=== PATIENT | female | born 1940 | race Caucasian/White ===

== ENCOUNTER 2020-01-03 09:58 | Emergency (ER) | payer MEDICARE, SELFPAY ==
[2020-01-03 10:08] VITALS: BP 157/82; PULSE 99; RESP 18; TEMP 36.4; O2SAT 100
--- NOTE | 2020-01-03 10:08 | ED.WOUNDLAC ---
HPI - Wound/Laceration General Chief Complaint: Wound/Laceration Stated Complaint: finger lac Time Seen by Provider: 01/03/20 10:09 History of Present Illness HPI narrative: She cut the tip of her left index finger while slicing food this morning. Bleeding controlled minimal pain. Unsure of tetanus status. Related Data Home Medications Medication Instructions Recorded Confirmed Centrum Silver Women 01/03/20 alendronate mg PO 01/03/20 aspirin 01/03/20 atenolol 01/03/20 calcium carbonate [Calcium 500] 500 mg PO DAILY 01/03/20 01/03/20 echinacea 500 mg PO BID 01/03/20 01/03/20 losartan 01/03/20 omega 9-nzk-iaf-fish oil [Fish Oil] cap PO 01/03/20 pantoprazole PO 01/03/20 protein [Boost High Protein] ea PO 01/03/20 Allergies Allergy/AdvReac Type Severity Reaction Status Date / Time RICE Allergy Severe Swelling Uncoded 02/09/14 01:20 Review of Systems Review of Systems: All systems reviewed & are unremarkable except as noted in HPI and below PMFSH Social History Social History Gender identity (if verbalized by the patient): Female Exam Const: General: healthy appearing, no acute distress and alert Orientation/consciousness: patient oriented x3 HENMT: Head: normal to inspection Resp: Effort & Inspection: normal respiratory effort Skin: General skin exam: normal color Wounds: wounds noted (3 cm laceration to distal left index finger without fingernail involvement) Course Vital Signs Vital signs: Vital Signs Temperature 36.4 C L 01/03/20 10:08 Pulse Rate 99 01/03/20 10:08 Respiratory Rate 18 01/03/20 10:08 Blood Pressure 157/82 H 01/03/20 10:08 Pulse Oximetry 100 01/03/20 10:08 Temperature 36.4 C L 01/03/20 10:08 Pulse Rate 99 01/03/20 10:08 Respiratory Rate 18 01/03/20 10:08 Blood Pressure 157/82 H 01/03/20 10:08 Pulse Oximetry 100 01/03/20 10:08 Procedures Laceration Laceration 1: Site: hand Side (If applicable): left Size (cm): 3 Description: flap Depth: simple, single layer Local Anesthetic: lidocaine 1% Pre-repair: wound explored and irrigated ====== Skin Level ====== Size (cm): 5-0 Number of sutures: 5 Technique: simple, interrupted ====== Subcutaneous Layer ====== ====== Muscle Layer ====== ====== Tendon Layer ====== Discharge Plan Discharge Clinical Impression: Finger laceration Patient Disposition: Home, Self-Care Condition: Stable Instructions: Laceration (ED) Additional Instructions: follow-up for suture removal in 10-14 days Prescriptions: No Action losartan 50 mg tablet RF: 0 alendronate 70 mg tablet PO RF: 0 calcium carbonate [Calcium 500] 500 mg calcium (1,250 mg) Tablet 500 mg PO DAILY RF: 0 pantoprazole 40 mg tablet,delayed release (DR/EC) PO RF: 0 echinacea 500 mg Capsule 500 mg PO BID RF: 0 protein [Boost High Protein] Powder PO RF: 0 aspirin 81 mg Tablet,Chewable RF: 0 atenolol 50 mg tablet RF: 0 omega 5-jpx-mxp-fish oil [Fish Oil] 1,000 mg (120 mg-180 mg) Capsule PO RF: 0 Centrum Silver Women RF: 0 Follow-up/Referrals: Can Thomas MD [Primary Care Provider] - Discharge Date/Time: 01/03/20 11:26
[2020-01-03] MEDS: TETANUS,DIPHTHERIA,AC PERTUSSIS ADULT (0.5 ML) BOOSTRIX IM (10:23)
== END 2020-01-03 11:26 | disposition home or self-care (01) ==
PROVIDERS: Emergency Provider Emergency Medicine; PCP Family Medicine
DX: S61.211A Laceration without foreign body of left index finger without damage to nail, initial encounter (principal); Z23 Encounter for immunization; Z79.82 Long term (current) use of aspirin; W26.0XXA Contact with knife, initial encounter; Y93.G1 Activity, food preparation and clean up
CPT/HCPCS: 12002; 90471; 90715; 99282

== ENCOUNTER 2020-09-06 14:43 | Inpatient (IN) | payer MEDICARE, SELFPAY ==
[2020-09-06] VITALS (9 sets, daily range): BP systolic 118–153; BP diastolic 52–107; PULSE 64–109; RESP 14–18; TEMP 36.1–36.3; O2SAT 96–100; BMI 21.8
--- NOTE | ~2020-09-06 | XR_ITS ---
EXAMINATION: XR chest 2V EXAM DATE: 09/06/2020 15:26 INDICATION: Right-sided midsternal chest pain. TECHNIQUE: Frontal and lateral projections of the chest obtained and reviewed. Comparison is made to prior examination from 06/19/2014. FINDINGS: Moderate chronic hyperinflation. Biapical scarring and change. Some left basilar opacity a lso unchanged probably atelectasis or scarring. No acute airspace disease, pneumothorax or pleural ef fusion. Cardiomediastinal silhouette is normal. There is aortic arteriosclerosis. Mild to moderate lo wer thoracic spondylosis. IMPRESSION: No acute cardiopulmonary findings. Reviewed, dictated and finalized at location B. [employer] ARCHITECT
--- NOTE | 2020-09-06 14:44 | ECG_ITS ---
Measurements Intervals [place] Rate: 77 P: 68 CO: 163 QRS: 32 QRSD: 86 T: 55 QT: 355 QTc: 404 Interpretive Statements SINUS RHYTHM CANNOT RULE OUT SEPTAL INFARCT, AGE INDETERMINATE ABNORMAL ECG Electronically Signed On 09-06-2020 14:56:02 INFORMATION DELIVERY ANALYST by Beau Dykes D.O.
--- NOTE | 2020-09-06 15:29 | ED.CHESTPAIN ---
HPI - Chest Pain General Chief Complaint: Chest Pain Stated Complaint: chest pain Time Seen by Provider: 09/06/20 15:28 Source: patient Mode of arrival: ambulatory Limitations: no limitations History of Present Illness HPI narrative: Patient 80-year-old female complaining of chest pain, midsternal, radiating to her whole chest, 6 out of 10 earlier, currently denies any pain resolved when she arrived, accompanied by mild shortness of breath on exertion. Patient denies any nausea, vomiting, abdominal pain, diaphoresis, fever or chills. Related Data Home Medications Medication Instructions Recorded Confirmed Centrum Silver Women 01/03/20 alendronate mg PO 01/03/20 aspirin 01/03/20 atenolol 01/03/20 calcium carbonate [Calcium 500] 500 mg PO DAILY 01/03/20 01/03/20 echinacea 500 mg PO BID 01/03/20 01/03/20 losartan 01/03/20 omega 7-fal-tjr-fish oil [Fish Oil] cap PO 01/03/20 pantoprazole PO 01/03/20 protein [Boost High Protein] ea PO 01/03/20 Allergies Allergy/AdvReac Type Severity Reaction Status Date / Time RICE Allergy Severe Swelling Uncoded 02/09/14 01:20 Review of Systems Review of Systems: All systems reviewed & are unremarkable except as noted in HPI and below Constitutional: Constitutional: Denies body ache(s), Denies chills, Denies excessive sweating, Denies fatigue, Denies fever(s), Denies headache(s), Denies lethargy, Denies malaise, Denies weakness and Denies weight loss Eyes: Eyes: Denies blurry vision, Denies change in vision and Denies loss of vision ENT: Denies dizziness, Denies ear discharge, Denies headache(s), Denies lip swelling, Denies epistaxis, Denies nasal congestion, Denies neck pain, Denies throat swelling and Denies tongue swelling Cardiovascular: Cardiovascular: Denies diaphoresis, Denies rapid heart rate, Denies edema, Denies irregular heart rhythm, Denies lightheadedness and Denies palpitations Respiratory: Respiratory: Denies chest congestion, Denies cough and Denies hemoptysis Gastrointestinal: Gastrointestinal: Denies abdominal pain, Denies melena, Denies hematochezia, Denies diarrhea, Denies nausea, Denies vomiting and Denies hematemesis Musculoskeletal: Musculoskeletal: Denies abnormal gait, Denies deformity, Denies joint swelling, Denies limited range of motion, Denies neck pain and Denies numbness Neurologic: Denies Abnormal speech present, Denies abnormal gait, Denies confusion, Denies dizziness, Denies headache(s), Denies focal weakness, Denies loss of vision, Denies numbness, Denies Other visual disturbances, Denies Sensory deficit (Neuro) and Denies weakness Psychiatric: Psychiatric: Denies confusion, Denies depression, Denies auditory hallucinations, Denies homicidal ideation and Denies suicidal ideation Endocrine: Endocrine: Denies cold intolerance, Denies excessive sweating, Denies fatigue, Denies heat intolerance and Denies palpitations Hematologic/Lymphatic: Hematologic/Lymphatic: Denies easy bleeding and Denies easy bruising Allergic/Immunologic: Allergic/Immunologic: Denies lip swelling, Denies throat swelling and Denies tongue swelling [facility] Social History Social History Gender identity (if verbalized by the patient): Female Exam Const: General: cooperative, healthy appearing, comfortable, no acute distress, well developed, alert and awake; No confusion Orientation/consciousness: oriented to person, oriented to place and No confusion Limitations: no limitations HENMT: Head: normal to inspection, normocephalic and atraumatic Ears: hearing grossly normal bilaterally, TM normal on the right and TM normal on the left General nose exam: Normal external nose present, Normal nares present and No nasal discharge present Face and sinus: normal facial exam Mouth: Yes Normal oral and palatal mucosa present, Yes lip normal, Yes tongue normal and Yes oropharynx normal Throat: posterior oropharynx normal, tonsils n
[2020-09-06 15:42] LABS: Basophils Percent Auto 0.4 % (0.2-1.2); Eosinophils Absolute Auto 0.2 K/mm3 (0-0.3); Eosinophils Percent Auto 1.4 % (0-4.4); Hematocrit 40.3 % (37.0-47.0); Hemoglobin 13.2 g/dL (12.0-15.0); Immature Granulocyte Absolute 0.05 K/mm3 (0.00-0.031); Immature Granulocyte Percent A 0.5 % (0-0.5); Lymphocytes Absolute Auto 2.98 K/mm3 (0.9-3.2); Lymphocytes Percent Auto 27.6 % (18.3-44.2); Mean Corpuscular HGB Conc 32.8 g/dl (32-36); Mean Corpuscular Hemoglobin 29.7 pg (26-34); Mean Corpuscular Volume 90.6 fl (80-100); Mean Platelet Volume 10.4 fl (7.4-10.4); Monocytes Absolute Auto 0.9 K/mm3 (0.1-0.6); Monocytes Percent Auto 8.3 % (2.6-8.5); Neutrophils Absolute Auto 6.7 K/mm3 (1.3-6.7); Neutrophils Percent Auto 61.8 % (45.5-73.1); Platelet Count Result 305 k/mm3 (150-375); Red Blood Count 4.45 M/mm3 (4.2-5.4); Red Cell Distribution Width 13.1 % (11.5-14.5); White Blood Count 10.8 K/mm3 (4.5-10.0)
[2020-09-06 15:51] LABS: Prothrombin Time 13.9 Seconds (11.1-14.7)
[2020-09-06 15:52] LABS: Partial Thromboplastin Time 23.8 SECONDS (22.3-36.8)
[2020-09-06] MEDS: ASPIRIN 81 MG CHEWABLE TABLET 324 MG PO (15:52)
[2020-09-06 15:54] LABS: Anion Gap 6 mmol/L (8-16); Blood Urea Nitrogen 23 mg/dL (7-17); Calcium 9.6 mg/dL (8.4-10.2); Carbon Dioxide 31 mmol/L (22-30); Chloride 101 mmol/L (98-107); Estimated CRCL calculation 34 ml/min; Estimated Glomerular Filt Rate 60; Glucose 152 mg/dL (65-105); Potassium 4.4 mmol/L (3.4-5.0); Sodium 138 mmol/L (137-145)
[2020-09-06 16:09] LABS: Troponin I 0.031 ng/mL (0.000-0.034)
[2020-09-06] MEDS: ENOXAPARIN 80 MG/0.8 ML SYRINGE 60 MG SUB-Q (19:31)
--- NOTE | 2020-09-06 23:24 | PM.IMHP ---
H&P: HPI History of Present Illness Date/Time: 09/06/20 23:24 Chief Complaint: Chest pain Narrative: Cora Lamar is a 80 year old female with a past medical history of GERD and hypertension who presented to the ER via private vehicle with chest pain. The patient reported that about an hour and a half prior to coming to the ER she began having precordial/midsternal chest pain. Her pain was a 6/10 in intensity. She is unable to describe the quality of the chest pain but thought it was due to her lungs as she had some accompanying shortness of breath. Her pain occurred when she was sitting on the computer typing a. Her pain worsened when she stood up to walk into the kitchen. She did have some tightness in her jaw. She denied any radiation of pain to her arms. She was not having any nausea, vomiting or diaphoresis. She went to lay down after the pain started and tried laying a cool rag across her chest. She did not notice any relief in her symptoms with rest. She thinks that she may have fallen asleep briefly but when she woke up with still having significant chest pain. After she woke up from her nap her primary care physician's office had actually called to give her some results of is a prior labs. She told them of her current symptoms and they suggested she go to the ER. Around that time the patient's daughter had come over to the house and brought the patient to the ER for evaluation. Patient reported that her symptoms resolved when she arrived to triage. She has not noticed any proceeding orthopnea, lower extremity edema, or paroxysmal nocturnal dyspnea. She had never had pain similar to this before. She has had difficulty with asthma and pneumonia in the past and daughter symptoms may be due to that. However she was not having any cough, congestion, fevers or chills. In the ER her initial troponin was negative and her EKG demonstrated possible septal infarct age indeterminate. She is quite concerned that her has it sounds like moderate to severe dementia is at home. Her daughter is currently with her but she wants to be discharged in the morning so that she can go home and take care of her 's or daughter can go to work. I stressed to the patient that she has had a non STEMI/heart attack and that it is best if she remain in the hospital incomplete her cardiac evaluation. She verbalized understanding but is still quite distressed. The patient was alert and oriented x3 but seemed to have some mild confusion. Review of Systems Review of Systems: Narrative: 12 systems were reviewed with pertinent positives and negatives per HPI. Except as documented in the HPI, all other systems were reviewed and are negative. [facility] Past Medical History Medical History (Updated 09/07/20 @ 03:21 by Fatimah Hernández DO) Essential hypertension GERD (gastroesophageal reflux disease) Hemorrhoids Herpes zoster dermatitis 1993 Migraines Overflow stress urinary incontinence in female Post-menopausal osteoporosis Surgical History Surgical History (Updated 09/06/20 @ 23:30 by Fatimah Hernández DO) History of appendectomy History of right knee surgery 1971 Hx of tonsillectomy S/P foot surgery, left Growth removed from left foot 1990 Family History Family History Father Acute myocardial infarction Sibling Heart disease Acute myocardial infarction Mother Hemochromatosis Cerebrovascular accident Leukemia Social History Social History (Updated 09/07/20 @ 03:32 by Fatimah Hernández DO) Social History: She lives in 91-year-old who is moderate to severe dementia. She is primary caregiver. Her daughter lives next door. They have been for 31 years. She has 3 biologic children and 3 step children. Her children are all healthy. Her 59-year-old son does have some difficulty with prostate issues. She used to work answering telephones for
[2020-09-07] VITALS (13 sets, daily range): BP systolic 92–127; BP diastolic 47–70; PULSE 59–78; RESP 12–22; TEMP 36.1–36.9; O2SAT 94–100
--- NOTE | 2020-09-07 00:53 | ADMIMU ---
This patient, Cora Lamar, was admitted to IMU status, and placed in IMU Room 206-02 09/06/20 at 2110. Patient/family oriented to hospital policies and general routines including ID bracelet, bed and alarms, visiting hours, pain management, procedures, bathroom and other care routines, personal items, smoking policy, room service/diet, and visiting hours. Information on how to activate the Rapid Response Team has been discussed. Patient/Family are encouraged to report perceived risks to care and to ask questions if they do not understand what they are told or what they should do.
[2020-09-07 06:01] LABS: Anion Gap 3 mmol/L (8-16); Blood Urea Nitrogen 19 mg/dL (7-17); Calcium 8.8 mg/dL (8.4-10.2); Carbon Dioxide 30 mmol/L (22-30); Chloride 106 mmol/L (98-107); Estimated CRCL calculation 34 ml/min; Estimated Glomerular Filt Rate 60; Glucose 94 mg/dL (65-105); Potassium 3.9 mmol/L (3.4-5.0); Sodium 139 mmol/L (137-145)
--- NOTE | 2020-09-07 07:55 | ECG_ITS ---
Measurements Intervals [place] Rate: 67 P: 38 DC: 145 QRS: 13 QRSD: 80 T: -24 QT: 416 QTc: 441 Interpretive Statements SINUS RHYTHM T WAVE ABNORMALITY IN ANTEROLATERAL LEADS- CONSIDER ISCHEMIA BASELINE ARTIFACT- I, II, III, AVR, AVF, V1 ABNORMAL ECG Electronically Signed On 09-07-2020 11:06:29 FARM MACHINERY ENGINE MECHANIC by Beau Dykes D.O.
[2020-09-07 08:10] LABS: Alanine Aminotransferase 30 U/L (4-35); Albumin Level 3.5 g/dL (3.5-5.1); Alkaline Phosphatase 57 U/L (38-126); Aspartate Amino Transferase 50 U/L (14-36); Bilirubin,Total 0.4 mg/dL (0.2-1.3); Cholesterol 234 mg/dL (0-200); HDL Direct 27 mg/dL; Triglycerides 215 mg/dL (<150)
[2020-09-07 08:21] LABS: LDL Cholesterol Direct 175 mg/dL
[2020-09-07] MEDS: atenoloL 50 MG TABLET PO (10:22)
[2020-09-07] MEDS: CALCIUM CARBONATE (OSCAL) 500 MG TABLET PO (10:23)
[2020-09-07] MEDS: OMEGA 3 POLYUNSAT FATTY ACIDS 1 GM CAP PO (10:23)
[2020-09-07] MEDS: PANTOPRAZOLE 40 MG TABLET PO (10:23)
[2020-09-07] MEDS: MULTIVITAMINS /C LUTEIN (CENTRUM SILVER) TABLET *BKC 1 TAB PO (10:23)
[2020-09-07] MEDS: VITAMIN E 400 UNIT CAPSULE PO (10:23)
[2020-09-07] MEDS: ASPIRIN 81 MG CHEWABLE TABLET PO (10:23)
[2020-09-07] MEDS: CHOLECALCIFEROL 1,000 UNITS TABLET 1000 UNITS PO (10:24)
[2020-09-07] MEDS: LOSARTAN POTASSIUM 50 MG TABLET PO (10:24)
[2020-09-07] MEDS: VITAMIN B COMPLEX CAPSULE 1 CAP PO (10:24)
--- NOTE | 2020-09-07 12:52 | PM.CNCAR ---
Assessment and Plan Additional Plan NSTEMI, EKG changes concerning for LAD disease, plan heparin, ASA, statin, B-tata, TTE and cath on wednesday, We will cosnider urgent cath if she becomes unstable. History of Present Illness History of Present Illness Consult date/time: 09/07/20 12:52 Reason For Visit: NSTEMI Narrative: Patient presented with acute diffuse chest pain started yesterday, lasted for hours, severe, non radiating, no precipitating or relieving factors. No priro similar episodes. Today she feels better. Review of Systems Review of Systems: All systems reviewed & are unremarkable except as noted in HPI and below PMFSH Past Medical History Medical History (Updated 09/07/20 @ 03:21 by Fatimah Hernández DO) Essential hypertension GERD (gastroesophageal reflux disease) Hemorrhoids Herpes zoster dermatitis 1993 Migraines Overflow stress urinary incontinence in female Post-menopausal osteoporosis Surgical History Surgical History (Updated 09/06/20 @ 23:30 by Fatimah Hernández DO) History of appendectomy History of right knee surgery 1971 Hx of tonsillectomy S/P foot surgery, left Growth removed from left foot 1990 Family History Family History Father Acute myocardial infarction Sibling Heart disease Acute myocardial infarction Mother Hemochromatosis Cerebrovascular accident Leukemia Social History Social History (Updated 09/07/20 @ 03:32 by Fatimah Hernández DO) Social History: She lives in 91-year-old who is moderate to severe dementia. She is primary caregiver. Her daughter lives next door. They have been for 31 years. She has 3 biologic children and 3 step children. Her children are all healthy. Her 59-year-old son does have some difficulty with prostate issues. 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 She is a lifelong nonsmoker. She used to drink on occasion but has not done so in many years. She denies illicit substance use. She ambulates with a cane. Primary care physician: Dr. Can Thomas Code status: Full code Surrogate decision maker: Althea Vela (daughter) Smoking status: Never smoker Second hand tobacco smoke exposure: Yes Alcohol intake: never Substance use: never Gender identity (if verbalized by the patient): Female Spiritual care concerns: No Meds Home Medications and Allergies Home Medications Medication Instructions Recorded Confirmed Type Centrum Silver Women 1 tablet PO DAILY 01/03/20 09/06/20 History alendronate 70 mg PO WEEKLY 01/03/20 09/06/20 History aspirin 81 mg PO DAILY 01/03/20 09/06/20 History atenolol 50 mg PO DAILY 01/03/20 09/06/20 History calcium carbonate [Calcium 500] 500 mg PO DAILY 01/03/20 09/06/20 History echinacea 760 mg PO DAILY 01/03/20 09/06/20 History losartan 50 mg PO DAILY 01/03/20 09/06/20 History omega 9-gmn-hqo-fish oil [Fish Oil] 1 cap PO DAILY 01/03/20 09/06/20 History protein [Boost High Protein] 1 ea PO DAILY 01/03/20 09/06/20 History cholecalciferol (vitamin D3) 25 mcg PO DAILY 09/06/20 09/06/20 History [Vitamin D3] pantoprazole 40 mg PO DAILY 09/06/20 09/06/20 History vitamin B complex [B 1 tablet PO DAILY 09/06/20 09/06/20 History Complex-Vitamin B12] vitamin E 400 unit PO DAILY 09/06/20 09/06/20 History Allergies Allergy/AdvReac Type Severity Reaction Status Date / Time RICE Allergy Severe Swelling Uncoded 09/06/20 21:33 Vital Signs Vital Signs - 24 hr 09/06/20 14:58 09/06/20 15:19 09/06/20 15:52 Temperature 36.2 C L Pulse Rate 83 77 70 Respiratory Rate 18 18 18 Blood Pressure 135/77 149/80 H Pulse Oximetry 100 96 98 09/06/20 17:08 09/06/20 18:08 09/06/20 19:23 Temperature Pulse Rate 67 64 109 H Respiratory Rate 15 16 14 Blood Pressure 123/62 141/67 H 153/107 H Pulse Oximetry 99 99 97 09/06/20 21:16 09/06/20 21:20 09/06/20 23:58 Temperature 36.1 C L 36.
--- NOTE | 2020-09-07 15:38 | PM.IMPN ---
Progress Note: A&P Assessment and Plan (1) Non-ST elevated myocardial infarction (non-STEMI): Code(s): I21.4 - Non-ST elevation (NSTEMI) myocardial infarction Status: Acute (2) Essential hypertension: Code(s): I10 - Essential (primary) hypertension Status: Acute (3) Hyperlipidemia: Code(s): E78.5 - Hyperlipidemia, unspecified Status: Acute Additional Plan 09/06/20:: Patient presented with chest pain and labs demonstrated evidence of non STEMI. Patient is not having any further chest pain. She received 325 mg of aspirin and 1 dose of therapeutic Lovenox. Cardiology was consulted. Patient has been admitted to IMU and is being monitored on telemetry. Serial cardiac enzymes have demonstrated significant troponin elevation. Patient's home angiotensin receptor tata and beta-tata were continued. The patient's blood pressure has been intermittently outside of the goal range since admission. P.r.n. nitroglycerin been ordered. 09/07/20:: Mey is chest pain free. She is worried about her . EKG repeated today showing T wave changes in the anteriolateral leads. EKG reviewed and these are new changes with inverted T waves now. Trop peaked at 4.4. TG 215. TC 234. LDL 175 and HDL 27. Lipitor started. Appreciate cardiology input. [facility] planned for Wednesday. Lovenox continued Subjective Date/time seen: 09/07/20 15:38 Interval history: Date of service 09/07 80yo female with HTN here for CP and found to have NSTEMI. No further CP since admisison. No SOB. SHe is under a lot of stress due to caring for her semile . No n/v. No abd pain. Exam Narrative: Exam Narrative: AF 98.0 93/47 75 12 94% ra Gen - NARD Chest - CTA bilaterally, nml RR CV - RRR S1/S2; Tele showing PVCs Abd - Soft, NT/ND, Positive BS Ext - No pedal edema Neuro - Alert and oriented. Nonfocal exam. Psych - Nml mood and affect Skin - Warm and dry Objective Data Vital Signs Vital Signs: Vital Signs - 24 hr 09/06/20 15:52 09/06/20 17:08 09/06/20 18:08 Temperature Pulse Rate 70 67 64 Respiratory Rate 18 15 16 Blood Pressure 123/62 141/67 H Pulse Oximetry 98 99 99 09/06/20 19:23 09/06/20 21:16 09/06/20 21:20 Temperature 97 F L Pulse Rate 109 H 85 81 Respiratory Rate 14 18 Blood Pressure 153/107 H 147/60 H Pulse Oximetry 97 100 09/06/20 23:58 09/07/20 00:00 09/07/20 02:00 Temperature 97.3 F L Pulse Rate 66 78 63 Respiratory Rate 18 Blood Pressure 118/52 L Pulse Oximetry 100 09/07/20 04:00 09/07/20 06:00 09/07/20 08:00 Temperature 96.9 F L 97.5 F L Pulse Rate 72 61 72 Respiratory Rate 18 22 H Blood Pressure 127/70 101/51 L Pulse Oximetry 100 97 09/07/20 10:00 09/07/20 10:22 09/07/20 12:00 Temperature 98 F Pulse Rate 70 78 60 Respiratory Rate 12 Blood Pressure 93/47 L Pulse Oximetry 94 09/07/20 14:00 Temperature Pulse Rate 75 Respiratory Rate Blood Pressure Pulse Oximetry Intake/Output Intake/Output: Intake & Output 09/04/20 09/05/20 09/06/20 09/07/20 23:59 23:59 23:59 23:59 Intake Total 0 Output Total 1100 Balance -1100 Meds/Results Medications: Active Medications Generic Name Dose Route Start Last Admin Trade Name Willyq PRN Reason Stop Dose Admin Aspirin 81 mg 09/07/20 08:00 09/07/20 10:23 Aspirin 81 Mg Chewable Tablet PO 81 mg DAILY@0800 [facility] Administration Atenolol 50 mg 09/07/20 09:00 09/07/20 10:22 Atenolol 50 Mg Tablet PO 50 mg DAILY [facility] Administration Atorvastatin Calcium 40 mg 09/07/20 09:00 Atorvastatin 40 Mg Tablet PO DAILY [facility] Calcium Carbonate 500 mg 09/07/20 09:00 09/07/20 10:23 Calcium Carbonate (Oscal) 500 Mg Tablet PO 500 mg DAILY [facility] Administration Enoxaparin Sodium 55 mg 09/07/20 14:00 Enoxaparin 60 Mg/0.6 Ml Syringe SUB-Q Q12H [facility] Fish Oil 1 gm 09/07/20 09:00 09/07/20 10:23 [place] 3 Polyunsat Fatty Acids 1 Gm Ca
[2020-09-07] MEDS: ATORVASTATIN 40 MG TABLET PO (16:45)
[2020-09-07] MEDS: ENOXAPARIN 60 MG/0.6 ML SYRINGE 55 MG SUB-Q (16:45)
[2020-09-08] VITALS (17 sets, daily range): BP systolic 102–145; BP diastolic 52–65; PULSE 57–83; RESP 16–18; TEMP 36.1–36.7; O2SAT 90–100
[2020-09-08] MEDS: ENOXAPARIN 60 MG/0.6 ML SYRINGE 55 MG SUB-Q ×2 (05:56→17:14)
[2020-09-08] MEDS: atenoloL 50 MG TABLET PO (10:32)
[2020-09-08] MEDS: CALCIUM CARBONATE (OSCAL) 500 MG TABLET PO (10:32)
[2020-09-08] MEDS: OMEGA 3 POLYUNSAT FATTY ACIDS 1 GM CAP PO (10:32)
[2020-09-08] MEDS: VITAMIN E 400 UNIT CAPSULE PO (10:32)
[2020-09-08] MEDS: VITAMIN B COMPLEX CAPSULE 1 CAP PO (10:33)
[2020-09-08] MEDS: CHOLECALCIFEROL 1,000 UNITS TABLET 1000 UNITS PO (10:33)
[2020-09-08] MEDS: MULTIVITAMINS /C LUTEIN (CENTRUM SILVER) TABLET *BKC 1 TAB PO (10:33)
[2020-09-08] MEDS: PANTOPRAZOLE 40 MG TABLET PO (10:33)
[2020-09-08] MEDS: LOSARTAN POTASSIUM 50 MG TABLET PO (10:33)
[2020-09-08] MEDS: ASPIRIN 81 MG CHEWABLE TABLET PO (10:36)
--- NOTE | 2020-09-08 11:47 | PM.PNCARD ---
Progress Note: A&P Additional Plan NSTEMI, HTN and dyslipidemia, plan CAth in AM, Lovenox, ASA, Statin, B-taat, ARB Subjective Date/time seen: 09/08/20 11:47 Interval history: No acute events overnight Tele: Review of Systems Review of Systems: All systems reviewed & are unremarkable except as noted in HPI and below Exam Const: General: comfortable and no acute distress Other: Able to lie flat HENMT: General nose exam: Normal nares present and no epistaxis Mouth: Yes moist mucous membranes Eyes: Sclera: sclerae normal Pupils: Equal, round and reactive pupils present Neck: Neck: supple and no JVD Carotids: no bruits Resp: Auscultation: clear to auscultation bilaterally and lung sounds not diminished Other: No chest wall tenderness Cardio: Rate: regular rate Rhythm: regular rhythm Heart sounds: no gallops, no murmurs and no rubs GI: GI Palp: Yes Soft to palpation and No Tenderness to palpation present (GI) Auscultation: normal bowel sounds Skin: General skin exam: normal color, rashes and/or lesions noted and no erythema Other: Warm Neuro: Cranial nerves: Yes Equal, round and reactive pupils present Speech: normal speech Other: No obvious focal deficit or facial asymmetry Extrem: General: no edema Other: Normal capillary refills Intact distal pulses. Objective Data Vital Signs Vital Signs: Vital Signs - 24 hr 09/07/20 12:00 09/07/20 14:00 09/07/20 16:00 Temperature 36.6 C 36.9 C Pulse Rate 60 75 66 Respiratory Rate 12 12 Blood Pressure 93/47 L 92/48 L Pulse Oximetry 94 99 09/07/20 20:00 09/07/20 22:00 09/07/20 23:41 Temperature 36.3 C L 36.2 C L Pulse Rate 71 76 66 Respiratory Rate 18 18 Blood Pressure 93/52 L 95/56 L Pulse Oximetry 96 97 09/08/20 00:00 09/08/20 02:00 09/08/20 04:00 Temperature 36.1 C L Pulse Rate 65 67 63 Respiratory Rate 18 Blood Pressure 102/54 L Pulse Oximetry 97 91 09/08/20 06:00 09/08/20 08:00 09/08/20 08:21 Temperature 36.3 C L Pulse Rate 60 74 Respiratory Rate 16 Blood Pressure 107/62 Pulse Oximetry 97 90 09/08/20 10:32 Temperature Pulse Rate 77 Respiratory Rate Blood Pressure Pulse Oximetry Intake/Output Intake/Output: Intake & Output 09/05/20 09/06/20 09/07/20 09/08/20 23:59 23:59 23:59 23:59 Intake Total 0 120 Output Total 1500 700 Balance -1500 -580 Meds/Results Medications: Active Medications Generic Name Dose Route Start Last Admin Trade Name Radha PRN Reason Stop Dose Admin Aspirin 81 mg 09/07/20 08:00 09/08/20 10:36 Aspirin 81 Mg Chewable Tablet PO 81 mg DAILY@0800 TAMARA Administration Atenolol 50 mg 09/07/20 09:00 09/08/20 10:32 Atenolol 50 Mg Tablet PO 50 mg DAILY TAMARA Administration Atorvastatin Calcium 40 mg 09/07/20 09:00 09/07/20 16:45 Atorvastatin 40 Mg Tablet PO 40 mg DAILY TAMARA Administration Calcium Carbonate 500 mg 09/07/20 09:00 09/08/20 10:32 Calcium Carbonate (Oscal) 500 Mg Tablet PO 500 mg DAILY TAMARA Administration Enoxaparin Sodium 55 mg 09/08/20 06:00 09/08/20 05:56 Enoxaparin 60 Mg/0.6 Ml Syringe SUB-Q 55 mg Q12H TAMARA Administration Fish Oil 1 gm 09/07/20 09:00 09/08/20 10:32 [place] 3 Polyunsat Fatty Acids 1 Gm Cap PO 1 gm DAILY TAMARA Administration Losartan Potassium 50 mg 09/07/20 09:00 09/08/20 10:33 Losartan Potassium 50 Mg Tablet PO 50 mg DAILY TAMARA Administration Multivitamins/Minerals 1 tab 09/07/20 09:00 09/08/20 10:33 Multivitamins /C Lutein (Centrum Silver) Tablet *Bkc PO 1 tab QAM TAMARA Administration Nitroglycerin 0.4 mg 09/06/20 19:12 Nitroglycerin Sl 0.4 Mg Tablet SUBLINGUAL Q5MIN PRN Chest Pain Pantoprazole Sodium 40 mg 09/07/20 09:00 09/08/20 10:33 Pantoprazole 40 Mg Tablet PO 40 mg DAILY TAMARA Administration Vitamin B Complex 1 cap 09/07/20 09:00 09/08/20 10:33 Vitamin B Complex Capsule PO 1 cap DAILY TAMARA Adminis
[2020-09-08] MEDS: ATORVASTATIN 40 MG TABLET PO (14:01)
--- NOTE | 2020-09-08 15:24 | PM.IMPN ---
Progress Note: A&P Assessment and Plan (1) Non-ST elevated myocardial infarction (non-STEMI): Code(s): I21.4 - Non-ST elevation (NSTEMI) myocardial infarction Status: Acute (2) Essential hypertension: Code(s): I10 - Essential (primary) hypertension Status: Acute (3) Hyperlipidemia: Code(s): E78.5 - Hyperlipidemia, unspecified Status: Acute Additional Plan 09/06/20:: Patient presented with chest pain and labs demonstrated evidence of non STEMI. Patient is not having any further chest pain. She received 325 mg of aspirin and 1 dose of therapeutic Lovenox. Cardiology was consulted. Patient has been admitted to IMU and is being monitored on telemetry. Serial cardiac enzymes have demonstrated significant troponin elevation. Patient's home angiotensin receptor tata and beta-tata were continued. The patient's blood pressure has been intermittently outside of the goal range since admission. P.r.n. nitroglycerin been ordered. 09/07/20:: Mey is chest pain free. She is worried about her . EKG repeated today showing T wave changes in the anteriolateral leads. EKG reviewed and these are new changes with inverted T waves now. Trop peaked at 4.4. TG 215. TC 234. LDL 175 and HDL 27. Lipitor started. Appreciate cardiology input. LHC planned for Wednesday. Lovenox continued 09/08/20:: Patient appears to be mildly confused after waking up from nap and now seems flustered. No focal findings so will monitor for now. Plan for LHC in the morning. NPO after midnight. Subjective Date/time seen: 09/08/20 15:24 Interval history: Date of service 09/08 80yo female with HTN here for CP and found to have NSTEMI. [place] warm today after a nap. She also states she felt confused after waking up from the nap. She is mostly oriented now. No cp or SOB. Eating okay. No cough. She is worried about her Exam Narrative: Exam Narrative: AF 98.1 110/65 69 16 98% ra Gen - NARD Chest - CTA bilaterally, nml RR CV - RRR S1/S2; Tele showing PVCs Abd - Soft, NT/ND, Positive BS Ext - No pedal edema Neuro - Alert and oriented x3 (did not know the president's name). Nonfocal exam. Psych - Nml mood and affect Skin - Warm and dry Objective Data Vital Signs Vital Signs: Vital Signs - 24 hr 09/07/20 16:00 09/07/20 20:00 09/07/20 22:00 Temperature 98.5 F 97.4 F L Pulse Rate 66 71 76 Respiratory Rate 12 18 Blood Pressure 92/48 L 93/52 L Pulse Oximetry 99 96 09/07/20 23:41 09/08/20 00:00 09/08/20 02:00 Temperature 97.2 F L Pulse Rate 66 65 67 Respiratory Rate 18 Blood Pressure 95/56 L Pulse Oximetry 97 97 09/08/20 04:00 09/08/20 06:00 09/08/20 08:00 Temperature 97 F L 97.4 F L Pulse Rate 63 60 74 Respiratory Rate 18 16 Blood Pressure 102/54 L 107/62 Pulse Oximetry 91 97 09/08/20 08:21 09/08/20 10:00 09/08/20 10:32 Temperature Pulse Rate 83 77 Respiratory Rate Blood Pressure Pulse Oximetry 90 09/08/20 12:00 09/08/20 14:00 Temperature 98.1 F Pulse Rate 77 69 Respiratory Rate 16 Blood Pressure 110/65 Pulse Oximetry 98 Intake/Output Intake/Output: Intake & Output 09/05/20 09/06/20 09/07/20 09/08/20 23:59 23:59 23:59 23:59 Intake Total 0 360 Output Total 1500 700 Balance -1500 -340 Meds/Results Medications: Active Medications Generic Name Dose Route Start Last Admin Trade Name Radha PRN Reason Stop Dose Admin Aspirin 81 mg 09/07/20 08:00 09/08/20 10:36 Aspirin 81 Mg Chewable Tablet PO 81 mg DAILY@0800 [facility] Administration Atenolol 50 mg 09/07/20 09:00 09/08/20 10:32 Atenolol 50 Mg Tablet PO 50 mg DAILY [facility] Administration Atorvastatin Calcium 40 mg 09/07/20 09:00 09/08/20 14:01 Atorvastatin 40 Mg Tablet PO 40 mg DAILY [facility] Administration Calcium Carbonate 500 mg 09/07/20 09:00 09/08/20 10:32 Calcium Carbonate (Oscal) 500 Mg Tablet PO 500 mg DAILY [facility] Administratio
[2020-09-09] VITALS (38 sets, daily range): BP systolic 110–158; BP diastolic 51–94; PULSE 57–94; RESP 15–24; TEMP 35.6–36.6; O2SAT 96–100
[2020-09-09 04:55] LABS: Hematocrit 38.7 % (37.0-47.0); Hemoglobin 12.7 g/dL (12.0-15.0); Mean Corpuscular HGB Conc 32.8 g/dl (32-36); Mean Corpuscular Volume 88.4 fl (80-100); Mean Platelet Volume 10.5 fl (7.4-10.4); Platelet Count Result 280 k/mm3 (150-375); Red Blood Count 4.38 M/mm3 (4.2-5.4); Red Cell Distribution Width 12.9 % (11.5-14.5); White Blood Count 8.9 K/mm3 (4.5-10.0)
[2020-09-09 05:05] LABS: INR 0.9; Prothrombin Time 12.9 Seconds (11.1-14.7)
[2020-09-09 05:06] LABS: Partial Thromboplastin Time 34.4 SECONDS (22.3-36.8)
[2020-09-09 05:09] LABS: Anion Gap 4 mmol/L (8-16); Blood Urea Nitrogen 21 mg/dL (7-17); Calcium 9.1 mg/dL (8.4-10.2); Carbon Dioxide 30 mmol/L (22-30); Chloride 105 mmol/L (98-107); Estimated CRCL calculation 34 ml/min; Estimated Glomerular Filt Rate 60; Glucose 96 mg/dL (65-105); Potassium 4.3 mmol/L (3.4-5.0); Sodium 139 mmol/L (137-145)
--- NOTE | 2020-09-09 08:23 | WPDMODSED ---
Moderate Sedation Note-Pt Data Patient Data Diagnosis: acute coronary syndrome / non ST elevation [place] Present Complaint: no complaints Procedure to be performed/Plan: left heart catheterization Allergies Allergy/AdvReac Type Severity Reaction Status Date / Time rice Allergy Severe Swelling Verified 09/07/20 14:46 Home Medications Medication Instructions Recorded Confirmed Type Centrtriny Silver Women 1 tablet PO DAILY 01/03/20 09/06/20 History alendronate 70 mg PO WEEKLY 01/03/20 09/06/20 History aspirin 81 mg PO DAILY 01/03/20 09/06/20 History atenolol 50 mg PO DAILY 01/03/20 09/06/20 History calcium carbonate [Calcium 500] 500 mg PO DAILY 01/03/20 09/06/20 History echinacea 760 mg PO DAILY 01/03/20 09/06/20 History losartan 50 mg PO DAILY 01/03/20 09/06/20 History omega 5-cin-lkr-fish oil [Fish Oil] 1 cap PO DAILY 01/03/20 09/06/20 History protein [Boost High Protein] 1 ea PO DAILY 01/03/20 09/06/20 History cholecalciferol (vitamin D3) 25 mcg PO DAILY 09/06/20 09/06/20 History [Vitamin D3] pantoprazole 40 mg PO DAILY 09/06/20 09/06/20 History vitamin B complex [B 1 tablet PO DAILY 09/06/20 09/06/20 History Complex-Vitamin B12] vitamin E 400 unit PO DAILY 09/06/20 09/06/20 History Current Medications: Active Medications Aspirin (Aspirin 81 Mg Chewable Tablet) 81 mg PO DAILY@0800 [facility] Last Admin: 09/08/20 10:36 Dose: 81 mg Documented by: Atenolol (Atenolol 50 Mg Tablet) 50 mg PO DAILY [facility] Last Admin: 09/08/20 10:32 Dose: 50 mg Documented by: Atorvastatin Calcium (Atorvastatin 40 Mg Tablet) 40 mg PO DAILY [facility] Last Admin: 09/08/20 14:01 Dose: 40 mg Documented by: Calcium Carbonate (Calcium Carbonate (Oscal) 500 Mg Tablet) 500 mg PO DAILY [facility] Last Admin: 09/08/20 10:32 Dose: 500 mg Documented by: Enoxaparin Sodium (Enoxaparin 60 Mg/0.6 Ml Syringe) 55 mg SUB-Q Q12H [facility] Last Admin: 09/08/20 19:04 Dose: Not Given Documented by: Fish Oil ([place] 3 Polyunsat Fatty Acids 1 Gm Cap) 1 gm PO DAILY [facility] Last Admin: 09/08/20 10:32 Dose: 1 gm Documented by: Losartan Potassium (Losartan Potassium 50 Mg Tablet) 50 mg PO DAILY [facility] Last Admin: 09/08/20 10:33 Dose: 50 mg Documented by: Multivitamins/Minerals (Multivitamins /C Lutein (Centrum Silver) Tablet *Bkc) 1 tab PO QAM [facility] Last Admin: 09/08/20 10:33 Dose: 1 tab Documented by: Nitroglycerin (Nitroglycerin Sl 0.4 Mg Tablet) 0.4 mg SUBLINGUAL Q5MIN PRN PRN Reason: Chest Pain Pantoprazole Sodium (Pantoprazole 40 Mg Tablet) 40 mg PO DAILY [facility] Last Admin: 09/08/20 10:33 Dose: 40 mg Documented by: Vitamin B Complex (Vitamin B Complex Capsule) 1 cap PO DAILY [facility] Last Admin: 09/08/20 10:33 Dose: 1 cap Documented by: Vitamin D (Cholecalciferol 1,000 Units Tablet) 1,000 units PO DAILY [facility] Last Admin: 09/08/20 10:33 Dose: 1,000 units Documented by: Vitamin E (Vitamin E 400 Unit Capsule) 400 unit PO DAILY [facility] Last Admin: 09/08/20 10:32 Dose: 400 unit Documented by: Sedation/Anesthesia: No previous sedation/anesthesia problems (including family history). [facility] Past Medical History Medical History (Updated 09/07/20 @ 20:47 by Jesus Marie MD) Essential hypertension GERD (gastroesophageal reflux disease) Hemorrhoids Herpes zoster dermatitis 1993 Migraines Overflow stress urinary incontinence in female Post-menopausal osteoporosis Surgical History Surgical History (Updated 09/06/20 @ 23:30 by Fatimah Hernández DO) History of appendectomy History of right knee surgery 1971 Hx of tonsillectomy S/P foot surgery, left Growth removed from left foot 1990 Family History Family History Father Acute myocardial infarction Sibling Heart disease Acute myocardial infarction Mother Hemochromatosis Cerebrovascular accident Leukemia Social History Social History (Updated 09/07/20 @ 03:32 by Fatimah Hernández DO) Social History: She lives in 89-year-old
[2020-09-09] MEDS: ASPIRIN 81 MG CHEWABLE TABLET PO (09:17)
--- NOTE | 2020-09-09 10:48 | ECG_ITS ---
Measurements Intervals [place] Rate: 65 P: 59 IN: 165 QRS: 55 QRSD: 82 T: 99 QT: 427 QTc: 445 Interpretive Statements SINUS RHYTHM T WAVE ABNORMALITY IN ANTERIOR LEADS- CONSIDER ISCHEMIA BASELINE ARTIFACT- I, III, AVL, AVF ABNORMAL ECG Electronically Signed On 09-09-2020 14:19:10 [employer]PUTER HARDWARE DEVELOPER by Beau Dykes D.O.
--- NOTE | 2020-09-09 10:54 | WPDCARDPROC ---
Cardiac Cath Procedure Note Date of procedure:: 09/09/20 Performing physician:: Kevin Sifuentes MD Indication:: acute coronary syndrome / non ST elevation [place] Brief clinical history:: this is an 80-year-old lady with no previous history of coronary artery disease who entered the hospital yesterday with chest pain had a moderate troponin rise and developed ECG changes compatible with anterior non ST elevation OR. Procedure Procedure performed:: Left ventriculography coronary angiography percutaneous revascularization (VIV) to proximal LAD Sedation/Medication given:: fentanyl 25 mg Versed 2 mg case start time 9:55 a.m. case end time 10:45 a.m. sedation provided by Chacha Sanchez RN, trained observer Access site:: right femoral artery Estimated blood loss:: 20 cc Procedure note:: patient brought cardiac catheterization lab in the postabsorptive state the right femoral triangle was prepared in the usual fashion. Anesthesia was provided with 1% lidocaine infiltrated locally after this the using the modified Seldinger technique the right femoral artery was punctured and a 5 [place] vascular sheath was placed. Left ventriculography and left-sided hemodynamics were then studied using a 5 [place] angled pigtail catheter. Following this a 5 [place] JR4 catheter was used to engage inject the right coronary artery. After this a 5 [place] FL4 catheter was used to engage inject the left coronary artery. Following this the cine angiograms were then reviewed and after this PCI of the LAD was recommended and carried out as detailed below. Prior to PCI the 5 [place] sheath was changed over guidewire for 6 [place]ian sheath. Patient then received Brilinta 180 mg orally and was systemically anticoagulated with Angiomax for the intervention. Following intervention the sheath was sutured into position to was taken to the holding area for manual recovery there was no sign of any procedural complication the procedure was well tolerated. Mild residual chest pressure upon leaving the cardiac catheterization lab. Findings:: Hemodynamics: The central aortic pressure was 102/36 left ventricle 102/0 end-diastolic of 4 no gradient across the aortic valve upon pullback left ventricle: The LV is normal in size the apical segment is hypodynamic the remainder of the LV contracts normally the global ejection fraction is 65%. The left main coronary artery is moderate caliber and widely patent. The left anterior descending is a moderate caliber artery which has a superior takeoff from the left main with a 90 degree angle and the takeoff. There is then a long area of complex high-grade disease in the proximal LAD with a 95% proximal stenosis and then diffuse 70-80% stenosis in the 1st 1/4 of the artery. This culminates in a 70- 80% stenosis at the end of this described area. The circumflex is a large caliber artery appears to be dominant to the posterior circulation circumflex is mildly disease with luminal irregularities but no flow-limiting lesions are identified. The right coronary artery is small to medium in caliber non dominant and free of significant disease intervention: The left main coronary artery was engaged with several guiding catheters ultimately I was able to perform the intervention using a FL 3.0 guiding catheter which had the necessary upward angle at the end of the catheter to allow the LAD to be intervened upon. The air it lad was then wired using a 0.014 BMW coronary guiding wire. The lesion was pre-dilated using a 2.5 x 30 mm emerge balloon at nominal pressures. The distal area of the disease was then treated using a 2.5 x 18 mm Orsiro drug-eluting stent with a nice anatomical result. This was then treated proximally using a 3.0 x 26 mm Orsiro drug-eluting stent overlapping the 1st device into the proximal area of the vessel. The proximal part of the artery and overlapping segment were then balloon dilated using 3.5 x 12 mm noncom
--- NOTE | 2020-09-09 11:00 | SUR.PHASEII ---
BEGIN PHASE II RECOVERY. RETURNS TO HEALTH EDUCATION AIDE 5 S/P [facility] W/ PCI W/ DR. CHAMPION. RECEIVED STENTS TO PROX AND MID LAD. 6FR SHEATH REMAINS SUTURED INTACT R. GROIN. SITE WITHOUT BLEEDING OR HEMATOMA. GUAZE DRESSING C/D/I. ANGIOMAX GTT CONTINUES AT 19.8ML/HR VIA PUMP ALONG W/ IVF'S ORDERED. ORIENTED TO ROOM AND PLAN OF CARE, BEDREST AND ACTIVITY RESTRICTIONS POST [facility]. DROWSY. VSS. LEG IMMOBILIZER APPLIED TO R. LEG TO PREVENT BENDING AND DISRUPTION OF R. GROIN SHEATH AND SITE. VSS. WILL CONTINUE TO MONITOR.
--- NOTE | 2020-09-09 11:03 | PM.PNCARD ---
Progress Note: A&P Additional Plan severe single-vessel coronary disease with high-grade proximal LAD stenosis status post successful somewhat challenging PCI as described in the procedure note. Patient was started on Brilinta for dual anti-platelet therapy. She was also started on rosuvastatin. She has been on Atenolol l and losartan at home and these will be continued. Kevin Sifuentes MD [facility] Subjective Date/time seen: date of service: 09/09/2020 Interval history: follow-up note in this 80-year-old lady with: Acute coronary syndrome / non ST elevation [place] status post successful revascularization of the proximal LAD is dictated in the procedure note. Patient received 2 drug-eluting stents in overlapping fashion to treat a complex high-grade proximal area of disease in the LAD. Angulated takeoff the LAD off the left main made guiding catheter Selection somewhat challenging. Exam Const: General: comfortable and no acute distress Other: Able to lie flat HENMT: General nose exam: Normal nares present and no epistaxis Mouth: Yes moist mucous membranes Eyes: Sclera: sclerae normal Pupils: Equal, round and reactive pupils present Neck: Neck: supple and no JVD Carotids: no bruits Resp: Auscultation: clear to auscultation bilaterally and lung sounds not diminished Other: No chest wall tenderness Cardio: Rate: regular rate Rhythm: regular rhythm Heart sounds: no gallops, no murmurs and no rubs GI: Auscultation: normal bowel sounds Skin: General skin exam: normal color, rashes and/or lesions noted and no erythema Other: Warm Neuro: Cranial nerves: Yes Equal, round and reactive pupils present Speech: normal speech Other: No obvious focal deficit or facial asymmetry Extrem: General: no edema Other: Normal capillary refills Intact distal pulses. Objective Data Vital Signs Vital Signs: Vital Signs - 24 hr 09/08/20 12:00 09/08/20 14:00 09/08/20 15:52 Temperature 36.7 C 36.6 C Pulse Rate 77 69 68 Respiratory Rate 16 16 Blood Pressure 110/65 107/52 L Pulse Oximetry 98 98 09/08/20 16:00 09/08/20 18:00 09/08/20 19:54 Temperature 36.2 C L Pulse Rate 65 76 79 Respiratory Rate 18 Blood Pressure 145/62 H Pulse Oximetry 100 09/08/20 20:00 09/08/20 22:00 09/08/20 23:23 Temperature Pulse Rate 75 58 L 57 L Respiratory Rate 18 18 Blood Pressure Pulse Oximetry 100 100 09/09/20 00:00 09/09/20 02:00 09/09/20 04:00 Temperature 36.4 C L 36.6 C Pulse Rate 71 59 L 68 Respiratory Rate 18 18 Blood Pressure 116/51 L 122/57 L Pulse Oximetry 96 97 09/09/20 05:45 09/09/20 08:00 Temperature 35.6 C L Pulse Rate 78 76 Respiratory Rate 16 Blood Pressure 110/65 Pulse Oximetry 99 Intake/Output Intake/Output: Intake & Output 09/06/20 09/07/20 09/08/20 09/09/20 23:59 23:59 23:59 23:59 Intake Total 0 1040 Output Total 1500 1450 1300 Balance -1500 -410 -1300 Meds/Results Medications: Active Medications Generic Name Dose Route Start Last Admin Trade Name Freq PRN Reason Stop Dose Admin Aspirin 81 mg 09/07/20 08:00 09/09/20 09:17 Aspirin 81 Mg Chewable Tablet PO 81 mg DAILY@0800 TAMARA Administration Atenolol 50 mg 09/07/20 09:00 09/08/20 10:32 Atenolol 50 Mg Tablet PO 50 mg DAILY TAMARA Administration Atorvastatin Calcium 40 mg 09/07/20 09:00 09/08/20 14:01 Atorvastatin 40 Mg Tablet PO 40 mg DAILY TAMARA Administration Calcium Carbonate 500 mg 09/07/20 09:00 09/08/20 10:32 Calcium Carbonate (Oscal) 500 Mg Tablet PO 500 mg DAILY TAMARA Administration Fish Oil 1 gm 09/07/20 09:00 09/08/20 10:32 [place] 3 Polyunsat Fatty Acids 1 Gm Cap PO 1 gm DAILY TAMARA Administration Sodium Chloride 1,000 mls @ 125 mls/hr 09/09/20 10:48 Normal Saline Iv IV CONT 09/09/20 18:47 .Q8H ONE Losartan Potassium 50 mg 09/07/20 09:00 09/08/20 10:33 Losartan Potassium 50 Mg Tablet PO 50 mg DAILY TAMARA Administrat
--- NOTE | 2020-09-09 11:45 | SUR.PHASEII ---
1ST BAG OF ANGIOMAX COMPLETE; 2ND BAG OF ANGIOMAX STARTED AT 19.8ML/HR VIA PUMP.
--- NOTE | 2020-09-09 12:55 | PC.NURSE ---
4613- To cardiac laborer mine for procedure via stretcher accompanied by RN's
--- NOTE | 2020-09-09 14:35 | SUR.PHASEII ---
2ND BAG OF ANGIOMAX COMPLETE. HAS HAD SCANT BLOODY OOZE IN R. GROIN CREASE. HAVE PLACED GUAZE WICK IN CREASE TO ABSORB SMALL AMOUNTS. SITE REMAINS SOFT. NO NEW CHANGES. VSS. POST PCI EKG COMPLETED AT 1413. HAS BEEN UNABLE TO VOID ON BEDPAN THUS FAR; WILL TRY AGAIN. MAY HAVE SHEATH PULLED 2 HOURS AFTER ANGIOMAX COMPLETE, OR 1635. REVIEWED BEDREST AND ACTIVITY RESTRICTIONS W/ PT. VOICED UNDERSTANDING. WILL CONTINUE TO MONITOR.
--- NOTE | 2020-09-09 14:54 | PM.IMPN ---
Progress Note: A&P Assessment and Plan (1) Non-ST elevated myocardial infarction (non-STEMI): Code(s): I21.4 - Non-ST elevation (NSTEMI) myocardial infarction Status: Acute (2) Essential hypertension: Code(s): I10 - Essential (primary) hypertension Status: Acute (3) Hyperlipidemia: Code(s): E78.5 - Hyperlipidemia, unspecified Status: Acute (4) Confusion: Code(s): R41.0 - Disorientation, unspecified Status: Acute (5) DVT prophylaxis: Code(s): Z29.9 - Encounter for prophylactic measures, unspecified Status: Acute Assessment and Plan: She was on Lovenox. Change to SCDs. Additional Plan 09/06/20:: Patient presented with chest pain and labs demonstrated evidence of non STEMI. Patient is not having any further chest pain. She received 325 mg of aspirin and 1 dose of therapeutic Lovenox. Cardiology was consulted. Patient has been admitted to IMU and is being monitored on telemetry. Serial cardiac enzymes have demonstrated significant troponin elevation. Patient's home angiotensin receptor tata and beta-tata were continued. The patient's blood pressure has been intermittently outside of the goal range since admission. P.r.n. nitroglycerin been ordered. 09/07/20:: Mey is chest pain free. She is worried about her . EKG repeated today showing T wave changes in the anteriolateral leads. EKG reviewed and these are new changes with inverted T waves now. Trop peaked at 4.4. TG 215. TC 234. LDL 175 and HDL 27. Lipitor started. Appreciate cardiology input. LHC planned for Wednesday. Lovenox continued 09/08/20:: Patient appears to be mildly confused after waking up from nap and now seems flustered. No focal findings so will monitor for now. Plan for LHC in the morning. NPO after midnight. 09/29/20:: Patient underwent LHC earlier today and had 2 LAD stents placed for a complex high-grade stenosis in the proximal LAD. She has tolerated the procedure well. Will continue the ASA, Brilinta, statin (will stop Lipitor and contineu Crestor), and Atenolol. Add SCDs. BP remainis well controlled. She was mildly confused yesterday afternoon as well and suspect she has mild owning. No focal findings but consider CT brain if she develops focal findings. Out of bed and walk in halls when okay with Cardiology. Subjective Date/time seen: 09/09/20 14:54 Interval history: Date of service 09/09 80yo female with HTN here for CP and found to have NSTEMI. Mey had LHC earlier today. She feels well. No CP or SOB. No groin or back pain. She is mildly confused currently. RN states patient also had urine retention requiring Perrin. Patient did sit up in bed prior to being allowed to do so and pressure had to be held longer per RN. Exam Narrative: Exam Narrative: AF 97.0 127/76 88 22 100% ra Gen - NARD lying flat in bed Chest - CTA bilaterally, nml RR CV - RRR S1/S2 Abd - Soft, NT/ND, Positive BS. Right groin with small hematoma. 2+ femoral pulse. Ext - No pedal edema Psych - Nml mood and affect. Awake and alert but mildly confused. pleasant and cooperative Skin - Warm and dry Objective Data Vital Signs Vital Signs: Vital Signs - 24 hr 09/08/20 15:52 09/08/20 16:00 09/08/20 18:00 Temperature 98 F Pulse Rate 68 65 76 Respiratory Rate 16 Blood Pressure 107/52 L Pulse Oximetry 98 09/08/20 19:54 09/08/20 20:00 09/08/20 22:00 Temperature 97.2 F L Pulse Rate 79 75 58 L Respiratory Rate 18 18 Blood Pressure 145/62 H Pulse Oximetry 100 100 09/08/20 23:23 09/09/20 00:00 09/09/20 02:00 Temperature 97.5 F L Pulse Rate 57 L 71 59 L Respiratory Rate 18 18 Blood Pressure 116/51 L Pulse Oximetry 100 96 09/09/20 04:00 09/09/20 05:45 09/09/20 08:00 Temperature 98 F 96.1 F L Pulse Rate 68 78 76 Respiratory Rate 18 16 Blood Pressure 122/57 L 110/65 Pulse Oximetry 97 99 09/09/20 11:10 09/09/20 11:25 02
--- NOTE | 2020-09-09 16:15 | SUR.PHASEII ---
FOUND PT. ATTEMPTING TO SIT UP IN BED, DISORIENTED, AGITATED, FORGETFUL AT 1600. ATTEMPTED TO REORIENT AND REMIND WHY NOT ALLOWED TO SIT UP DUE TO SHEATH INTACT R. GROIN SITE. R. GROIN SITE WITHOUT NEW BLEEDING, BUT SUSPICIOUS FOR DEVELOPING HEMATOMA. DR. CHAMPION NOTIFIED OF PT'S ACTION AND STATUS OF R. GROIN SITE. PT. REPORTS NO PAIN IN ABDOMEN, FLANK, OR BACK. VS REMAIN STABLE. PER DR. CHAMPION, CONTINUE TO MONITOR AND MAY NEED TO HOLD ADDITIONAL PRESSURE TO SITE WHEN SHEATH REMOVED TO ACHIEVE HEMOSTASIS.
--- NOTE | 2020-09-09 16:47 | SUR.PHASEII ---
6FR SHEATH PULL FROM R. FEM. ARTERY PER PROTOCOL BY THIS RN. FIRM, STEADY MANUAL PRESSURE HELD TO SITE TO ACHIEVE HEMOSTASIS. SEE DOCUMENTATION.
--- NOTE | 2020-09-09 17:22 | SUR.PHASEII ---
INITIAL HEMOSTASIS ACHIVED TO R. GROIN PUNCTURE SITE AFTER 35 MINUTE PRESSURE HOLD. MONITORING CLOSELY.
--- NOTE | 2020-09-09 17:25 | SUR.PHASEII ---
NOTED HEMATOMA DEVELOPING LATERAL TO PUNCTURE SITE. SMALL, SOFT, BECOMING SL. FIRM. MANUAL PRESSURE HELD TO SITE BY AYESHA Corea RN TO PRESS OUT HEMATOMA. VSS.
--- NOTE | 2020-09-09 17:35 | SUR.PHASEII ---
CONTINUED MANUAL PRESSURE BEING HELD TO R. GROIN HEMATOMA BY NITA KIDD TO INSURE HEMOSTASIS. VSS.
--- NOTE | 2020-09-09 17:50 | SUR.PHASEII ---
HEMOSTASIS ACHIEVED TO R. GROIN PUNCTURE SITE. AREA WITHOUT HEMATOMA; SOFT, NONTENDER. NO BLEEDING NOTED. MILD BRUISING NOTED LATERAL TO PUNCTURE SITE. SITE DRESSED W/ STAT SEAL AND TEGADERM. VSS. IMMOBILIZER REMAIN ON R. LEG. REVIEWED WITH PT. IMPROTANCE OF CONTINUED BEDREST W/ HEAD ON PILLOW AND KEEPING R. LEG STRAIGHT. VOICED UNDERSTANDING. WILL CONTINUE TO MONITOR. BEDREST X 6 HOURS MORE UNTIL 2350 POST HEMOSTASIS.
--- NOTE | 2020-09-09 18:35 | SUR.PHASEII ---
R. GROIN SITE REMAINS WITHOUT HEMATOMA OR BLEEDING. REPORT CALLED TO FATOUMATA ORO RN IN IMU. DR. STEVENS JUST HERE AT 1825 TO SEE PT; UPDATED ON ALL EVENTS. PT. TO RETURN TO IMU 206.2 SOON.
--- NOTE | 2020-09-09 19:10 | SUR.PHASEII ---
END PHASE II RECOVERY. R. GROIN SITE REMAINS STABLE. STAT SEAL AND TEGADERM DRESSING REMAIN C/D/I. NO HEMATOMA OR BLEEDING NOTED. SITE SOFT, NONTENDER. PT. DENIES ANY PAIN TO R. GROIN, R. FLANK, BACK OR ABDOMEN. NO BRUIT NOTED WHEN R. GROIN SITE ASCULTATED. VSS. IVF'S INFUSING ORDERED. ISLAS DRAINING CLEAR YELLOW URINE. RETURNED TO IMU 206.2 ON TELE MONITOR VIA BED. BEDREST UNTIL 2350. BEDSIDE UPDATES AND GROIN CHECK DONE W/ FATOUMATA Fuentes RN AND FELIX MORENO.
[2020-09-09] MEDS: TICAGRELOR 90 MG TABLET PO (20:11)
[2020-09-09] MEDS: PANTOPRAZOLE 40 MG TABLET PO (20:11)
[2020-09-09] MEDS: atenoloL 50 MG TABLET PO (20:11)
[2020-09-09] MEDS: LOSARTAN POTASSIUM 50 MG TABLET PO (20:12)
--- NOTE | 2020-09-09 20:57 | PC.NURSE ---
pt. returned from cardiac computer lab aide at 1910. Recieved report from Macrina cowan.
[2020-09-10] VITALS (13 sets, daily range): BP systolic 91–169; BP diastolic 58–75; PULSE 72–90; RESP 16–18; TEMP 36–36.6; O2SAT 98–100
--- NOTE | 2020-09-10 05:11 | ECG_ITS ---
Measurements Intervals [place] Rate: 80 P: 51 MN: 149 QRS: 50 QRSD: 81 T: 82 QT: 373 QTc: 432 Interpretive Statements SINUS RHYTHM T WAVE ABNORMALITY IN ANTERIOR LEADS- CONSIDER ISCHEMIA ABNORMAL ECG Electronically Signed On 09-10-2020 11:57:10 BAR FINISH OPERATOR by Beau Dykes D.O.
[2020-09-10 05:15] LABS: Hematocrit 39.6 % (37.0-47.0); Mean Corpuscular HGB Conc 32.8 g/dl (32-36); Mean Corpuscular Hemoglobin 29.8 pg (26-34); Mean Corpuscular Volume 90.8 fl (80-100); Mean Platelet Volume 10.7 fl (7.4-10.4); Platelet Count Result 288 k/mm3 (150-375); Red Blood Count 4.36 M/mm3 (4.2-5.4); Red Cell Distribution Width 12.9 % (11.5-14.5); White Blood Count 12.9 K/mm3 (4.5-10.0)
[2020-09-10 05:28] LABS: Anion Gap 5 mmol/L (8-16); Blood Urea Nitrogen 15 mg/dL (7-17); Calcium 8.9 mg/dL (8.4-10.2); Carbon Dioxide 27 mmol/L (22-30); Chloride 106 mmol/L (98-107); Estimated CRCL calculation 38 ml/min; Estimated Glomerular Filt Rate > 60; Glucose 113 mg/dL (65-105); Potassium 3.6 mmol/L (3.4-5.0); Sodium 138 mmol/L (137-145)
[2020-09-10 06:35] LABS: Folic Acid > 20.0 ng/mL (2.76->20)
[2020-09-10] MEDS: OMEGA 3 POLYUNSAT FATTY ACIDS 1 GM CAP PO (08:46)
[2020-09-10] MEDS: CHOLECALCIFEROL 1,000 UNITS TABLET 1000 UNITS PO (08:46)
[2020-09-10] MEDS: VITAMIN B COMPLEX CAPSULE 1 CAP PO (08:46)
[2020-09-10] MEDS: MULTIVITAMINS /C LUTEIN (CENTRUM SILVER) TABLET *BKC 1 TAB PO (08:46)
[2020-09-10] MEDS: VITAMIN E 400 UNIT CAPSULE PO (08:46)
[2020-09-10] MEDS: TICAGRELOR 90 MG TABLET PO (08:46)
[2020-09-10] MEDS: PANTOPRAZOLE 40 MG TABLET PO (08:46)
[2020-09-10] MEDS: ASPIRIN 81 MG CHEWABLE TABLET PO (08:46)
[2020-09-10] MEDS: atenoloL 50 MG TABLET PO (08:46)
[2020-09-10] MEDS: LOSARTAN POTASSIUM 50 MG TABLET PO (08:46)
[2020-09-10] MEDS: ROSUVASTATIN 10 MG TABLET PO (08:46)
[2020-09-10] MEDS: CALCIUM CARBONATE (OSCAL) 500 MG TABLET PO (08:46)
--- NOTE | 2020-09-10 14:35 | PM.PNCARD ---
Progress Note: A&P Assessment and Plan (1) Non-ST elevated myocardial infarction (non-STEMI): Code(s): I21.4 - Non-ST elevation (NSTEMI) myocardial infarction Status: Acute Assessment and Plan: Status post 2 drug-eluting stents to the Left anterior descending on Wednesday, doing well with no chest pain, arrhythmias or CHF. Up and ambulate. Home today per hospitalist. Continue dual anti-platelet therapy for 1 year, beta tata and ARB Increase rosuvastatin to higher dose in view of her recent ACS, 20 mg daily. Has an appointment in our office next week. (2) Essential hypertension: Code(s): I10 - Essential (primary) hypertension Status: Acute Assessment and Plan: BP generally at goal, little bit low this morning. (3) Confusion: Code(s): R41.0 - Disorientation, unspecified Status: Acute Assessment and Plan: Confused particularly at night. Subjective Date/time seen: 09/10/20 14:35 Interval history: Follow-up for: Acute coronary syndrome / non ST elevation VA status post successful revascularization of the proximal LAD is dictated in the procedure note. Patient received 2 drug-eluting stents in overlapping fashion to treat a complex high-grade proximal area of disease in the LAD on Wednesday09/09/20. Angulated takeoff the LAD off the left main made guiding catheter Selection somewhat challenging. Apical hypokinesis with overall good left ventricular function. Date of service 09/10/2020: Patient doing well but has confusion particularly at night and has a sitter. Denies any shortness of breath or chest pain. Some trouble with constipation. Review of Systems Constitutional: Constitutional: Reports fatigue ENT: Denies epistaxis Cardiovascular: Cardiovascular: Denies chest pain, Denies pedal edema, Denies leg edema and Denies palpitations Respiratory: Respiratory: Denies cough, Denies dyspnea and Denies dyspnea on exertion Gastrointestinal: Gastrointestinal: Denies abdominal pain and Reports constipation Genitourinary: Genitourinary: Denies hematuria Musculoskeletal: Musculoskeletal: Reports no additional musculoskeletal complaints Integumentary/Breasts: Skin/Breast: Denies rash Neurologic: Reports confusion Psychiatric: Psychiatric: Reports confusion Exam Narrative: Exam Narrative: Pleasant frail elderly lady in no distress Const: General: comfortable and no acute distress HENMT: General nose exam: no epistaxis Mouth: Yes moist mucous membranes Eyes: EOM: EOMs intact bilaterally Neck: Neck: supple Resp: Effort & Inspection: normal respiratory effort Auscultation: clear to auscultation bilaterally Cardio: Rate: regular rate Rhythm: regular rhythm Heart sounds: no murmurs GI: Inspection: non-distended GI Palp: Yes Soft to palpation and No Tenderness to palpation present (GI) Urinary Catheter: Urinary Catheter: patent and draining and urine clear Skin: General skin exam: normal color Other: Cardiac catheterization site free of ecchymosis or hematoma Neuro: Cognition (Neuro): abnormal cognition Speech: normal speech Motor exam (neuro): Normal motor muscle tone present throughout Other: Oriented to [facility], here for heart attack, unsure of the day or date. Extrem: General: no edema and no pedal edema Psych: Affect: normal affect Objective Data Vital Signs Vital Signs: Vital Signs - 24 hr 09/09/20 14:55 09/09/20 15:55 09/09/20 16:45 Temperature Pulse Rate 79 73 80 Respiratory Rate 18 18 20 Blood Pressure 132/72 141/66 H 132/85 Pulse Oximetry 100 100 99 09/09/20 16:50 09/09/20 17:00 09/09/20 17:10 Temperature Pulse Rate 81 85 85 Respiratory Rate 15 23 H 22 H Blood Pressure 158/78 H 147/73 H 131/81 Pulse Oximetry 97 97 97 09/09/20 17:20 09/09/20 17:30 09/09/20 17:35 Temperature Pulse Rate 85 92 88 Respiratory R
--- NOTE | 2020-09-10 15:40 | PM.DS ---
DS: Admitting Diagnosis Admitting Diagnosis Admitting Diagnosis: Chest pain DS: Discharge Diagnosis Discharge Diagnosis (1) Non-ST elevated myocardial infarction (non-STEMI): Code(s): I21.4 - Non-ST elevation (NSTEMI) myocardial infarction Status: Acute Assessment and Plan: Status post cardiac catheterization with 2 drug-eluting stent placement patient will be discharged on dual antiplatelet statin follow-up with PCP (2) Essential hypertension: Code(s): I10 - Essential (primary) hypertension Status: Acute Assessment and Plan: Continue home medication (3) Hyperlipidemia: Code(s): E78.5 - Hyperlipidemia, unspecified Status: Acute Assessment and Plan: Statin follow-up with PCP DS: Summary Hospital Course Hospital Course: Patient presented to the hospital with chest pain was found to have elevated troponin abnormal lipid panel cardiology was consulted cardiac catheterization was done patient had 2 drug-eluting stent placed successfully without complication patient will be discharged on dual antiplatelet follow-up with cardiology in 1-2 weeks patient had mildly abnormal LFT repeat CMP in 2-3 weeks Time Spent with Patient Time attestation: Total time spent providing and/or coordinating discharge services: Exam Narrative: Exam Narrative: Short physical exam DS: Data Data Completed and Pending Labs on day of discharge: Labs from last 24 hours 09/10/20 09/10/20 09/10/20 04:37 04:37 04:37 WBC 12.9 H RBC 4.36 Hgb 13.0 Hct 39.6 MCV 90.8 MCH 29.8 MCHC 32.8 RDW 12.9 Plt Count 288 MPV 10.7 H Sodium 138 Potassium 3.6 Chloride 106 Carbon Dioxide 27 Anion Gap 5 L BUN 15 D Creatinine 0.80 Estim Creat Clear Calc 38 Estimated GFR > 60 Glucose 113 H Calcium 8.9 Vitamin B12 790.0 Folate > 20.0 H TSH (Reflex) 3.410 Discharge Plan Discharge Attending physician on discharge: Bob Campos M.A. Consulting providers: Mackenzie Sanchez Discharging Clinician: Bob Campos M.A. Patient Disposition: Home, Self-Care Activity: as tolerated Diet: as tolerated Discharge Instructions: Follow up at [facility] Cardiology 9 a.m TuSeptember [address] Sifuentes's nurse practitioner, Dayan Nolasco, at [facility] Cardiology office. Please arrive 15 minutes early for registration. [facility]: [phone]. Call if any questions. Address: [address], [address], [place] [address]. Our office is on the ground floor next to the gift shop of the doctor's office building. Enter through the main entrance for COVID screening. Insert Take it easy for the next 2 weeks. Regular activity around the house is okay but no long walks or exercise. No lifting more than 15 lb for 2 weeks The aspirin and Brilinta are essential to prevent blood clots from forming on your stent. Do not stop them without permission from the Cardiology group. Stopping them prematurely can lead to blood clot on the stent and heart attack. Heart healthy diet. In general, we recommend a reduction of red meat intake and salt intake, and increase in vegetables. Check daily weights in the morning, after voiding. If you gain more than 3 lb, call our office. For a COVID vaccine, contact: [email or web address] Patient Instructions: Antibiotic Form, Heart Attack (DC), Left Heart Catheterization (DC) Stand Alone Forms: General Discharge Information Follow-up/Referrals: Mackenzie Sanchez DO [Physician] - Can Thomas MD [Primary Care Provider] - Discharge Medications: New Brilinta 90 mg Tablet 90 mg PO Q12HR Qty: 60 RF: 11 rosuvastatin [Crestor] 10 mg Tablet 20 mg PO DAILY Qty: 30 RF: 5 Continued losartan 50 mg tablet 50 mg PO DAILY RF: 0 alendronate 70 mg tablet 70 mg PO WEEKLY RF: 0 calcium carbonate [Calcium 500] 500 mg calcium
== END 2020-09-10 17:05 | disposition home or self-care (01) | DRG 247 ==
LOC: ANHED 19:01 → ANHIMU 20:31
PROVIDERS: Emergency Medicine; Internal Medicine Cardiovascular Disease; Specialist; Admitting Provider Internal Medicine; Emergency Provider Emergency Medicine; PCP Family Medicine; Visit Provider Internal Medicine
PROC: 4A023N7 Measurement of Cardiac Sampling and Pressure, Left Heart, Percutaneous Approach (ICD-10-PCS; CPT 93452; principal; 2020-09-09 10:00)
PROC: 027035Z Dilation of Coronary Artery, One Artery with Two Drug-eluting Intraluminal Devices, Percutaneous Approach (ICD-10-PCS; 2020-09-09 10:00)
DX: I21.4 Non-ST elevation (NSTEMI) myocardial infarction (principal); I25.10 Atherosclerotic heart disease of native coronary artery without angina pectoris; I10 Essential (primary) hypertension; E78.5 Hyperlipidemia, unspecified; K21.9 Gastro-esophageal reflux disease without esophagitis; N39.490 Overflow incontinence; N39.3 Stress incontinence (female) (male); M81.0 Age-related osteoporosis without current pathological fracture; R41.0 Disorientation, unspecified; Z79.82 Long term (current) use of aspirin; Z79.899 Other long term (current) drug therapy
CPT/HCPCS: 36415; 71046; 80048; 80061; 80076; 82607; 82746; 84443; 84484; 85025; 85027; 85610; 85730; 93005; 93458; 96372; 99291; A9270; C1725; C1769; C1874; C1887; C1894; C9600; G0378; J0461; J0583; J1644; J1650; J2250; J2370; J3010; J7040

== ENCOUNTER 2021-03-10 19:28 | Observation (INO) | payer MEDICARE, SELFPAY ==
--- NOTE | ~2021-03-10 | CT_ITS ---
EXAMINATION: CTA chest PE protocol DATE: 03/11/2021 00:02 INDICATION: Hemoptysis TECHNIQUE: Computed tomography (CT) pulmonary angiogram of the chest was performed with 100 mL Omnipa que-350 intravenous contrast. Additional 3D reconstructions utilizing coronal maximum intensity proje ction (MIP) were performed. Automated exposure control and iterative reconstruction technique were em ployed. The dose-length product was 155.41 mGy-cm. COMPARISON: None FINDINGS: Excellent contrast opacification of the pulmonary arteries. There is mild streak artifact from dense contrast in the superior vena cava and right atrium. Mild scattered respiratory motion artifact which does not significantly limit evaluation. No pulmonary embolism. Mild emphysema. Mild cylindrical bro nchiectasis and tree-in-bud opacities in the right middle lobe consistent with likely chronic or acut e on chronic infection. Chronic biapical pleural-parenchymal scarring. Additional pleural parenchymal scarring with architectural distortion in the right lower lobe. There is however also an approximate ly 2.5 cm region of groundglass opacity and central irregular septal line thickening more caudally at the right apex which could also be infectious, inflammatory or malignant in etiology such as broncho alveolar carcinoma. No pulmonary edema or pleural effusion. Heart size is normal. Thoracic aorta is n ormal in caliber with no dissection. Multinodular goiter. No pathologically enlarged thoracic lymphad enopathy. Cortical thinning of both kidneys. 1.4 cm left renal cyst. There is however suggestion of a 2.1 cm mass at the upper pole of the left kidney suspicious for renal cell carcinoma. Severe spondyl osis at the thoracolumbar junction with moderate spondylosis of the more cephalad thoracic spine. No suspicious lytic or blastic bone lesions. IMPRESSION: 1. Mild bronchiectasis and tree-in-bud opacities in the right middle lobe consistent with suggesting recurrent acute on chronic pneumonia. 2. Approximately 2.5 cm region of groundglass opacity with central irregular septal line thickening a t the left apex with differential including acute or chronic infection/inflammation or malignancy suc h as bronchoalveolar carcinoma. Recommend correlation with any prior outside imaging. Otherwise would recommend 2-3 month follow-up with consideration for biopsy should the lesion persist. 3. Mild emphysema. 4. Suspicion for a 2.1 cm mass at the upper pole the left kidney with differential including a protei naceous/hemorrhagic cyst. If patient would be a surgical candidate in the setting of renal cell carci noma would recommend further evaluation with pre and postcontrast CT or MRI. 5. Multinodular goiter. Reviewed, dictated and finalized at location A. IMPRESSION: 1. Mild bronchiectasis and tree-in-bud opacities in the right middle lobe consi stent with suggesting recurrent acute on chronic pneumonia. 2. Approximately 2.5 cm region of groundglass opacity with central irregular se ptal line thickening at the left apex with differential including acute or lunchroom monitor carrie infection/inflammation or malignancy such as bronchoalveolar carcinoma. Rec ommend correlation with any prior outside imaging. Otherwise would recommend 2- 3 month follow-up with consideration for biopsy should the lesion persist. 3. Mild emphysema. 4. Suspicion for a 2.1 cm mass at the upper pole the left kidney with different ial including a proteinaceous/hemorrhagic cyst. If patient would be a surgical candidate in the setting of renal cell carcinoma would recommend further evalua tion with pre and postcontrast CT or MRI. 5. Multinodular goiter.
--- NOTE | ~2021-03-10 | XR_ITS ---
EXAMINATION: XR chest 2V DATE: 03/10/2021 19:52 INDICATION: Hematemesis. TECHNIQUE: PA and lateral views of the chest were obtained. COMPARISON: Chest radiograph dated 09/06/2020 FINDINGS: Unchanged hyperexpansion of lungs with biapical pleural-parenchymal scarring, right greater than left . Also unchanged is mild anterior bibasilar atelectasis/scarring at the lingula and right middle lobe . No other airspace opacities, pulmonary edema, pleural effusion or pneumothorax. The cardiomediastin al silhouette is normal. Tortuous and atherosclerotic thoracic aorta. Moderate to severe lower thorac ic predominant spondylosis. Chronic mild anterior wedging of a midthoracic vertebral body. IMPRESSION: 1. No acute cardiopulmonary disease. Reviewed, dictated and finalized at location A.
[2021-03-10 19:30] VITALS: BP 173/74; PULSE 100; RESP 16; TEMP 36.8; O2SAT 100
[2021-03-10 20:24] LABS: Basophils Percent Auto 0.4 % (0.2-1.2); Eosinophils Absolute Auto 0.3 K/mm3 (0-0.3); Eosinophils Percent Auto 4.2 % (0-4.4); Hematocrit 35.6 % (37.0-47.0); Hemoglobin 11.6 g/dL (12.0-15.0); Immature Granulocyte Absolute 0.03 K/mm3 (0.00-0.031); Immature Granulocyte Percent A 0.4 % (0-0.5); Lymphocytes Absolute Auto 1.65 K/mm3 (0.9-3.2); Lymphocytes Percent Auto 22.2 % (18.3-44.2); Mean Corpuscular HGB Conc 32.6 g/dl (32-36); Mean Corpuscular Hemoglobin 29.4 pg (26-34); Mean Corpuscular Volume 90.1 fl (80-100); Mean Platelet Volume 9.3 fl (7.4-10.4); Monocytes Absolute Auto 0.8 K/mm3 (0.1-0.6); Monocytes Percent Auto 10.3 % (2.6-8.5); Neutrophils Absolute Auto 4.7 K/mm3 (1.3-6.7); Neutrophils Percent Auto 62.5 % (45.5-73.1); Platelet Count Result 271 k/mm3 (150-375); Red Blood Count 3.95 M/mm3 (4.2-5.4); Red Cell Distribution Width 13.6 % (11.5-14.5); White Blood Count 7.4 K/mm3 (4.5-10.0)
[2021-03-10 20:32] LABS: Anion Gap 10 mmol/L (8-16); Blood Urea Nitrogen 22 mg/dL (7-17); Calcium 9.7 mg/dL (8.4-10.2); Carbon Dioxide 26 mmol/L (22-30); Chloride 96 mmol/L (98-107); Estimated CRCL calculation 22 ml/min; Estimated Glomerular Filt Rate 36; Glucose 128 mg/dL (65-110); Potassium 3.6 mmol/L (3.4-5.0); Sodium 132 mmol/L (137-145)
[2021-03-10 20:34] LABS: INR 0.9; Partial Thromboplastin Time 28.1 SECONDS (22.3-36.8); Prothrombin Time 12.3 Seconds (11.1-14.7)
[2021-03-10 23:00] VITALS: BP 174/87; PULSE 82; RESP 22; O2SAT 99
[2021-03-10] MEDS: SODIUM CHLORIDE 0.9% IV 500 ML 999 ML IV CONT (23:41)
[2021-03-10] MEDS: PANTOPRAZOLE SODIUM IV 40 MG VIAL IV PUSH (23:41)
--- NOTE | 2021-03-10 23:43 | ED.GENADULT ---
HPI - General Adult General Chief complaint: Unspecified Stated complaint: spitting up blood Time Seen by Provider: 03/10/21 22:48 Source: patient Mode of arrival: ambulatory Limitations: no limitations History of Present Illness HPI narrative: This is an 80 year old female with history of CAD s/p stents who presents for evaluation of hemoptysis. Patient states 1 hour prior to arrival she started coughing up blood. She reports she has had worsening cough recently. She also states this started after she ate and she mentioned she threw up blood. She denies abdominal pain, epistaxis, nausea or melena. She denies fever, chills or dizziness. She takes aspirin and brillinta because she had stent placed in September 2020. Related Data Home Medications Medication Instructions Recorded Confirmed Centrum Silver Women 1 tablet PO DAILY 01/03/20 03/11/21 alendronate 70 mg PO WEEKLY 01/03/20 03/11/21 aspirin 81 mg PO DAILY 01/03/20 03/11/21 atenolol 50 mg PO DAILY 01/03/20 03/11/21 calcium carbonate [Calcium 500] 500 mg PO DAILY 01/03/20 03/11/21 echinacea 400 mg PO DAILY 01/03/20 03/11/21 losartan 50 mg PO DAILY 01/03/20 03/11/21 omega [id number] oil [Fish Oil] 1 cap PO DAILY 01/03/20 03/11/21 protein [Boost High Protein] 1 ea PO DAILY 01/03/20 03/11/21 cholecalciferol (vitamin D3) 25 mcg PO DAILY 09/06/20 03/11/21 [Vitamin D3] pantoprazole 40 mg PO DAILY 09/06/20 03/11/21 vitamin B complex [B 1 tablet PO DAILY 09/06/20 03/11/21 Complex-Vitamin B12] vitamin E 400 unit PO DAILY 09/06/20 03/11/21 Allergies Allergy/AdvReac Type Severity Reaction Status Date / Time rice Allergy Severe Swelling Verified 03/11/21 03:02 Review of Systems Review of Systems: All systems reviewed & are unremarkable except as noted in HPI and below PMFSH Past Medical History Medical History (Updated 03/11/21 @ 07:52 by Sona Cortes MD) Essential hypertension GERD (gastroesophageal reflux disease) Hemorrhoids Herpes zoster dermatitis 1993 Migraines Overflow stress urinary incontinence in female Post-menopausal osteoporosis Surgical History Surgical History (Updated 09/06/20 @ 23:30 by Fatimah Hernández DO) History of appendectomy History of right knee surgery 1971 Hx of tonsillectomy S/P foot surgery, left Growth removed from left foot 1990 Family History Family History Father Acute myocardial infarction Sibling Heart disease Acute myocardial infarction Mother Hemochromatosis Cerebrovascular accident Leukemia Social History Social History (Updated 09/07/20 @ 03:32 by Fatimah Hernández DO) Social History: She lives in 91-year-old who is moderate to severe dementia. She is primary caregiver. Her daughter lives next door. They have been for 31 years. She has 3 biologic children and 3 step children. Her children are all healthy. Her 59-year-old son does have some difficulty with prostate issues. 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 She is a lifelong nonsmoker. She used to drink on occasion but has not done so in many years. She denies illicit substance use. She ambulates with a cane. Primary care physician: Dr. Can Thomas Code status: Full code Surrogate decision maker: Althea Vela (daughter) Smoking status: Never smoker Second hand tobacco smoke exposure: Yes Alcohol intake: never Substance use: never Substance use type: does not use Gender identity (if verbalized by the patient): Female Sexual Orientation (if Verbalized by the Patient): Straight or Heterosexual Spiritual care concerns: No Exam Narrative: GENERAL: Well-appearing, well-nourished, and in no acute distress. HEAD: Normocephalic, atraumatic NOSE: Nares clear, no rhinorrhea or epistaxis THROAT:Mucous membranes moist, Oropharynx normal without erythema, exudate, peritonsillar swelling or fluctuance
[2021-03-11] VITALS (7 sets, daily range): BP systolic 137–158; BP diastolic 62–88; PULSE 65–88; RESP 16–20; TEMP 35.9–36.6; O2SAT 97–100; BMI 26.4
[2021-03-11] MEDS: SODIUM CHLORIDE 0.9% IV 1,000 ML 999 ML IV CONT (01:45)
--- NOTE | 2021-03-11 02:50 | ADMGEN ---
This patient, Cora Lamar, was admitted to Medical Room 340-01. Patient/family oriented to hospital policies and general routines including ID bracelet, bed and alarms, visiting hours, pain management, procedures, bathroom and other care routines, personal items, smoking policy, room service/diet, and visiting hours. Information on how to activate the Rapid Response Team has been discussed. Patient/Family are encouraged to report perceived risks to care and to ask questions if they do not understand what they are told or what they should do.
[2021-03-11] MEDS: SODIUM CHLORIDE 0.9% IV 1,000 ML 125 ML IV CONT ×3 (03:01→16:55)
--- NOTE | 2021-03-11 03:06 | PM.IMHP ---
H&P: HPI History of Present Illness Date/Time: 03/11/21 03:06 Chief Complaint: HEMOPTYSIS Narrative: THIS IS AN 80-YEAR-OLD FEMALE WITH PAST MEDICAL HISTORY SIGNIFICANT FOR OSTEOPOROSIS, HYPERTENSION, GERD: CORONARY ARTERY DISEASE, PATIENT IS ON DUAL ANTI-PLATELET THERAPY. SHE COMES IN TODAY AFTER SHE HAD SEVERAL EPISODES OF COUGHING UP BLOOD HOWEVER PATIENT CAN NOT REALLY TELL IF SHE COUGHED UP THE BLOOD OR VOMITED THE BLOOD BUT BY HISTORY APPEARS TO BE HEMOPTYSIS SHE STATES THAT SHE HAS BEEN COUGHING QUITE A LOT LATELY AND SHE HAS BEEN TAKING COUGH DROPS. SHE DENIES ANY SHORTNESS OF BREATH NO CHEST PAIN NO PND NO ORTHOPNEA NO LEG SWELLING NO FEVERS NO RIGORS NO CHILLS. PRELIMINARY WORKUP WAS SIGNIFICANT FOR CTA PE PROTOCOL FOR BRONCHIECTASES AND INFILTRATES. Review of Systems Review of Systems: HEMOPTYSIS COUGH Constitutional: Constitutional: Denies chills, Denies fatigue, Denies fever(s), Denies lethargy and Denies malaise Eyes: Eyes: Denies change in vision ENT: Denies dysphagia, Denies nasal congestion, Denies nasal discharge, Denies nasal obstruction and Denies odynophagia Cardiovascular: Cardiovascular: Denies irregular heart rhythm, Denies claudication, Denies radiating jaw, neck or arm pain, Denies palpitations, Denies dyspnea on exertion and Denies orthopnea Respiratory: Respiratory: Reports cough and Reports hemoptysis Comments: HEMOPTYSIS Gastrointestinal: Gastrointestinal: Denies abdominal pain, Denies melena, Denies hematochezia, Denies heartburn, Denies nausea and Denies vomiting Genitourinary: Genitourinary: Reports no additional female genitourinary complaints Musculoskeletal: Musculoskeletal: Reports no additional musculoskeletal complaints Integumentary/Breasts: Skin/Breast: Reports system reviewed and no additional complaints, except as docu Neurologic: Reports system reviewed and no additional complaints, except as documented Psychiatric: Psychiatric: Reports no additional psychiatric complaints Endocrine: Endocrine: Reports no additional endocrine complaints Hematologic/Lymphatic: Hematologic/Lymphatic: Reports no additional hematologic/lymphatic complaints Allergic/Immunologic: Allergic/Immunologic: Reports no additional allergic/immunologic complaints [facility] Past Medical History Medical History (Updated 03/11/21 @ 03:17 by Bobby Wagoner MD) Essential hypertension GERD (gastroesophageal reflux disease) Hemorrhoids Herpes zoster dermatitis 1993 Migraines Overflow stress urinary incontinence in female Post-menopausal osteoporosis Surgical History Surgical History (Updated 09/06/20 @ 23:30 by Fatimah Hernández DO) History of appendectomy History of right knee surgery 1971 Hx of tonsillectomy S/P foot surgery, left Growth removed from left foot 1990 Family History Family History Father Acute myocardial infarction Sibling Heart disease Acute myocardial infarction Mother Hemochromatosis Cerebrovascular accident Leukemia Social History Social History (Updated 09/07/20 @ 03:32 by Fatimah Hernández DO) Social History: She lives in 91-year-old who is moderate to severe dementia. She is primary caregiver. Her daughter lives next door. They have been for 31 years. She has 3 biologic children and 3 step children. Her children are all healthy. Her 59-year-old son does have some difficulty with prostate issues. 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 She is a lifelong nonsmoker. She used to drink on occasion but has not done so in many years. She denies illicit substance use. She ambulates with a cane. Primary care physician: Dr. Can Thomas Code status: Full code Surrogate decision maker: Althea Vela (daughter) Smoking status: Never smoker Second hand tobacco smoke exposure: Yes Alcohol intake: never Substance use: never Substance use type: does not u
[2021-03-11 08:29] LABS: Basophils Percent Auto 0.3 % (0.2-1.2); Eosinophils Absolute Auto 0.1 K/mm3 (0-0.3); Eosinophils Percent Auto 0.9 % (0-4.4); Hematocrit 34.3 % (37.0-47.0); Hemoglobin 11.1 g/dL (12.0-15.0); Immature Granulocyte Absolute 0.08 K/mm3 (0.00-0.031); Immature Granulocyte Percent A 0.7 % (0-0.5); Lymphocytes Percent Auto 5.2 % (18.3-44.2); Mean Corpuscular HGB Conc 32.4 g/dl (32-36); Mean Corpuscular Hemoglobin 29.2 pg (26-34); Mean Corpuscular Volume 90.3 fl (80-100); Mean Platelet Volume 9.7 fl (7.4-10.4); Monocytes Percent Auto 8.6 % (2.6-8.5); Neutrophils Absolute Auto 9.8 K/mm3 (1.3-6.7); Neutrophils Percent Auto 84.3 % (45.5-73.1); Platelet Count Result 244 k/mm3 (150-375); Red Cell Distribution Width 13.8 % (11.5-14.5); White Blood Count 11.6 K/mm3 (4.5-10.0)
[2021-03-11 08:59] LABS: Alanine Aminotransferase 26 U/L (4-35); Albumin Level 3.7 g/dL (3.5-5.1); Alkaline Phosphatase 50 U/L (38-126); Anion Gap 7 mmol/L (8-16); Aspartate Amino Transferase 29 U/L (14-36); Bilirubin,Total 0.5 mg/dL (0.2-1.3); Blood Urea Nitrogen 18 mg/dL (7-17); Calcium 8.8 mg/dL (8.4-10.2); Carbon Dioxide 24 mmol/L (22-30); Chloride 106 mmol/L (98-107); Estimated CRCL calculation 32 ml/min; Estimated Glomerular Filt Rate 48; Glucose 110 mg/dL (65-110); Potassium 3.7 mmol/L (3.4-5.0); Sodium 137 mmol/L (137-145)
[2021-03-11] MEDS: CALCIUM CARBONATE (OSCAL) 500 MG TABLET PO (09:18)
[2021-03-11] MEDS: VITAMIN B COMPLEX CAPSULE 1 CAP PO (09:18)
[2021-03-11] MEDS: CHOLECALCIFEROL 1,000 UNITS TABLET 1000 UNITS PO (09:18)
[2021-03-11] MEDS: TICAGRELOR 90 MG TABLET PO ×2 (09:18→20:11)
[2021-03-11] MEDS: atenoloL 50 MG TABLET PO (09:18)
[2021-03-11] MEDS: ROSUVASTATIN 10 MG TABLET 20 MG PO (09:18)
[2021-03-11] MEDS: VITAMIN E 400 UNIT CAPSULE PO (09:19)
[2021-03-11] MEDS: ASPIRIN 81 MG CHEWABLE TABLET PO (09:19)
[2021-03-11] MEDS: PANTOPRAZOLE 40 MG TABLET PO (09:19)
--- NOTE | 2021-03-11 16:10 | PM.IMPN ---
Progress Note: A&P Assessment and Plan (1) Bronchiectasis with (acute) exacerbation: Code(s): J47.1 - Bronchiectasis with (acute) exacerbation Status: Acute Assessment and Plan: Imaging consistent with possible acute or chronic inflammation or infection - recommend repeat CT in 2 to 3 months to re-evaluate. She was started on azithromycin and rocephin, continue. Albuterol as needed. (2) Pneumonia: Qualifiers: Pneumonia type: due to unspecified organism Laterality: unspecified laterality Lung location: unspecified part of lung Qualified Code(s): J18.9 - Pneumonia, unspecified organism Code(s): J18.9 - Pneumonia, unspecified organism Status: Acute Assessment and Plan: See above. (3) Cough with hemoptysis: Code(s): R04.2 - Hemoptysis Status: Acute Assessment and Plan: Patient remains on dual anti-platelet therapy. This is continued at this time, can be reconsidered if hemoptysis persists but she has had none today. Consider pulmonology consult if worsening. (4) SHIKHA (acute kidney injury): Code(s): N17.9 - Acute kidney failure, unspecified Status: Acute Assessment and Plan: Mild and improved with IV hydration. Adequate oral intake today, stop IV fluids. Monitor renal function and electrolytes. (5) GERD (gastroesophageal reflux disease): Qualifiers: Esophagitis presence: without esophagitis Qualified Code(s): K21.9 - Gastro-esophageal reflux disease without esophagitis Code(s): K21.9 - Gastro-esophageal reflux disease without esophagitis Status: Acute Assessment and Plan: No acute issues, continue PPI. (6) Essential hypertension: Code(s): I10 - Essential (primary) hypertension Status: Acute Assessment and Plan: Stable, last 138/77. Continue home atenolol. Losartan is held due to renal function. (7) Renal mass: Code(s): N28.89 - Other specified disorders of kidney and ureter Status: Acute Assessment and Plan: Incidental finding on imaging, discussed with patient. Consider pre and post contrast CT or MRI for further evaluation. Will defer this to outpatient at this time given her SHIKHA. Subjective Date/time seen: 03/11/21 1540 Interval history: Ms. Lamar is a pleasant 80yo F with history of hypertension seen in follow-up for pneumonia. She is feeling better today. She has not coughed up any blood today. Denies chest pain or shortness of breath. Denies nausea or vomiting. Review of Systems Review of Systems: All systems reviewed & are unremarkable except as noted in HPI and below Exam Narrative: General: Elderly female resting comfortable sitting up in bedside chair in no acute distress. HEENT: Normocephalic, EOMI, oral mucosa moist. Cardiovascular: Rate and rhythm are regular. Respiratory: Faint bibasilar rhonchi. Respirations even and non-labored. Tolerating room air. Abdomen: Soft, non-tender, non-distended, bowel sounds present. Extremities: Peripheral pulses intact. No edema or pain to palpation. Neuro: Awake and alert; answering questions appropriately. No focal neurological deficits. Speech is clear. Objective Data Vital Signs Vital Signs: Last Vital Signs Temp 96.7 F L 03/11/21 14:36 Pulse 77 03/11/21 14:36 Resp 18 03/11/21 14:36 BP 138/77 03/11/21 14:36 Pulse Ox 100 03/11/21 14:36 Intake/Output Intake/Output: Intake & Output 03/08/21 03/09/21 03/10/21 03/11/21 23:59 23:59 23:59 23:59 Intake Total 3280 Output Total 1225 Balance 2055 Meds/Results Medications: Active Medications Generic Name Dose R
[2021-03-12 04:17] VITALS: BP 139/52; PULSE 70; RESP 17; TEMP 36.3; O2SAT 98
[2021-03-12 06:05] LABS: Basophils Percent Auto 0.5 % (0.2-1.2); Eosinophils Absolute Auto 0.5 K/mm3 (0-0.3); Eosinophils Percent Auto 6.3 % (0-4.4); Hematocrit 30.5 % (37.0-47.0); Hemoglobin 10.2 g/dL (12.0-15.0); Immature Granulocyte Absolute 0.03 K/mm3 (0.00-0.031); Immature Granulocyte Percent A 0.4 % (0-0.5); Lymphocytes Absolute Auto 1.15 K/mm3 (0.9-3.2); Lymphocytes Percent Auto 13.5 % (18.3-44.2); Mean Corpuscular HGB Conc 33.4 g/dl (32-36); Mean Corpuscular Hemoglobin 29.7 pg (26-34); Mean Corpuscular Volume 88.9 fl (80-100); Monocytes Absolute Auto 0.8 K/mm3 (0.1-0.6); Monocytes Percent Auto 9.2 % (2.6-8.5); Neutrophils Percent Auto 70.1 % (45.5-73.1); Platelet Count Result 218 k/mm3 (150-375); Red Blood Count 3.43 M/mm3 (4.2-5.4); Red Cell Distribution Width 13.9 % (11.5-14.5); White Blood Count 8.5 K/mm3 (4.5-10.0)
[2021-03-12 06:18] LABS: Alanine Aminotransferase 21 U/L (4-35); Albumin Level 3.2 g/dL (3.5-5.1); Alkaline Phosphatase 45 U/L (38-126); Anion Gap 5 mmol/L (8-16); Aspartate Amino Transferase 25 U/L (14-36); Bilirubin,Total 0.4 mg/dL (0.2-1.3); Blood Urea Nitrogen 14 mg/dL (7-17); Calcium 8.4 mg/dL (8.4-10.2); Carbon Dioxide 24 mmol/L (22-30); Chloride 107 mmol/L (98-107); Estimated CRCL calculation 29 ml/min; Estimated Glomerular Filt Rate 43; Glucose 91 mg/dL (65-110); Magnesium 1.8 mg/dL (1.6-2.3); Potassium 3.4 mmol/L (3.4-5.0); Sodium 136 mmol/L (137-145)
[2021-03-12] MEDS: ROSUVASTATIN 10 MG TABLET 20 MG PO (08:14)
[2021-03-12] MEDS: ASPIRIN 81 MG CHEWABLE TABLET PO (08:14)
[2021-03-12] MEDS: VITAMIN B COMPLEX CAPSULE 1 CAP PO (08:14)
[2021-03-12 08:15] VITALS: PULSE 64
[2021-03-12] MEDS: PANTOPRAZOLE 40 MG TABLET PO (08:15)
[2021-03-12] MEDS: CALCIUM CARBONATE (OSCAL) 500 MG TABLET PO (08:15)
[2021-03-12] MEDS: VITAMIN E 400 UNIT CAPSULE PO (08:15)
[2021-03-12] MEDS: CHOLECALCIFEROL 1,000 UNITS TABLET 1000 UNITS PO (08:15)
[2021-03-12] MEDS: TICAGRELOR 90 MG TABLET PO (08:15)
[2021-03-12] MEDS: atenoloL 50 MG TABLET PO (08:15)
--- NOTE | 2021-03-12 10:42 | PM.CNPUL ---
Assessment and Plan Assessment and plan (1) Bronchiectasis with (acute) exacerbation: Code(s): J47.1 - Bronchiectasis with (acute) exacerbation Status: Acute Assessment and Plan: She has scattered areas of bronchiectasis in both lungs, tree in bud area in the right middle lobe with ground-glass opacities that probably is acute on chronic infection. She has had recurrent respiratory infections for many years and on occasion is used inhalers; she has an area of suspicious inflammation versus malignancy in the left upper lobe 2.5 cm. She does not have any additional hemoptysis or symptoms to suggest cancer, she has anemia but does not have weight loss, difficulty swallowing, shortness of breath, chest pain or malaise. Best option for this patient is a follow-up chest CT in 2-3 months. We will happily follow her in the office. I agree with treating her as a community-acquired pneumonia and we will finish her workup for bronchiectasis and her abnormal area in the left upper lobe as an outpatient. She is stable to go home today. Thank you for this consult. I discussed this with Lola Colmenares PA-C. She has senile emphysema, non-smoker, exposed to second hand smoke. PLAN: Discharge home, oral antibiotics, Cornet valve to improve pulmonary hygiene for underlying bronchiectasis with acute exacerbation, we will get pulmonary function tests 6 minute walk and other follow-up CT in 2-3 months. f/u appt with me in 2- weeks. (2) Cough with hemoptysis: Onset Date: ~03/12/21 Code(s): R04.2 - Hemoptysis Status: Acute Assessment and Plan: She had 30 minutes of hemoptysis which may have represented also some vomiting, and has not had any since she was admitted. She was on dual anti-platelet therapy for CAD on admission. This problem has resolved. History of Present Illness History of Present Illness Consult date: 03/12/21 Requesting physician: Lola Yost PA-C Reason for consult: other (hemoptysis, pneumonia, abnormal chest CT with possible malignanacy) Chief complaint: pneumonia, hemoptypsis, acute renal failure Narrative: NEW: Cora Esteban is 80 yo female with hx of recurrent bronchitis and pneumonia. She generally has a few episodes a year. She has been admitted to a hospital only 2 or 3 times total over many years, usually treated at home. She has CAD and is on Dual anti-platelet therapy. . She is in generally good health and takes care of her 91-year-old demented . For the last 3 weeks she has had increased coughing which she attributed to uptick in her allergies. She has frequent coughing and says other symptoms in different parts of her house for example using her computer. She is sensitive to dust and other allergens.A few days ago she had the acute onset of bright red blood, was coughing up for about a half an hour. She had a large amount of fluid come up, and the description suggest that she vomited. Sometimes is difficult to tell the difference between him coughing something up and vomiting. It is not clear if she was coughing to the point of vomiting or expectorating from her lungs. She did not have shortness of breath or chest pain. After 1/2 hour of this she decided to come to the hospital. She has not had any additional episodes since arrival. She had a chest CT that shows bronchiectasis, tree-in-bud abnormalities in the RML, probable recurrent infection. Also 2.5 cm region of GGO in the left apex, infection versus malignancy such as bronchoalveolar carcinoma. The patient is a lifelong nonsmoker. She grew up in smoke, parents and her 1st smoked. 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 She has not had difficulty swallowing, weight loss, fever chills or fatigue. I told her about the suspicious area in
[2021-03-12 14:00] VITALS: BP 137/57; PULSE 70; RESP 16; TEMP 36.8; O2SAT 97
--- NOTE | 2021-03-12 14:20 | PM.DS ---
DS: Admitting Diagnosis Admitting Diagnosis Pneumonia DS: Discharge Diagnosis Discharge Diagnosis (1) Bronchiectasis with (acute) exacerbation: Code(s): J47.1 - Bronchiectasis with (acute) exacerbation Status: Acute Assessment and Plan: Imaging consistent with possible acute or chronic inflammation or infection -patient was placed on ceftriaxone and azithromycin and improved on this treatment. She was discharged with cefdinir and azithromycin -it is recommended that she obtain a repeat lung CT to ensure that the abnormalities have improved and there is no evidence of malignancy. Pulmonology was consulted and agreed to follow this up (2) Pneumonia: Qualifiers: Laterality: unspecified laterality Lung location: unspecified part of lung Pneumonia type: due to unspecified organism Qualified Code(s): J18.9 - Pneumonia, unspecified organism Code(s): J18.9 - Pneumonia, unspecified organism Status: Acute Assessment and Plan: As above (3) Cough with hemoptysis: Onset Date: ~03/12/21 Code(s): R04.2 - Hemoptysis Status: Acute Assessment and Plan: Likely due to infection, this has resolved. Continue anti-platelet therapy. She is to have follow-up scans to ensure no further pathology (4) SHIKHA (acute kidney injury): Code(s): N17.9 - Acute kidney failure, unspecified Status: Acute Assessment and Plan: Mild and improved (5) GERD (gastroesophageal reflux disease): Qualifiers: Esophagitis presence: without esophagitis Qualified Code(s): K21.9 - Gastro-esophageal reflux disease without esophagitis Code(s): K21.9 - Gastro-esophageal reflux disease without esophagitis Status: Acute Assessment and Plan: No acute issues, continue PPI. (6) Essential hypertension: Code(s): I10 - Essential (primary) hypertension Status: Acute Assessment and Plan: Stable, last blood pressure 137/57. Continue atenolol and amlodipine (7) Renal mass: Code(s): N28.89 - Other specified disorders of kidney and ureter Status: Acute Assessment and Plan: Incidental finding on imaging, discussed with patient. Consider pre and post contrast CT or MRI for further evaluation. Will defer this to outpatient at this time given her SHIKHA. I have spoken to her primary care physician about this (8) Thyroid goiter: Code(s): E04.9 - Nontoxic goiter, unspecified Status: Acute Assessment and Plan: Noted on CT, I spoke with the primary care PA and let them know that if she has not had an ultrasound to assess this, they may consider 1 outpatient. TSH is normal DS: Summary Hospital Course Hospital Course: date of service 03/12/2021 Patient is an 80-year-old female with a history of coronary artery disease with stents who presented emergency room for hemoptysis. Patient states she also started throwing up a little blood but it was because she was coughing up blood and then was swallowing it which made her nauseated. Vitals in the ER were temperature 98.3?, pulse 100, respiratory rate 16, blood pressure 173/74, pulse ox 100 on room air. Initial white blood cell count 7.4, hemoglobin 11.6, hematocrit 35.6, platelets 271. BMP showed a sodium 132, potassium 3.6, chloride 96, CO2 26, BUN 22, creatinine 1.4, glucose 128. CTA of the chest:1. Mild bronchiectasis and tree-in-bud opacities in the right middle lobe consistent with suggesting recurrent acute on chronic pneumonia. 2. Approximately 2.5 cm region of groundglass opacity with central irregular septal line thickening at the left apex with differential including acute or chronic infection/inflammation or malignancy such as bronchoalveolar carcinoma. Recommend correlation with any prior outside imaging. Otherwise would recommend 2-3 month follow-up with consideration for biopsy should the lesion persist. 3. Mild emphy
== END 2021-03-12 15:22 | disposition home or self-care (01) ==
LOC: ANHED 03-11 02:55 → ANH3MED 03-11 02:58
PROVIDERS: Emergency Medicine; Physician Assistant; Admitting Provider Internal Medicine; Emergency Provider General Practice; PCP Family Medicine; Visit Provider Internal Medicine
DX: J47.1 Bronchiectasis with (acute) exacerbation (principal); J18.9 Pneumonia, unspecified organism; R04.2 Hemoptysis; N17.9 Acute kidney failure, unspecified; N28.89 Other specified disorders of kidney and ureter; E04.9 Nontoxic goiter, unspecified; I25.10 Atherosclerotic heart disease of native coronary artery without angina pectoris; I10 Essential (primary) hypertension; K21.9 Gastro-esophageal reflux disease without esophagitis; M81.0 Age-related osteoporosis without current pathological fracture; Z95.5 Presence of coronary angioplasty implant and graft; Z79.01 Long term (current) use of anticoagulants; Z79.82 Long term (current) use of aspirin
CPT/HCPCS: 36415; 71046; 71275; 80048; 80053; 83735; 85025; 85610; 85730; 87040; 96361; 96365; 96366; 96367; 96375; 99285; A9270; C9113; G0378; J0456; J0696; J7030; J7040; Q9967

== ENCOUNTER 2021-03-15 16:32 | Emergency (ER) | payer MEDICARE, SELFPAY ==
[2021-03-15 16:35] VITALS: BP 174/97; PULSE 98; RESP 20; TEMP 37.8; O2SAT 98
--- NOTE | 2021-03-15 17:01 | PC.NURSE ---
patient to exam room. states she rather stay in wheelchair than get onto stretcher
--- NOTE | 2021-03-15 18:50 | ED.NECK ---
HPI - Neck Pain/Injury General Chief Complaint: Neck Pain/Injury Stated Complaint: Left neck and back pain Time Seen by Provider: 03/15/21 18:04 History of Present Illness HPI Narrative: Patient presents with left-sided neck pain that radiates down her back. Patient reports symptoms started yesterday and she was unable to sleep due to pain. Family place [id number] pain relief patches this morning pain still persisted so they came to the ER for evaluation. At time of evaluation patient reporting she is feeling much improved. Pain is waxing and waning in intensity is primarily on the left side of her neck is achy/sharp in nature. Pain is exacerbated by shrugging her shoulders. She denies any trauma she denies any lightheadedness denies any chest pain or shortness of breath. She denies any midline neck or back pain. Patient ports she was with her all day yesterday in the hospital reports sitting in chairs Related Data Home Medications Medication Instructions Recorded Confirmed Centrum Silver Women 1 tablet PO DAILY 01/03/20 03/11/21 alendronate 70 mg PO WEEKLY 01/03/20 03/11/21 aspirin 81 mg PO DAILY 01/03/20 03/11/21 atenolol 50 mg PO DAILY 01/03/20 03/11/21 calcium carbonate [Calcium 500] 500 mg PO DAILY 01/03/20 03/11/21 echinacea 400 mg PO DAILY 01/03/20 03/11/21 losartan 50 mg PO DAILY 01/03/20 03/11/21 omega 9-kuh-tde-fish oil [Fish Oil] 1 cap PO DAILY 01/03/20 03/11/21 protein [Boost High Protein] 1 ea PO DAILY 01/03/20 03/11/21 cholecalciferol (vitamin D3) 25 mcg PO DAILY 09/06/20 03/11/21 [Vitamin D3] pantoprazole 40 mg PO DAILY 09/06/20 03/11/21 vitamin B complex [B 1 tablet PO DAILY 09/06/20 03/11/21 Complex-Vitamin B12] vitamin E 400 unit PO DAILY 09/06/20 03/11/21 Allergies Allergy/AdvReac Type Severity Reaction Status Date / Time rice Allergy Severe Swelling Verified 03/15/21 17:02 Review of Systems Review of Systems: CONSTITUTIONAL: Denies fever, chills, or sweats. EYES: Denies visual changes, redness, or discharge. ENT: Denies rhinorrhea, congestion, sore throat, or otalgia. CARDIOVASCULAR: Denies chest pain, palpitations, or edema. RESPIRATORY: Denies cough or dyspnea. GASTROINTESTINAL: Denies abdominal pain, nausea, vomiting, or diarrhea. GENITOURINARY: Denies dysuria or hematuria. SKIN: Denies rash or itching. MUSCULOSKELETAL: Denies back pain, joint pain, or myalgia. NEUROLOGIC: Denies headache, numbness, dizziness, or weakness. PSYCHIATRIC: Denies anxiety or depression. All systems reviewed & are unremarkable except as noted in HPI and below PMFSH Past Medical History Medical History Essential hypertension GERD (gastroesophageal reflux disease) Hemorrhoids Herpes zoster dermatitis 1993 Migraines Overflow stress urinary incontinence in female Post-menopausal osteoporosis Surgical History Surgical History History of appendectomy History of right knee surgery 1971 Hx of tonsillectomy S/P foot surgery, left Growth removed from left foot 1990 Family History Family History Father Acute myocardial infarction Sibling Heart disease Acute myocardial infarction Mother Hemochromatosis Cerebrovascular accident Leukemia Social History Social History Social History: She lives in 91-year-old who is moderate to severe dementia. She is primary caregiver. Her daughter lives next door. They have been for 31 years. She has 3 biologic children and 3 step children. Her children are all healthy. Her 59-year-old son does have some difficulty with prostate issues. 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 She is a lifelong nonsmoker. She used to drink on occasion but has not done so in many years. She denies illicit substance use
== END 2021-03-15 19:03 | disposition home or self-care (01) ==
PROVIDERS: Emergency Provider Emergency Medicine; PCP Family Medicine
DX: M62.838 Other muscle spasm (principal); I10 Essential (primary) hypertension; K21.9 Gastro-esophageal reflux disease without esophagitis; M81.0 Age-related osteoporosis without current pathological fracture; Z79.82 Long term (current) use of aspirin
CPT/HCPCS: 99283

== ENCOUNTER 2021-03-28 10:20 | Outpatient (CLI) | payer MEDICARE, SELFPAY ==
--- NOTE | ~2021-03-28 | MR_ITS ---
EXAMINATION: MR abdomen wo/w con DATE: 03/28/2021 12:34 INDICATION: Left renal mass TECHNIQUE: Magnetic resonance imaging (MRI) of the abdomen was performed without and with 10 mL Multi nicolás intravenous contrast. Sequences included coronal T2-weighted SS-FSE, coronal and axial FS 2D-F IESTA, axial STIR FSE, axial T2-weighted SS-FSE, axial T2-weighted FS SS-FSE, axial diffusion-weighte d SE, axial dual-echo T1-weighted FSPGR, and axial and coronal T1-weighted LAVA. Postcontrast axial T 1-weighted LAVA images were obtained in a time course. Postcontrast coronal T1-weighted LAVA images w ere obtained. COMPARISON: CT dated 03/10/2021 FINDINGS: Heart size is normal. No pericardial or pleural effusion. Linear band of discoid atelectasis/scarring in the right middle lobe along the minor fissure. Liver, gallbladder, spleen, pancreas and bilateral adrenal glands are normal. There are multiple bilateral nonenhancing renal cysts, some of which appe ar simple and many of which are complex proteinaceous/hemorrhagic with increased T1 and increased but less than simple fluid T2 signal. This includes the previously noted 2.2 cm lesion at the upper pole of the left kidney which also demonstrates a layering fluid/hematocrit level consistent with a hemor rhagic cyst. Visualized portions of the bowels are unremarkable. No pathologically enlarged abdominal lymphadenopathy. Severe spondylosis with fibrovascular degenerative endplate changes at T12-L1. Othe rwise normal marrow signal with no pathologic marrow replacing process. IMPRESSION: 1. Multiple bilateral simple and complex cysts/hemorrhagic cyst which include the 2.1 cm lesion of co ncern at the upper pole of the left kidney. No solid enhancing renal lesions to suggest renal cell ca rcinoma. Reviewed, dictated and finalized at location B. IMPRESSION: 1. Multiple bilateral simple and complex cysts/hemorrhagic cyst which include t he 2.1 cm lesion of concern at the upper pole of the left kidney. No solid enha ncing renal lesions to suggest renal cell carcinoma.
== END 2021-03-28 10:21 | disposition home or self-care (01) ==
PROVIDERS: PCP Family Medicine; Visit Provider Family Medicine
DX: N28.89 Other specified disorders of kidney and ureter (principal)
CPT/HCPCS: 74183; A9577

== ENCOUNTER 2021-10-10 07:51 | Emergency (ER) | payer MEDICARE, SELFPAY ==
[2021-10-10] VITALS (13 sets, daily range): BP systolic 101–155; BP diastolic 63–68; PULSE 65–108; RESP 17–23; TEMP 36.6; O2SAT 98–100
--- NOTE | ~2021-10-10 | CT_ITS ---
EXAMINATION: CT abdomen pelvis wo con DATE: 10/10/2021 08:28 INDICATION: Flank pain TECHNIQUE: Computed tomography (CT) of the abdomen and pelvis was performed without intravenous contr ast. The dose-length product (DLP) was 173.87 mGy-cm. Automated exposure control and iterative recons truction technique were employed. COMPARISON: MRI, 03/28/2021 FINDINGS: Minimal dependent atelectasis is present in the lung bases. The heart size is normal. There is a trace right pleural effusion. The liver, spleen, pancreas, gallbladder, and adrenal glands are normal. There are multiple simple and complicated cysts of the kidneys. There is a 2 mm nonobstructin g stone of the right kidney. There is a 2 mm nonobstructing stone of the left kidney. No stones are p resent in the ureters or bladder. There is no hydronephrosis or hydroureter. There is mild fat strand ing surrounding the urinary bladder. Colonic diverticulosis is present without evidence of diverticul itis. No pathologically enlarged abdominal or pelvic lymph nodes are identified. There is no free int raperitoneal gas or evidence of bowel obstruction. The appendix is normal. There is severe spondylosi s at T12-L1. Mild lumbar spondylosis is noted. There are posterior calcifications in the gluteal soft tissues which could reflect injection sites. IMPRESSION: 1. Fat stranding surrounding the urinary bladder which could reflect cystitis. Urinalysis pending. No obstructing urolithiasis. Reviewed, dictated and finalized at location B. [employer]
[2021-10-10 08:35] LABS: Basophils Percent Auto 0.3 % (0.2-1.2); Eosinophils Percent Auto 0.2 % (0-4.4); Hematocrit 37.2 % (37.0-47.0); Hemoglobin 12.1 g/dL (12.0-15.0); Immature Granulocyte Absolute 0.03 K/mm3 (0.00-0.031); Immature Granulocyte Percent A 0.3 % (0-0.5); Lymphocytes Absolute Auto 1.35 K/mm3 (0.9-3.2); Lymphocytes Percent Auto 11.5 % (18.3-44.2); Mean Corpuscular HGB Conc 32.5 g/dl (32-36); Mean Corpuscular Hemoglobin 29.5 pg (26-34); Mean Corpuscular Volume 90.7 fl (80-100); Mean Platelet Volume 9.6 fl (7.4-10.4); Monocytes Absolute Auto 0.7 K/mm3 (0.1-0.6); Neutrophils Absolute Auto 9.6 K/mm3 (1.3-6.7); Neutrophils Percent Auto 81.7 % (45.5-73.1); Platelet Count Result 276 k/mm3 (150-375); Red Cell Distribution Width 14.1 % (11.5-14.5); White Blood Count 11.7 K/mm3 (4.5-10.0)
[2021-10-10 08:45] LABS: Alanine Aminotransferase 25 U/L (4-35); Albumin Level 4.4 g/dL (3.5-5.1); Alkaline Phosphatase 66 U/L (38-126); Anion Gap 8 mmol/L (8-16); Aspartate Amino Transferase 42 U/L (14-36); Bilirubin,Total 0.5 mg/dL (0.2-1.3); Blood Urea Nitrogen 24 mg/dL (7-17); Calcium 9.2 mg/dL (8.4-10.2); Carbon Dioxide 28 mmol/L (22-30); Chloride 101 mmol/L (98-107); Estimated CRCL calculation 23 ml/min; Estimated Glomerular Filt Rate 39; Glucose 148 mg/dL (65-110); Potassium 3.8 mmol/L (3.4-5.0); Sodium 137 mmol/L (137-145)
[2021-10-10 09:10] LABS: Add Urine Microscopic? YES; Appearance Urine Cloudy (Clear); Bilirubin Urine Negative (Negative); Blood Urine 3+ (Negative); Color Urine Red (Yellow); Glucose Urine UA 1+ mg/dL (Negative); Ketones Urine Trace mg/dL (Negative); Leukocyte Esterase Ur Trace LEU/UL (Negative); Nitrate Urine Negative (Negative); Protein Urine 2+ mg/dL (Negative); Specific Grav Ur 1.021 (1.001-1.035); Urobilinogen Urine Negative mg/dL (<2.0)
[2021-10-10 09:14] LABS: RBC Urine >75 /hpf (0-2)
--- NOTE | 2021-10-10 10:44 | ED.FEMALEGU ---
HPI - Female Genitourinary General Chief complaint: Vaginal Bleeding Stated complaint: vaginal bleeding Time Seen by Provider: 10/10/21 08:04 History of Present Illness HPI Narrative: Patient is an 81-year-old female who presents ER with hematuria. She has leaking urinary continence that is chronic and today her pad was bloody. She feels like she cannot completely empty. No fevers or chills or sweats. She does have some radiation into her flank. No history of kidney stones. Related Data Home Medications Medication Instructions Recorded Confirmed Centrum Silver Women 1 tablet PO DAILY 01/03/20 03/11/21 alendronate 70 mg PO WEEKLY 01/03/20 03/11/21 aspirin 81 mg PO DAILY 01/03/20 03/11/21 atenolol 50 mg PO DAILY 01/03/20 03/11/21 calcium carbonate [Calcium 500] 500 mg PO DAILY 01/03/20 03/11/21 echinacea 400 mg PO DAILY 01/03/20 03/11/21 losartan 50 mg PO DAILY 01/03/20 03/11/21 omega 0-sww-snq-fish oil [Fish Oil] 1 cap PO DAILY 01/03/20 03/11/21 protein [Boost High Protein] 1 ea PO DAILY 01/03/20 03/11/21 cholecalciferol (vitamin D3) 25 mcg PO DAILY 09/06/20 03/11/21 [Vitamin D3] pantoprazole 40 mg PO DAILY 09/06/20 03/11/21 vitamin B complex [B 1 tablet PO DAILY 09/06/20 03/11/21 Complex-Vitamin B12] vitamin E 400 unit PO DAILY 09/06/20 03/11/21 Allergies Allergy/AdvReac Type Severity Reaction Status Date / Time rice Allergy Severe Swelling Verified 03/15/21 17:02 Review of Systems Review of Systems: All systems reviewed & are unremarkable except as noted in HPI and below Constitutional: Constitutional: Denies chills and Denies fatigue Respiratory: Respiratory: Denies cough and Denies dyspnea Gastrointestinal: Gastrointestinal: Reports abdominal pain, Denies diarrhea, Denies nausea and Denies vomiting Genitourinary: Genitourinary: Reports hematuria, Reports nocturia, Denies dysuria, Reports flank pain and Reports urinary incontinence PMFSH Past Medical History Medical History Essential hypertension GERD (gastroesophageal reflux disease) Hemorrhoids Herpes zoster dermatitis 1993 Migraines Overflow stress urinary incontinence in female Post-menopausal osteoporosis Surgical History Surgical History History of appendectomy History of right knee surgery 1971 Hx of tonsillectomy S/P foot surgery, left Growth removed from left foot 1990 Family History Family History Father Acute myocardial infarction Sibling Heart disease Acute myocardial infarction Mother Hemochromatosis Cerebrovascular accident Leukemia Social History Social History Social History: She lives in 91-year-old who is moderate to severe dementia. She is primary caregiver. Her daughter lives next door. They have been for 31 years. She has 3 biologic children and 3 step children. Her children are all healthy. Her 59-year-old son does have some difficulty with prostate issues. 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 She is a lifelong nonsmoker. She used to drink on occasion but has not done so in many years. She denies illicit substance use. She ambulates with a cane. Primary care physician: Dr. Can Thomas Code status: Full code Surrogate decision maker: Althea Vela (daughter) Smoking status: Never smoker Second hand tobacco smoke exposure: Yes Alcohol intake: never Substance use: never Substance use type: does not use Gender identity (if verbalized by the patient): Female Sexual Orientation (if Verbalized by the Patient): Straight or Heterosexual Spiritual care concerns: No Exam Narrative: GENERAL: Well-appearing, well-nourished, and in no acute distress. HEAD: Normocephalic, atraumatic. CHEST: Clear to auscultation. No respi
== END 2021-10-10 11:09 | disposition home or self-care (01) ==
PROVIDERS: Emergency Provider Emergency Medicine; PCP Family Medicine
DX: N30.90 Cystitis, unspecified without hematuria (principal); I10 Essential (primary) hypertension; K21.9 Gastro-esophageal reflux disease without esophagitis; N39.490 Overflow incontinence; Z79.82 Long term (current) use of aspirin
CPT/HCPCS: 36415; 74176; 80053; 81001; 85025; 99284

== ENCOUNTER 2021-12-29 13:17 | Emergency (ER) | payer MEDICARE, SELFPAY ==
--- NOTE | ~2021-12-29 | XR_ITS ---
XR elbow RT min 3V DATE: 12/29/2021 13:59 INDICATION: Right elbow pain after fall TECHNIQUE: 4 views COMPARISON: None FINDINGS: There is a transverse supracondylar fracture of the distal humerus with minimal displacemen t. Normal alignment at the elbow joint. IMPRESSION: Transverse supracondylar fracture of distal humerus Reviewed, dictated and finalized at location A.
--- NOTE | ~2021-12-29 | CT_ITS ---
EXAMINATION: CT cervical spine wo con DATE: 12/29/2021 14:39 INDICATION: Neck pain after injury TECHNIQUE: Computed tomography (CT) of the cervical spine was performed without intravenous contrast. The dose-length product was 120 mGy-cm. Automated exposure control and iterative reconstruction tech nique were employed. COMPARISON: None FINDINGS: Lung apices are normal. There is moderate degenerative disc disease at C4-5, C5-6 and C6-7 with degenerative anterolisthesis at C4-5 and C5-6. Odontoid process is normal. There is multilevel u ncinate and facet hypertrophy. No acute, subluxation or dislocation. Craniovertebral junction is norm al. No significant paraspinal soft tissue abnormality. There is atherosclerosis of the carotid arteri es. No evidence for perched facet. IMPRESSION: 1. No acute fracture. 2: Moderate cervical spondylosis. Reviewed, dictated and finalized at location A.
--- NOTE | ~2021-12-29 | CT_ITS ---
EXAMINATION: CT BRAIN W/O DATE: 12/29/2021 14:39 INDICATION: Head injury status post fall. Hematoma right side of the head. TECHNIQUE: Computed tomography (CT) of the head was performed without intravenous contrast. The dose- length product was 605.33 mGy-cm. Automated exposure control and iterative reconstruction technique w ere employed. COMPARISON: No prior studies for comparison. FINDINGS: Mild generalized atrophy. Mild right frontal scalp hematoma. There are scattered mild periv entricular and subcortical white matter changes, most likely related to small vessel ischemic disease (microangiopathy). No acute intracranial hemorrhage, infarction, mass or mass effect. No ventriculomegaly or midline shift. Midline sagittal images demonstrate a normal corpus callosum, c raniovertebral junction and sella turcica. Basilar cisterns are patent. Small air-fluid level left maxillary sinus. No depressed skull fractures. IMPRESSION: 1. No acute intracranial abnormality. Reviewed, dictated and finalized at location A.
[2021-12-29 13:24] VITALS: BP 151/72; PULSE 80; RESP 18; TEMP 36.8; O2SAT 100
--- NOTE | 2021-12-29 13:33 | PC.NURSE ---
Pillow placed on right extremity for support, ice applied. Pt noted to have large hematoma to right side of forehead. SINAN marina made aware.
--- NOTE | 2021-12-29 13:50 | ED.FALL ---
HPI - Fall General Chief Complaint: Fall Stated Complaint: fall/elbow pain/hi Time Seen by Provider: 12/29/21 13:32 History of Present Illness HPI Narrative: 81-year-old female presenting to the emergency department for evaluation after having a mechanical ground-level fall that occurred at 1230. Patient states that they were moving some furniture on the porch when she leaned on an unsteady table causing her to fall and strike her head on the porch railing. Patient also injured her right elbow and has an abrasion to her right knee. Patient denies any loss of consciousness. Patient was able to ambulate after the fall. Patient's primary complaint is right elbow pain. Patient denies any associated numbness or weakness of the right arm. Patient does report increased pain with range of motion. Patient does take Brilinta and aspirin for prior NE. Patient does have stents. Related Data Home Medications Medication Instructions Recorded Confirmed Centrum Silver Women 1 tablet PO DAILY 01/03/20 03/11/21 alendronate 70 mg tablet 70 mg PO WEEKLY 01/03/20 03/11/21 aspirin 81 mg chewable tablet 81 mg PO DAILY 01/03/20 03/11/21 atenolol 50 mg tablet 50 mg PO DAILY 01/03/20 03/11/21 calcium carbonate 500 mg calcium 500 mg PO DAILY 01/03/20 03/11/21 (1,250 mg) tablet (Calcium 500) echinacea 500 mg capsule 400 mg PO DAILY 01/03/20 03/11/21 losartan 50 mg tablet 50 mg PO DAILY 01/03/20 03/11/21 omega 8-jjt-jkl-fish oil 1,000 mg 1 cap PO DAILY 01/03/20 03/11/21 (120 mg-180 mg) capsule (Fish Oil) protein (Boost High Protein) 1 ea PO DAILY 01/03/20 03/11/21 cholecalciferol (vitamin D3) 25 25 mcg PO DAILY 09/06/20 03/11/21 mcg (1,000 unit) capsule (Vitamin D3) pantoprazole 40 mg tablet,delayed 40 mg PO DAILY 09/06/20 03/11/21 release vitamin B complex (B 1 tablet PO DAILY 09/06/20 03/11/21 Complex-Vitamin B12) vitamin E 400 unit capsule 400 unit PO DAILY 09/06/20 03/11/21 Allergies Allergy/AdvReac Type Severity Reaction Status Date / Time rice Allergy Severe Swelling Verified 03/15/21 17:02 Review of Systems Review of Systems: CONSTITUTIONAL: Denies fever, chills, or sweats. EYES: Denies visual changes, redness, or discharge. ENT: Denies rhinorrhea, congestion, sore throat, or otalgia. CARDIOVASCULAR: Denies chest pain, palpitations, or edema. RESPIRATORY: Denies cough or dyspnea. GASTROINTESTINAL: Denies abdominal pain, nausea, vomiting, or diarrhea. GENITOURINARY: Denies dysuria or hematuria. SKIN: Multiple abrasions MUSCULOSKELETAL: See HPI NEUROLOGIC: Denies headache, numbness, or weakness. [facility] Past Medical History Medical History Essential hypertension GERD (gastroesophageal reflux disease) Hemorrhoids Herpes zoster dermatitis 1993 Migraines Overflow stress urinary incontinence in female Post-menopausal osteoporosis Surgical History Surgical History History of appendectomy History of right knee surgery 1971 Hx of tonsillectomy S/P foot surgery, left Growth removed from left foot 1990 Family History Family History Father Acute myocardial infarction Sibling Heart disease Acute myocardial infarction Mother Hemochromatosis Cerebrovascular accident Leukemia Social History Social History Social History: She lives in 91-year-old who is moderate to severe dementia. She is primary caregiver. Her daughter lives next door. They have been for 31 years. She has 3 biologic children and 3 step children. Her children are all healthy. Her 59-year-old son does have some difficulty with prostate issues. 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 She is a lifelong nonsmoker. She used to drink on occasion but has not done so in many years. She denies ill
[2021-12-29] MEDS: HYDROcodone/acetaminophen (*CRX) 5-325 MG TABLET 1 TAB PO (14:13)
[2021-12-29 15:39] VITALS: BP 102/78; PULSE 77; RESP 18; O2SAT 98
--- NOTE | 2021-12-29 15:39 | PC.NURSE ---
Posterior long arm splint applied to right arm. Sling applied to right arm.
== END 2021-12-29 15:39 | disposition home or self-care (01) ==
PROVIDERS: Emergency Provider Emergency Medicine; PCP Family Medicine
DX: S00.03XA Contusion of scalp, initial encounter (principal); S42.411A Displaced simple supracondylar fracture without intercondylar fracture of right humerus, initial encounter for closed fracture; I25.10 Atherosclerotic heart disease of native coronary artery without angina pectoris; I10 Essential (primary) hypertension; K21.9 Gastro-esophageal reflux disease without esophagitis; M81.0 Age-related osteoporosis without current pathological fracture; Z95.5 Presence of coronary angioplasty implant and graft; Z79.82 Long term (current) use of aspirin; Z79.02 Long term (current) use of antithrombotics/antiplatelets; M47.812 Spondylosis without myelopathy or radiculopathy, cervical region; W01.198A Fall on same level from slipping, tripping and stumbling with subsequent striking against other object, initial encounter
CPT/HCPCS: 29105; 70450; 72125; 73080; 99284; A4565; A9270

== ENCOUNTER 2022-05-31 06:29 | Emergency (ER) | payer MEDICARE, SELFPAY ==
--- NOTE | ~2022-05-31 | CT_ITS ---
EXAMINATION: CT brain wo con DATE: 05/31/2022 07:23 INDICATION: Status post fall. Laceration to the head. TECHNIQUE: Computed tomography (CT) of the head was performed without intravenous contrast. The dose- length product was 529.67 mGy-cm. Automated exposure control and iterative reconstruction technique w ere employed. COMPARISON: CT dated 12/29/2021 FINDINGS: Brain parenchymal volume mildly decreased. There are scattered mild periventricular and sub cortical white matter changes, most likely related to small vessel ischemic disease (microangiopathy) . No ventriculomegaly or midline shift. Basilar cisterns are patent. There is intracranial atheroscle rosis. No acute intracranial hemorrhage, infarction, mass or mass effect. Paranasal sinuses are unrem arkable. Mastoids are pneumatized. No depressed skull fractures. IMPRESSION: 1. No acute intracranial abnormality. 2: Chronic age-related findings. Reviewed, dictated and finalized at location A.
--- NOTE | ~2022-05-31 | XR_ITS ---
[XR ribs LT 2V w CXR 2V ] INDICATION: Status post fall. Chest pain. TECHNIQUE: Frontal projection of the upper left ribs, frontal projection of the lower left ribs, obli que projection of all the left ribs, frontal inspiratory chest x-ray for interpretation. COMPARISON: 03/10/2021 FINDINGS: There are no displaced rib fractures identified. There is apical pleural thickening/scarri ng unchanged. There are no soft tissue abnormality seen. The lungs are clear. Mild thoracic spondyl osis with accentuated kyphosis. Demineralization limits evaluation for subtle fractures. IMPRESSION: 1:No acute displaced rib fractures. Reviewed, dictated and finalized at location A.
--- NOTE | ~2022-05-31 | CT_ITS ---
EXAMINATION: CT cervical spine wo con DATE: 05/31/2022 07:23 INDICATION: Status post fall. Head injury. TECHNIQUE: Computed tomography (CT) of the cervical spine was performed without intravenous contrast. The dose-length product was 100 mGy-cm. Automated exposure control and iterative reconstruction tech nique were employed. COMPARISON: CT dated 12/29/2021 FINDINGS: There is degenerative disc disease at C4-5, C5-6 and C6-7. There is degenerative anterolist hesis at C3-4 and C4-5. No evidence for perched facet. No acute fracture or traumatic malalignment. C raniovertebral junction is unremarkable. Lung apices are normal. There is carotid atherosclerosis. Od ontoid process is normal. Lateral masses normally aligned. There is facet and uncinate hypertrophy at most cervical levels. No significant paraspinal soft tissue abnormality. IMPRESSION: 1. No acute fracture. Reviewed, dictated and finalized at location A. IMPRESSION: 1. No acute fracture.
[2022-05-31 06:38] VITALS: BP 151/76; PULSE 80; RESP 18; TEMP 36.4; O2SAT 97
--- NOTE | 2022-05-31 07:17 | PC.NURSE ---
Pt denied LOC from fall and denies pain at this time.
[2022-05-31 07:52] VITALS: BP 141/64; PULSE 71; RESP 18; O2SAT 99
[2022-05-31 07:54] VITALS: O2SAT 99
--- NOTE | 2022-05-31 09:05 | ED.HEATRA ---
HPI - Head Injury General Chief complaint: Head Injury Stated complaint: fall, head injury Time Seen by Provider: 05/31/22 07:16 History of Present Illness HPI Narrative: Patient is an 81-year-old female who presents ER status post fall. Patient was getting out of bed to go the bathroom when she tripped and struck her head on the side of her bed. She suffered laceration to the back of her head. No LOC. She is on a baby aspirin and Brilinta. She is also reporting pain in the left upper back. No difficulty breathing or swallowing. No chest pain. Related Data Home Medications Medication Instructions Recorded Confirmed Centrum Silver Women 1 tablet PO DAILY 01/03/20 03/11/21 alendronate 70 mg tablet 70 mg PO WEEKLY 01/03/20 03/11/21 aspirin 81 mg chewable tablet 81 mg PO DAILY 01/03/20 03/11/21 atenolol 50 mg tablet 50 mg PO DAILY 01/03/20 03/11/21 calcium carbonate 500 mg calcium 500 mg PO DAILY 01/03/20 03/11/21 (1,250 mg) tablet (Calcium 500) echinacea 500 mg capsule 400 mg PO DAILY 01/03/20 03/11/21 losartan 50 mg tablet 50 mg PO DAILY 01/03/20 03/11/21 omega 0-qyw-bom-fish oil 1,000 mg 1 cap PO DAILY 01/03/20 03/11/21 (120 mg-180 mg) capsule (Fish Oil) protein (Boost High Protein oral 1 ea PO DAILY 01/03/20 03/11/21 powder) cholecalciferol (vitamin D3) 25 25 mcg PO DAILY 09/06/20 03/11/21 mcg (1,000 unit) capsule (Vitamin D3) pantoprazole 40 mg tablet,delayed 40 mg PO DAILY 09/06/20 03/11/21 release vitamin B complex (B 1 tablet PO DAILY 09/06/20 03/11/21 Complex-Vitamin B12 tablet) vitamin E 268 mg (400 unit) capsule 400 unit PO DAILY 09/06/20 03/11/21 Allergies Allergy/AdvReac Type Severity Reaction Status Date / Time rice Allergy Severe Swelling Verified 05/31/22 07:53 Review of Systems Review of Systems: All systems reviewed & are unremarkable except as noted in HPI and below Constitutional: Constitutional: Denies chills and Denies fever(s) ENT: Denies nasal congestion and Denies sore throat Cardiovascular: Cardiovascular: Denies chest pain, Denies rapid heart rate and Denies radiating jaw, neck or arm pain Respiratory: Respiratory: Denies cough and Denies dyspnea Gastrointestinal: Gastrointestinal: Denies abdominal pain, Denies nausea and Denies vomiting Integumentary/Breasts: Comments: Scalp laceration Neurologic: Denies syncope, Denies headache(s), Denies focal weakness and Denies numbness PMFSH Past Medical History Medical History Essential hypertension GERD (gastroesophageal reflux disease) Hemorrhoids Herpes zoster dermatitis 1993 Migraines Overflow stress urinary incontinence in female Post-menopausal osteoporosis Surgical History Surgical History History of appendectomy History of right knee surgery 1971 Hx of tonsillectomy S/P foot surgery, left Growth removed from left foot 1990 Family History Family History Father Acute myocardial infarction Sibling Heart disease Acute myocardial infarction Mother Hemochromatosis Cerebrovascular accident Leukemia Social History Social History Social History: She lives in 91-year-old who is moderate to severe dementia. She is primary caregiver. Her daughter lives next door. They have been for 31 years. She has 3 biologic children and 3 step children. Her children are all healthy. Her 59-year-old son does have some difficulty with prostate issues. 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 She is a lifelong nonsmoker. She used to drink on occasion but has not done so in many years. She denies illicit substance use. She ambulates with a cane. Primary care physician: Dr. Can Thomas Code status: Full code Surrogate decision maker: Althea bennett
[2022-05-31 09:40] VITALS: BP 137/54; PULSE 68; RESP 18; O2SAT 98
== END 2022-05-31 09:40 | disposition home or self-care (01) ==
PROVIDERS: Emergency Provider Emergency Medicine; PCP Family Medicine
DX: S01.01XA Laceration without foreign body of scalp, initial encounter (principal); S29.9XXA Unspecified injury of thorax, initial encounter; I10 Essential (primary) hypertension; N39.490 Overflow incontinence; K21.9 Gastro-esophageal reflux disease without esophagitis; M81.0 Age-related osteoporosis without current pathological fracture; Z79.82 Long term (current) use of aspirin; Z79.02 Long term (current) use of antithrombotics/antiplatelets; W01.0XXA Fall on same level from slipping, tripping and stumbling without subsequent striking against object, initial encounter
CPT/HCPCS: 12001; 70450; 71046; 71100; 72125; 99284

== ENCOUNTER 2023-03-19 10:59 | Inpatient (IN) | payer MEDICARE, MEDICAID, SELFPAY ==
[2023-03-19] VITALS (20 sets, daily range): BP systolic 97–138; BP diastolic 60–89; PULSE 90–119; RESP 15–39; TEMP 36.2–38.1; O2SAT 94; BMI 20.7
--- NOTE | ~2023-03-19 | XR_ITS ---
EXAMINATION: XR chest 1V portable DATE: 03/19/2023 12:47 INDICATION: Fever. Hypertension. TECHNIQUE: frontal view of the chest was obtained. COMPARISON: Chest radiograph dated 05/31/2022 FINDINGS: Patient is rotated slightly towards the right. Biapical pleural-parenchymal scarring. There is linear discoid atelectasis/scarring at the and right midlung zone. No pulmonary edema, pleural effusion or pneumothorax. Heart size is normal. Tortuous and atherosclerotic thoracic aorta. Moderate thoracic sp ondylosis. IMPRESSION: 1. Mild biapical pleural-parenchymal scarring and mild discoid atelectasis in the right midlung zone. Reviewed, dictated and finalized at location A. IMPRESSION: 1. Mild biapical pleural-parenchymal scarring and mild discoid atelectasis in t he right midlung zone.
--- NOTE | ~2023-03-19 | CT_ITS ---
EXAMINATION: CT brain wo con DATE: 03/23/2023 09:32 INDICATION: Altered mental status. TECHNIQUE: Computed tomography (CT) of the head was performed without intravenous contrast. The mA wa s adjusted according to patient size. Iterative reconstruction technique was employed. The dose-lengt h product was 605.33 mGy-cm. COMPARISON: Head CT 05/31/2022 FINDINGS: There is no intracranial hemorrhage, acute infarction, or abnormal intracranial mass lesion . There is an old lacunar infarct in right caudate nucleus. There are scattered areas of low attenuat ion in the cerebral white matter, which is within normal limits for the patient's age. The ventricles are normal in size. The orbits are normal. There is mild mucosal thickening in the ethmoid sinuses. The mastoid air cells are normal. There is cerumen in the external auditory canals. IMPRESSION: 1. Old lacunar infarct in right caudate nucleus. Reviewed, dictated and finalized at location A.
--- NOTE | ~2023-03-19 | US_ITS ---
EXAMINATION: US renal BI DATE: 03/21/2023 13:23 INDICATION: Worsening urinary tract infection. Elevated creatinine. TECHNIQUE: Multiple ultrasound grayscale images of the kidneys were obtained. COMPARISON: CT abdomen and pelvis 10/10/2021 FINDINGS: The right kidney measures 10.1 x 4.4 x 4.1 cm. The left kidney measures 8.6 x 4.5 x 3.7 cm. The kidne ys demonstrate normal parenchymal echogenicity. There is no hydronephrosis. The bladder is normal. IMPRESSION: 1. Mild atrophy of left kidney. No hydronephrosis. Reviewed, dictated and finalized at location A.
--- NOTE | 2023-03-19 11:35 | ECG_ITS ---
Measurements Intervals [place] Rate: 117 P: 55 MD: 136 QRS: 48 QRSD: 86 T: 12 QT: 288 QTc: 403 Interpretive Statements SINUS TACHYCARDIA NONSPECIFIC ST & T-WAVE ABNORMALITY ABNORMAL RHYTHM ECG COMPARED TO ECG 09/10/2020 11:43:02 INCREASED HEART RATE NO OTHER CHANGE Electronically Signed On 03-19-2023 16:02:13 CDT by Kevin Sifuentes M.D.
[2023-03-19 12:06] LABS: Basophils Percent Auto 0.1 % (0.2-1.2); Hematocrit 34.9 % (37.0-47.0); Hemoglobin 11.1 g/dL (12.0-15.0); Immature Granulocyte Absolute 0.06 K/mm3 (0.00-0.031); Immature Granulocyte Percent A 0.5 % (0-0.5); Lymphocytes Absolute Auto 2.22 K/mm3 (0.9-3.2); Lymphocytes Percent Auto 19.4 % (18.3-44.2); Mean Corpuscular HGB Conc 31.8 g/dl (32-36); Mean Corpuscular Hemoglobin 29.7 pg (26-34); Mean Corpuscular Volume 93.3 fl (80-100); Mean Platelet Volume 10.2 fl (7.4-10.4); Monocytes Absolute Auto 1.2 K/mm3 (0.1-0.6); Monocytes Percent Auto 10.1 % (2.6-8.5); Neutrophils Percent Auto 69.9 % (45.5-73.1); Platelet Count Result 238 k/mm3 (150-375); Red Blood Count 3.74 M/mm3 (4.2-5.4); Red Cell Distribution Width 13.2 % (11.5-14.5); White Blood Count 11.5 K/mm3 (4.5-10.0)
[2023-03-19] MEDS: ACETAMINOPHEN 325 MG TABLET 650 MG PO ×2 (12:16→16:39)
[2023-03-19] MEDS: SODIUM CHLORIDE 0.9% IV 1,000 ML 999 ML IV CONT (12:16)
[2023-03-19 12:17] LABS: Lactic Acid Reflex 1.5 mmol/L (0.7-2.0)
[2023-03-19 12:18] LABS: INR 1.1; Prothrombin Time 14.4 Seconds (11.1-14.7)
[2023-03-19 12:19] LABS: Partial Thromboplastin Time 27.7 SECONDS (22.3-36.8)
[2023-03-19 12:21] LABS: Alanine Aminotransferase 25 U/L (6-35); Albumin Level 4.3 g/dL (3.5-5.1); Alkaline Phosphatase 54 U/L (38-126); Anion Gap 5 mmol/L (8-16); Aspartate Amino Transferase 32 U/L (14-36); Bilirubin,Total 0.5 mg/dL (0.2-1.3); Blood Urea Nitrogen 32 mg/dL (7-17); CRP < 0.5 mg/dL (<1.0); Calcium 8.7 mg/dL (8.4-10.2); Carbon Dioxide 31 mmol/L (22-30); Chloride 98 mmol/L (98-107); Estimated CRCL calculation 23 ml/min; Estimated Glomerular Filt Rate 39; Glucose 115 mg/dL (65-110); Potassium 4.3 mmol/L (3.4-5.0); Sodium 134 mmol/L (137-145)
[2023-03-19 12:41] LABS: Influenza A QL RT-PCR Negative (Negative); Influenza B QL RT-PCR Negative (Negative); SARS-CoV-2 RNA PCR Negative (Negative)
[2023-03-19 12:42] LABS: Appearance Urine Cloudy (Clear); Bacteria Urine 4+ /hpf; Bilirubin Urine Negative (Negative); Blood Urine Negative (Negative); Color Urine Yellow (Yellow); Glucose Urine UA Negative (Negative); Ketones Urine Negative (Negative); Leukocyte Esterase Ur 2+ LEU/UL (Negative); Nitrate Urine Positive (Negative); Non Pathogenic Casts 0-2; Protein Urine Trace mg/dL (Negative); Specific Grav Ur 1.017 (1.001-1.035); Squamous Epithelial Cell Urine Occasional /hpf (Few); Urobilinogen Urine 0.2 mg/dL (<2.0); WBC Urine 21-50 /hpf
[2023-03-19 12:44] LABS: Add Urine Microscopic? YES
--- NOTE | 2023-03-19 13:55 | ED.FEVER ---
HPI - Fever General Chief Complaint: Fever Stated Complaint: fever and confusion since yesterday Time Seen by Provider: 03/19/23 11:03 Source: patient, family (daughter) and RN notes reviewed Mode of arrival: ambulatory History of Present Illness HPI Narrative: This is an 82 year old female who presents from home with daughter for evaluation of fever. She reports last night patient told her she did not feel well. She states patient had fever of 100 F and she took aspirin and Tylenol. Her daughter also states she found patient with runny nose. She also reports this morning patient was initially fine but later she reports patient was confused and her fever returned. She is unsure if patient took additional Tylenol or if she took her morning medication. Patient is alert and oriented x 3. She denies any complaints. She denies nausea, vomiting, abdominal pain, chest pain , cough, shortness of breath, weakness, headache, sore throat. Related Data Home Medications Medication Instructions Recorded Confirmed Centrum Silver Women 1 tablet PO DAILY 01/03/20 03/19/23 aspirin 81 mg chewable tablet 81 mg PO DAILY 01/03/20 03/19/23 omega 1-ins-yos-fish oil 1,000 mg 1 cap PO DAILY 01/03/20 03/19/23 (120 mg-180 mg) capsule (Fish Oil) cholecalciferol (vitamin D3) 25 25 mcg PO DAILY 09/06/20 03/19/23 mcg (1,000 unit) capsule (Vitamin D3) vitamin B complex (B 1 tablet PO DAILY 09/06/20 03/19/23 Complex-Vitamin B12 tablet) acetaminophen 500 mg capsule 500 mg PO Q6H PRN Pain (Scale 10/02/22 03/19/23 Score 1-3) Allergies Allergy/AdvReac Type Severity Reaction Status Date / Time rice Allergy Severe Swelling Verified 03/19/23 11:01 Review of Systems Constitutional: Constitutional: Reports fever(s) and Reports weakness ENT: Reports nasal congestion Cardiovascular: Cardiovascular: Denies syncope, Denies rapid heart rate, Denies irregular heart rhythm, Denies leg edema and Denies dyspnea Respiratory: Respiratory: Denies chest congestion, Denies hemoptysis, Denies excessive phlegm production and Denies dyspnea Gastrointestinal: Gastrointestinal: Denies abdominal pain, Denies hematochezia, Denies diarrhea and Denies vomiting Genitourinary: Genitourinary: Denies hematuria and Denies dysuria Musculoskeletal: Musculoskeletal: Denies joint swelling, Denies loss of height and Denies muscle weakness Neurologic: Denies syncope, Denies focal weakness and Denies weakness PMFSH Past Medical History Medical History Age-related osteoporosis without current pathological fracture Atherosclerosis of aorta Atherosclerotic heart disease of [place] coronary artery without angina pectoris Bronchiectasis with (acute) exacerbation Carotid atherosclerosis Chronic kidney disease, stage 3a Chronic kidney disease, stage 3b Emphysema, unspecified GERD (gastroesophageal reflux disease) Hemorrhoids Herpes zoster dermatitis 1993 Hypertensive chronic kidney disease with stage 1 through stage 4 chronic kidney disease, or unspecified chronic kidney disease Non-ST elevated myocardial infarction (non-STEMI) Old myocardial infarction Overflow stress urinary incontinence in female Pneumonia Renal mass Tachycardia, unspecified Surgical History Surgical History History of appendectomy History of right knee surgery 1971 Hx of tonsillectomy Peripheral vascular angioplasty status with implants and grafts S/P foot surgery, left Growth removed from left foot 1990 Family History Family History Father Acute myocardial infarction Sibling Heart disease Acute myocardial infarction Mother Hemochromatosis Cerebrovascular accident Leukemia Social History Social History Smoking status: Never smoker Second hand tobacco smoke exposure: N
--- NOTE | 2023-03-19 16:01 | ADMGEN ---
This patient, Cora Lamar, was admitted to 3 Med Surg Room 307-01 @ 1530. Patient/family oriented to hospital policies and general routines including ID bracelet, bed and alarms, visiting hours, pain management, procedures, bathroom and other care routines, personal items, smoking policy, room service/diet, and visiting hours. Information on how to activate the Rapid Response Team has been discussed. Patient/Family are encouraged to report perceived risks to care and to ask questions if they do not understand what they are told or what they should do.
[2023-03-19] MEDS: SODIUM CHLORIDE 0.9% IV 1,000 ML 125 ML IV CONT (16:39)
--- NOTE | 2023-03-19 17:22 | PM.IMHP ---
H&P: HPI History of Present Illness Date/Time: 03/19/23 14:10 Chief Complaint: Fever and confusion. Narrative: This is an 82-year-old female with hypertension, hyperlipidemia, coronary artery disease status post stent, chronic kidney disease, and anemia who presented to the emergency department via private vehicle from home for evaluation of fever and confusion. The patient provides the following history. Her daughter Althea provides additional information with the patient's permission. Several days ago she had loose stools, took Imodium, and that has since resolved. Yesterday she started to feel weak, was a bit confused, and she began running a low-grade temperature in the afternoon. She was still feeling unwell today with a higher temperature and she was brought in for evaluation. She denies headache, sinus congestion, sore throat, cough, nausea, vomiting, dysuria, abdominal pain, back pain, and diarrhea today. She was tachycardic to 119, tachypneic, and had a temperature of 100.6? F on arrival with stable blood pressures. Labs in the ED were significant for a WBC count of 11.5, BUN 32, creatinine 1.30. UA was nitrate and leukocyte esterase positive with 21-50 WBC, and 4+ bacteria. She received a liter bolus of normal saline and 1 gram of ceftriaxone in the ED and she is being admitted in this setting for further treatment and and close monitoring. Review of Systems Review of Systems: Twelve systems were reviewed and are negative except for as per HPI. [facility] Past Medical History Medical History (Updated 03/19/23 @ 21:35 by Anh Del Real PA-C) Age-related osteoporosis without current pathological fracture Atherosclerosis of aorta Atherosclerotic heart disease of [place] coronary artery without angina pectoris Bronchiectasis Carotid atherosclerosis Chronic kidney disease, stage 3 Emphysema, unspecified Gastroesophageal reflux disease Hemorrhoids Herpes zoster dermatitis (1993) Non-ST elevated myocardial infarction (non-STEMI) 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 History of appendectomy History of foot surgery (1990) Benign growth removed from left foot. History of right knee surgery (1971) History of tonsillectomy Family History Family History Father Acute myocardial infarction Sibling Heart disease Acute myocardial infarction Mother Hemochromatosis Cerebrovascular accident Leukemia Social History Social History (Updated 03/19/23 @ 21:25 by Anh Del Real PA-C) Social History: Surrogate medical decision maker: Althea Tapia, daughter. Code status: Full code. Smoking status: Never smoker Second hand tobacco smoke exposure: No Alcohol intake: never Substance use: never Substance use type: does not use Lack of Transportation: No Lack of Food: Never True Current Housing: I Have Housing Concerned About Future Housing: No Difficulty Paying Gas/Electric Bills: No Difficulty Paying for Meds: No Currently Unemployed: YES Education: Don't Know Difficulty w/ Childcare or Family Care: No Living arrangements: alone Additional living arrangements comments: Patient lives in her own home. Daughter lives next door. Occupation/Education: retired Spiritual care concerns: No Meds Home Medications and Allergies Home Medications Medication Instructions Recorded Confirmed Type Centrum Silver Women 1 tablet PO DAILY 01/03/20 03/19/23 History aspirin 81 mg chewable tablet 81 mg PO DAILY 01/03/20 03/19/23 History omega 2-btg-uxi-fish oil 1,000 mg 1 cap PO DAILY 01/03/20 03/19/23 History (120 mg-180 mg) capsule (Fish Oil) cholecalciferol (vitamin D3) 25 25 mcg PO DAILY 09/06/20 03/19/23 History mcg (1,000 unit) capsule (Vitamin D
[2023-03-20] VITALS (12 sets, daily range): BP systolic 149–152; BP diastolic 68–73; PULSE 96–110; RESP 15–16; TEMP 37.2–38.8; O2SAT 91–96
[2023-03-20] MEDS: ACETAMINOPHEN 500 MG TABLET PO ×3 (00:23→14:20)
[2023-03-20] MEDS: SODIUM CHLORIDE 0.9% IV 1,000 ML 125 ML IV CONT (01:06)
[2023-03-20 06:11] LABS: Basophils Percent Auto 0.3 % (0.2-1.2); Eosinophils Percent Auto 0.2 % (0-4.4); Hematocrit 31.2 % (37.0-47.0); Hemoglobin 10.3 g/dL (12.0-15.0); Immature Granulocyte Absolute 0.08 K/mm3 (0.00-0.031); Immature Granulocyte Percent A 0.7 % (0-0.5); Lymphocytes Absolute Auto 2.56 K/mm3 (0.9-3.2); Lymphocytes Percent Auto 22.3 % (18.3-44.2); Mean Corpuscular Hemoglobin 30.5 pg (26-34); Mean Corpuscular Volume 92.3 fl (80-100); Mean Platelet Volume 10.4 fl (7.4-10.4); Monocytes Absolute Auto 1.3 K/mm3 (0.1-0.6); Monocytes Percent Auto 11.1 % (2.6-8.5); Neutrophils Absolute Auto 7.5 K/mm3 (1.3-6.7); Neutrophils Percent Auto 65.4 % (45.5-73.1); Platelet Count Result 199 k/mm3 (150-375); Red Blood Count 3.38 M/mm3 (4.2-5.4); Red Cell Distribution Width 12.9 % (11.5-14.5); White Blood Count 11.5 K/mm3 (4.5-10.0)
[2023-03-20 06:29] LABS: Alanine Aminotransferase 20 U/L (6-35); Albumin Level 3.2 g/dL (3.5-5.1); Alkaline Phosphatase 43 U/L (38-126); Anion Gap 2 mmol/L (8-16); Aspartate Amino Transferase 29 U/L (14-36); Bilirubin,Total 0.4 mg/dL (0.2-1.3); Blood Urea Nitrogen 24 mg/dL (7-17); Calcium 7.5 mg/dL (8.4-10.2); Carbon Dioxide 24 mmol/L (22-30); Chloride 102 mmol/L (98-107); Estimated CRCL calculation 27 ml/min; Estimated Glomerular Filt Rate 47; Glucose 100 mg/dL (65-110); Potassium 3.4 mmol/L (3.4-5.0); Sodium 128 mmol/L (137-145)
[2023-03-20] MEDS: OMEGA 3 POLYUNSAT FATTY ACIDS 1 GM CAP PO (08:16)
[2023-03-20] MEDS: CHOLECALCIFEROL 1,000 UNITS TABLET 1000 UNITS PO (08:17)
[2023-03-20] MEDS: MULTIVITAMINS THERAPEUTIC TAB (*BKC) 1 TABLET PO (08:17)
[2023-03-20] MEDS: ASPIRIN 81 MG CHEWABLE TABLET PO (08:17)
[2023-03-20] MEDS: VITAMIN B COMPLEX CAPSULE 1 CAP PO (08:17)
[2023-03-20] MEDS: METOPROLOL SUCCINATE EXT REL 50 MG TABCR PO (08:17)
[2023-03-20] MEDS: ROSUVASTATIN 5 MG TABLET PO (08:18)
--- NOTE | 2023-03-20 13:37 | PM.IMPN ---
Progress Note: A&P Assessment and Plan (1) Urinary tract infection: Code(s): N39.0 - Urinary tract infection, site not specified Status: Acute Assessment and Plan: The patient has evidence of urinary tract infection She has been started on ceftriaxone, pending urine culture. Adjust antibiotics to culture results Blood cultures no growth to date. (2) Chronic kidney disease, stage 3: Code(s): N18.30 - Chronic kidney disease, stage 3 unspecified Status: Acute Assessment and Plan: Kidney function is stable on review of previous labs. (3) Tachycardia: Code(s): R00.0 - Tachycardia, unspecified Status: Acute Assessment and Plan: She is tachycardic but that seems to be a chronic finding for the patient in fact she is on metoprolol for that at home. Subjective Date/time seen: 03/20/23 13:37 Interval history: Patient mildly confused today. She has scattered thoughts and daughters at bedside stating that she is ?a little off today . She is oriented to person, place and although she is not completely sure as to why she was brought into the hospital. She denies any nausea, vomiting abdominal pain. She does not have any dysuria or urinary frequency. Daughter states that she is completely independent at home and she lives next door to her. Exam Narrative: GENERAL: Comfortable, no acute distress HENMT: moist mucous membranes EYES: EOM intact b/l NECK: no lymphadenopathy RESPIRATORY: clear to auscultation CARDIO: RRR GI: soft, nontender, bowel sounds present SKIN: no rashes EXTREMITIES: no edema, redness or tenderness Objective Data Vital Signs Vital Signs: Vital Signs - 24 hr 03/19/23 13:45 03/19/23 14:31 03/19/23 14:59 Temperature 99.5 F Pulse Rate 108 H 106 H Respiratory Rate 32 H 22 H Blood Pressure Pulse Oximetry Oxygen Delivery 03/19/23 16:28 03/19/23 15:30 03/19/23 21:44 Temperature 97.8 F 97.2 F L Pulse Rate 113 H 101 H Respiratory Rate 18 15 Blood Pressure 125/75 138/62 Pulse Oximetry 94 94 Oxygen Delivery Room Air 03/20/23 00:23 03/20/23 01:23 03/19/23 20:00 Temperature 100.9 F H 101.9 F H Pulse Rate 90 Respiratory Rate Blood Pressure Pulse Oximetry Oxygen Delivery 03/20/23 03:12 03/20/23 04:00 03/20/23 05:41 Temperature 99.4 F 99.2 F Pulse Rate 105 H 107 H Respiratory Rate 16 Blood Pressure 151/68 H Pulse Oximetry 91 Oxygen Delivery 03/20/23 08:17 03/20/23 08:00 Temperature Pulse Rate 110 H Respiratory Rate Blood Pressure Pulse Oximetry Oxygen Delivery Room Air Intake/Output Intake/Output: Intake & Output 03/17/23 03/18/23 03/19/23 03/20/23 23:59 23:59 23:59 23:59 Intake Total 1420 2860 Balance 1420 2860 Meds/Results Medications: Active Medications Generic Name Dose Route Start Last Admin Trade Name Freq PRN Reason Stop Dose Admin Acetaminophen 500 mg 03/19/23 21:38 03/20/23 08:19 Acetaminophen 500 Mg Tablet PO 500 mg Q6H PRN Administration Pain (Scale Score 1-3) Aspirin 81 mg 03/20/23 09:00 03/20/23 08:17 Aspirin 81 Mg Chewable Tablet PO 81 mg DAILY TAMARA Administration Fish Oil 1 gm 03/20/23 09:00 03/20/23 08:16 [place] 3 Polyunsat Fatty Acids 1 Gm Cap PO 1 gm DAILY TAMARA Administration Ceftriaxone Sodium 1 gm in 50 mls @ 100 mls/hr 03/20/23 14:00 03/20/23 13:30 Rocephin 1 Gm/Ns 50 Ml IVPB 100 mls/hr Q24H TAMARA Administration Metoprolol Succinate 50 mg 03/20/23 09:00 03/20/23 08:17 Metoprolol Succinate Ext Rel 50 Mg Tabcr PO 50 mg DAILY TAMARA Administration Multivitamins Therapeutic 1 tablet 03/20/23 09:00 03/20/23 08:17 Multivitamins Therapeutic Tab (*Bkc) PO 1 tablet QAM TAMARA Administration Ondansetron HCl 4 mg 03/19/23 13:52 Ondansetron Inj 4 Mg/2 Ml Vial IV PUSH Q4H PRN Nausea Rosuvastatin Calcium 5 mg 03/20/23
--- NOTE | 2023-03-20 16:05 | PC.NURSE ---
Althea, the daughter, stated that her mom, the patient, was complaining that her wedding ring felt like it was getting tight. Althea is taking the wedding ring home.
[2023-03-21] VITALS (13 sets, daily range): BP systolic 124–139; BP diastolic 63–72; PULSE 78–109; RESP 16–18; TEMP 36.2–38.4; O2SAT 92–98
[2023-03-21] MEDS: ACETAMINOPHEN 500 MG TABLET PO ×3 (02:16→14:41)
[2023-03-21 06:35] LABS: Basophils Percent Auto 0.3 % (0.2-1.2); Eosinophils Absolute Auto 0.1 K/mm3 (0-0.3); Eosinophils Percent Auto 0.7 % (0-4.4); Hematocrit 31.3 % (37.0-47.0); Hemoglobin 10.4 g/dL (12.0-15.0); Immature Granulocyte Absolute 0.04 K/mm3 (0.00-0.031); Immature Granulocyte Percent A 0.4 % (0-0.5); Lymphocytes Absolute Auto 2.04 K/mm3 (0.9-3.2); Mean Corpuscular HGB Conc 33.2 g/dl (32-36); Mean Corpuscular Hemoglobin 30.1 pg (26-34); Mean Corpuscular Volume 90.5 fl (80-100); Mean Platelet Volume 10.4 fl (7.4-10.4); Monocytes Absolute Auto 1.3 K/mm3 (0.1-0.6); Monocytes Percent Auto 12.1 % (2.6-8.5); Neutrophils Absolute Auto 7.3 K/mm3 (1.3-6.7); Neutrophils Percent Auto 67.5 % (45.5-73.1); Platelet Count Result 190 k/mm3 (150-375); Red Blood Count 3.46 M/mm3 (4.2-5.4); Red Cell Distribution Width 12.5 % (11.5-14.5); White Blood Count 10.8 K/mm3 (4.5-10.0)
[2023-03-21 06:47] LABS: Alanine Aminotransferase 23 U/L (6-35); Albumin Level 3.4 g/dL (3.5-5.1); Alkaline Phosphatase 45 U/L (38-126); Anion Gap 7 mmol/L (8-16); Aspartate Amino Transferase 39 U/L (14-36); Bilirubin,Total 0.5 mg/dL (0.2-1.3); Blood Urea Nitrogen 17 mg/dL (7-17); Calcium 7.8 mg/dL (8.4-10.2); Carbon Dioxide 25 mmol/L (22-30); Chloride 98 mmol/L (98-107); Estimated CRCL calculation 30 ml/min; Estimated Glomerular Filt Rate 53; Glucose 101 mg/dL (65-110); Potassium 3.2 mmol/L (3.4-5.0); Sodium 130 mmol/L (137-145)
[2023-03-21] MEDS: POTASSIUM CHLORIDE 20 MEQ PACKET (FOR LIQUID) 40 MEQ PO (07:56)
[2023-03-21] MEDS: CHOLECALCIFEROL 1,000 UNITS TABLET 1000 UNITS PO (07:57)
[2023-03-21] MEDS: ROSUVASTATIN 5 MG TABLET PO (07:57)
[2023-03-21] MEDS: VITAMIN B COMPLEX CAPSULE 1 CAP PO (07:57)
[2023-03-21] MEDS: METOPROLOL SUCCINATE EXT REL 50 MG TABCR PO (07:57)
[2023-03-21] MEDS: MULTIVITAMINS THERAPEUTIC TAB (*BKC) 1 TABLET PO (07:57)
[2023-03-21] MEDS: OMEGA 3 POLYUNSAT FATTY ACIDS 1 GM CAP PO (07:57)
[2023-03-21] MEDS: ASPIRIN 81 MG CHEWABLE TABLET PO (07:58)
--- NOTE | 2023-03-21 12:44 | PM.IMPN ---
Progress Note: A&P Assessment and Plan (1) Urinary tract infection: Code(s): N39.0 - Urinary tract infection, site not specified Status: Acute Assessment and Plan: The patient has evidence of urinary tract infection She has been started on ceftriaxone Culture positive for E. Coli sensitive to Ceftriaxone. Ceftriaxone increased to 2 g due to worsening symptoms. Blood cultures no growth to date. (2) Chronic kidney disease, stage 3: Code(s): N18.30 - Chronic kidney disease, stage 3 unspecified Status: Chronic Assessment and Plan: Kidney function is stable on review of previous labs. (3) Tachycardia: Code(s): R00.0 - Tachycardia, unspecified Status: Chronic Assessment and Plan: She is tachycardic but that seems to be a chronic finding for the patient in fact she is on metoprolol for that at home. Subjective Date/time seen: 03/21/23 12:44 Interval history: Patient was febrile overnight was given Tylenol. Originally thought patient was on the right antibiotic therapy but Rocephin was sensitive. Increased Rocephin to 2 g due to patient continuing to have altered mental status and fever. Fever peaked to 101.1. Patient denies any pain. She was straight cathed and found to have 375 in the bladder. If patient continues to retain home will put Perrin catheter in. Exam Narrative: GENERAL: Comfortable, no acute distress HENMT: moist mucous membranes EYES: EOM intact b/l NECK: no lymphadenopathy RESPIRATORY: clear to auscultation CARDIO: RRR GI: soft, nontender, bowel sounds present SKIN: no rashes EXTREMITIES: no edema, redness or tenderness Objective Data Vital Signs Vital Signs: Vital Signs - 24 hr 03/20/23 14:00 03/20/23 16:00 03/20/23 21:41 Temperature 98.9 F 99.2 F Pulse Rate 100 96 96 Respiratory Rate 16 15 Blood Pressure 149/70 H 152/73 H Pulse Oximetry 92 96 03/20/23 20:08 03/21/23 00:00 03/21/23 02:16 Temperature 100.3 F H Pulse Rate 102 H 109 H Respiratory Rate Blood Pressure Pulse Oximetry 03/21/23 03:18 03/21/23 04:00 03/21/23 04:58 Temperature 100.0 F H 101.1 F H Pulse Rate 107 H 98 Respiratory Rate 16 Blood Pressure 124/63 Pulse Oximetry 92 03/21/23 05:13 03/21/23 07:57 Temperature 98.0 F Pulse Rate 97 Respiratory Rate Blood Pressure Pulse Oximetry Intake/Output Intake/Output: Intake & Output 03/18/23 03/19/23 03/20/23 03/21/23 23:59 23:59 23:59 23:59 Intake Total 1420 3030 990 Output Total 950 Balance 1420 3030 40 Meds/Results Medications: Active Medications Generic Name Dose Route Start Last Admin Trade Name Freq PRN Reason Stop Dose Admin Acetaminophen 500 mg 03/19/23 21:38 03/21/23 07:57 Acetaminophen 500 Mg Tablet PO 500 mg Q6H PRN Administration Pain (Scale Score 1-3) Aspirin 81 mg 03/20/23 09:00 03/21/23 07:58 Aspirin 81 Mg Chewable Tablet PO 81 mg DAILY TAMARA Administration Fish Oil 1 gm 03/20/23 09:00 03/21/23 07:57 [place] 3 Polyunsat Fatty Acids 1 Gm Cap PO 1 gm DAILY TAMARA Administration Ceftriaxone Sodium 2 gm in 100 mls @ 200 mls/hr 03/21/23 14:00 Rocephin 2 Gm/Ns 100 Ml IVPB Q24H TAMARA Metoprolol Succinate 50 mg 03/20/23 09:00 03/21/23 07:57 Metoprolol Succinate Ext Rel 50 Mg Tabcr PO 50 mg DAILY TAMARA Administration Multivitamins Therapeutic 1 tablet 03/20/23 09:00 03/21/23 07:57 Multivitamins Therapeutic Tab (*Bkc) PO 1 tablet QAM TAMARA Administration Ondansetron HCl 4 mg 03/19/23 13:52 Ondansetron Inj 4 Mg/2 Ml Vial IV PUSH Q4H PRN Nausea Rosuvastatin Calcium 5 mg 03/20/23 09:00 03/21/23 07:57 Rosuvastatin 5 Mg Tablet PO 5 mg DAILY TAMARA Administration Vitamin B Complex 1 cap 03/20/23 09:00 03/21/23 07:57 Vitamin B Complex Capsule PO 1 cap DAILY TAMARA Administration Vitamin D 1,000 units 03/20/23 09:00 08
[2023-03-21] MEDS: cefTRIAXone 2 GM/NS 100 ML 2 GM/100 ML BAG IVPB (14:41)
[2023-03-22] VITALS (9 sets, daily range): BP systolic 121–144; BP diastolic 60–72; PULSE 92–114; RESP 16; TEMP 36.7–37.1; O2SAT 94–96
[2023-03-22 07:04] LABS: Basophils Percent Auto 0.3 % (0.2-1.2); Eosinophils Absolute Auto 0.1 K/mm3 (0-0.3); Eosinophils Percent Auto 0.4 % (0-4.4); Hematocrit 35.3 % (37.0-47.0); Hemoglobin 11.7 g/dL (12.0-15.0); Immature Granulocyte Absolute 0.07 K/mm3 (0.00-0.031); Immature Granulocyte Percent A 0.6 % (0-0.5); Lymphocytes Absolute Auto 1.57 K/mm3 (0.9-3.2); Lymphocytes Percent Auto 13.4 % (18.3-44.2); Mean Corpuscular HGB Conc 33.1 g/dl (32-36); Mean Corpuscular Hemoglobin 30.1 pg (26-34); Mean Corpuscular Volume 90.7 fl (80-100); Mean Platelet Volume 10.7 fl (7.4-10.4); Monocytes Absolute Auto 1.2 K/mm3 (0.1-0.6); Monocytes Percent Auto 10.2 % (2.6-8.5); Neutrophils Absolute Auto 8.8 K/mm3 (1.3-6.7); Neutrophils Percent Auto 75.1 % (45.5-73.1); Platelet Count Result 228 k/mm3 (150-375); Red Blood Count 3.89 M/mm3 (4.2-5.4); Red Cell Distribution Width 12.9 % (11.5-14.5); White Blood Count 11.7 K/mm3 (4.5-10.0)
[2023-03-22 07:16] LABS: Alanine Aminotransferase 24 U/L (6-35); Albumin Level 3.6 g/dL (3.5-5.1); Alkaline Phosphatase 53 U/L (38-126); Anion Gap 5 mmol/L (8-16); Aspartate Amino Transferase 35 U/L (14-36); Bilirubin,Total 0.4 mg/dL (0.2-1.3); Blood Urea Nitrogen 15 mg/dL (7-17); Calcium 8.3 mg/dL (8.4-10.2); Carbon Dioxide 23 mmol/L (22-30); Chloride 99 mmol/L (98-107); Estimated CRCL calculation 33 ml/min; Estimated Glomerular Filt Rate 60; Glucose 104 mg/dL (65-110); Potassium 3.7 mmol/L (3.4-5.0); Sodium 127 mmol/L (137-145)
[2023-03-22] MEDS: METOPROLOL SUCCINATE EXT REL 50 MG TABCR PO (08:48)
[2023-03-22] MEDS: OMEGA 3 POLYUNSAT FATTY ACIDS 1 GM CAP PO (08:49)
[2023-03-22] MEDS: ASPIRIN 81 MG CHEWABLE TABLET PO (08:49)
[2023-03-22] MEDS: ROSUVASTATIN 5 MG TABLET PO (08:49)
[2023-03-22] MEDS: CHOLECALCIFEROL 1,000 UNITS TABLET 1000 UNITS PO (08:49)
[2023-03-22] MEDS: MULTIVITAMINS THERAPEUTIC TAB (*BKC) 1 TABLET PO (08:49)
[2023-03-22] MEDS: VITAMIN B COMPLEX CAPSULE 1 CAP PO (08:49)
[2023-03-22] MEDS: PIPERACILLIN/TAZ 2.25G/NS 50ML 2.25 GM/50 ML BAG IVPB ×2 (13:45→19:14)
--- NOTE | 2023-03-22 13:49 | PM.IMPN ---
Progress Note: A&P Assessment and Plan (1) Urinary tract infection: Code(s): N39.0 - Urinary tract infection, site not specified Status: Acute Assessment and Plan: The patient has evidence of urinary tract infection She has been started on ceftriaxone Culture positive for E. Coli. After discussing with ID pharm, will transition to Zosyn due to patient not improving on Rocephin. Blood cultures no growth to date. (2) Chronic kidney disease, stage 3: Code(s): N18.30 - Chronic kidney disease, stage 3 unspecified Status: Chronic Assessment and Plan: Kidney function is stable on review of previous labs. (3) Tachycardia: Code(s): R00.0 - Tachycardia, unspecified Status: Chronic Assessment and Plan: She is tachycardic but that seems to be a chronic finding for the patient in fact she is on metoprolol for that at home. Subjective Date/time seen: 03/22/23 13:49 Interval history: Patient appears to be doing much better today. She is up in the bed with her neighbor at bedside. Patient gave permission did discuss medical care in front of her friend. Patient was alert oriented to person place and time but unknown as to why she is in the hospital. She seemed to be doing better today. Denies any nausea, vomiting, pain, dysuria, lightheadedness or dizziness. Due to patient being in bed for so long PT and OT ordered for possible rehab after hospitalization. Exam Narrative: GENERAL: Comfortable, no acute distress HENMT: moist mucous membranes EYES: EOM intact b/l NECK: no lymphadenopathy RESPIRATORY: clear to auscultation CARDIO: RRR GI: soft, nontender, bowel sounds present SKIN: no rashes EXTREMITIES: no edema, redness or tenderness Objective Data Vital Signs Vital Signs: Vital Signs - 24 hr 03/21/23 14:00 03/21/23 16:00 03/21/23 20:00 Temperature 98.9 F Pulse Rate 79 78 78 Respiratory Rate 18 18 Blood Pressure 126/71 Pulse Oximetry 93 93 Oxygen Delivery Room Air 03/21/23 20:00 03/21/23 22:00 03/22/23 00:00 Temperature 97.2 F L Pulse Rate 82 89 94 Respiratory Rate 16 Blood Pressure 139/72 Pulse Oximetry 98 Oxygen Delivery 03/22/23 04:00 03/22/23 06:00 03/22/23 08:48 Temperature 98.8 F Pulse Rate 114 H 102 H 108 H Respiratory Rate 16 Blood Pressure 144/65 H Pulse Oximetry 94 Oxygen Delivery 03/22/23 11:27 Temperature Pulse Rate Respiratory Rate Blood Pressure Pulse Oximetry Oxygen Delivery Room Air Intake/Output Intake/Output: Intake & Output 03/19/23 03/20/23 03/21/23 03/22/23 23:59 23:59 23:59 23:59 Intake Total 1420 3030 1260 240 Output Total 1725 1100 Balance 1420 3030 -322 -995 Meds/Results Medications: Active Medications Generic Name Dose Route Start Last Admin Trade Name Freq PRN Reason Stop Dose Admin Acetaminophen 500 mg 03/19/23 21:38 03/21/23 14:41 Acetaminophen 500 Mg Tablet PO 500 mg Q6H PRN Administration Pain (Scale Score 1-3) Aspirin 81 mg 03/20/23 09:00 03/22/23 08:49 Aspirin 81 Mg Chewable Tablet PO 81 mg DAILY TAMARA Administration Fish Oil 1 gm 03/20/23 09:00 03/22/23 08:49 [place] 3 Polyunsat Fatty Acids 1 Gm Cap PO 1 gm DAILY TAMARA Administration Piperacillin Sod/Tazobactam Sod 2.25 gm in 50 mls @ 100 mls/hr 03/22/23 12:00 Zosyn 2.25 Gm/Ns 50 Ml IVPB Q6HR TAMARA Metoprolol Succinate 50 mg 03/20/23 09:00 03/22/23 08:48 Metoprolol Succinate Ext Rel 50 Mg Tabcr PO 50 mg DAILY TAMARA Administration Multivitamins Therapeutic 1 tablet 03/20/23 09:00 03/22/23 08:49 Multivitamins Therapeutic Tab (*Bkc) PO 1 tablet QAM TAMARA Administration Ondansetron HCl 4 mg 03/19/23 13:52 Ondansetron Inj 4 Mg/2 Ml Vial IV PUSH Q4H PRN Nausea Rosuvastatin Calcium 5 mg 03/20/23 09:00 03/22/23 08:49 Rosuvastatin 5 Mg Tablet PO 5 mg DAILY TAMARA Administration V
--- NOTE | 2023-03-22 15:31 | PCOTNOTE ---
Attempted to see pt. for occupational therapy evaluation. Pt. sleeping soundly and returned to sleep immediately after attempt to arouse. Daughter present and nursing aware. Will attempt with pt. alert. Following.
[2023-03-22] MEDS: ACETAMINOPHEN 500 MG TABLET PO (21:20)
[2023-03-23] VITALS (10 sets, daily range): BP systolic 106–143; BP diastolic 54–65; PULSE 88–104; RESP 16–18; TEMP 36.2–36.7; O2SAT 95–100
[2023-03-23] MEDS: PIPERACILLIN/TAZ 2.25G/NS 50ML 2.25 GM/50 ML BAG IVPB ×5 (00:38→23:31)
[2023-03-23] MEDS: ACETAMINOPHEN 500 MG TABLET PO ×2 (04:22→10:19)
[2023-03-23 06:23] LABS: Basophils Percent Auto 0.2 % (0.2-1.2); Eosinophils Absolute Auto 0.1 K/mm3 (0-0.3); Eosinophils Percent Auto 0.6 % (0-4.4); Hematocrit 32.9 % (37.0-47.0); Hemoglobin 10.6 g/dL (12.0-15.0); Immature Granulocyte Percent A 0.8 % (0-0.5); Lymphocytes Absolute Auto 1.61 K/mm3 (0.9-3.2); Mean Corpuscular HGB Conc 32.2 g/dl (32-36); Mean Corpuscular Hemoglobin 29.4 pg (26-34); Mean Corpuscular Volume 91.4 fl (80-100); Mean Platelet Volume 10.9 fl (7.4-10.4); Monocytes Absolute Auto 1.5 K/mm3 (0.1-0.6); Monocytes Percent Auto 12.3 % (2.6-8.5); Neutrophils Absolute Auto 9.1 K/mm3 (1.3-6.7); Neutrophils Percent Auto 73.1 % (45.5-73.1); Platelet Count Result 233 k/mm3 (150-375); Red Cell Distribution Width 12.9 % (11.5-14.5); White Blood Count 12.4 K/mm3 (4.5-10.0)
[2023-03-23 06:34] LABS: Alanine Aminotransferase 21 U/L (6-35); Albumin Level 3.4 g/dL (3.5-5.1); Alkaline Phosphatase 50 U/L (38-126); Anion Gap 4 mmol/L (8-16); Aspartate Amino Transferase 30 U/L (14-36); Bilirubin,Total 0.7 mg/dL (0.2-1.3); Blood Urea Nitrogen 14 mg/dL (7-17); Calcium 8.2 mg/dL (8.4-10.2); Carbon Dioxide 24 mmol/L (22-30); Chloride 98 mmol/L (98-107); Estimated CRCL calculation 30 ml/min; Estimated Glomerular Filt Rate 53; Glucose 110 mg/dL (65-110); Potassium 3.4 mmol/L (3.4-5.0); Sodium 126 mmol/L (137-145)
[2023-03-23] MEDS: METOPROLOL SUCCINATE EXT REL 50 MG TABCR PO (09:02)
[2023-03-23] MEDS: ROSUVASTATIN 5 MG TABLET PO (09:02)
[2023-03-23] MEDS: MULTIVITAMINS THERAPEUTIC TAB (*BKC) 1 TABLET PO (09:02)
[2023-03-23] MEDS: VITAMIN B COMPLEX CAPSULE 1 CAP PO (09:02)
[2023-03-23] MEDS: CHOLECALCIFEROL 1,000 UNITS TABLET 1000 UNITS PO (09:06)
[2023-03-23] MEDS: OMEGA 3 POLYUNSAT FATTY ACIDS 1 GM CAP PO (09:06)
[2023-03-23] MEDS: ASPIRIN 81 MG CHEWABLE TABLET PO (09:07)
[2023-03-23] MEDS: SODIUM CHLORIDE 0.9% IV 1,000 ML 100 ML IV CONT (09:07)
--- NOTE | 2023-03-23 14:29 | PM.IMPN ---
Progress Note: A&P Assessment and Plan (1) Urinary tract infection: Code(s): N39.0 - Urinary tract infection, site not specified Status: Acute Assessment and Plan: The patient has evidence of urinary tract infection She has been started on ceftriaxone Culture positive for E. Coli. After discussing with ID pharm, will transition to Zosyn due to patient not improving on Rocephin. Blood cultures no growth to date. PT and OT consulted and recommended SNF. (2) Chronic kidney disease, stage 3: Code(s): N18.30 - Chronic kidney disease, stage 3 unspecified Status: Chronic Assessment and Plan: Kidney function is stable on review of previous labs. (3) Tachycardia: Code(s): R00.0 - Tachycardia, unspecified Status: Chronic Assessment and Plan: She is tachycardic but that seems to be a chronic finding for the patient in fact she is on metoprolol for that at home. Subjective Date/time seen: 03/23/23 14:29 Interval history: Patient doing much better today and is more alert. She was up to the chair and she continues to do well with PT and OT. PT and OT both recommending sniff and placement is pending. She most likely can be discharge once accepted to facility. Exam Narrative: GENERAL: Comfortable, no acute distress HENMT: moist mucous membranes EYES: EOM intact b/l RESPIRATORY: clear to auscultation CARDIO: RRR GI: soft, nontender, bowel sounds present SKIN: no rashes EXTREMITIES: no edema, redness or tenderness Objective Data Vital Signs Vital Signs: Vital Signs - 24 hr 03/22/23 16:00 03/22/23 20:00 03/22/23 20:50 Temperature 98.7 F Pulse Rate 102 H 92 Respiratory Rate 16 Blood Pressure 122/60 Pulse Oximetry 96 Oxygen Delivery Room Air 03/22/23 20:00 03/23/23 00:00 03/23/23 04:16 Temperature 98.1 F Pulse Rate 93 89 104 H Respiratory Rate 18 Blood Pressure 122/60 Pulse Oximetry 95 Oxygen Delivery 03/23/23 04:00 03/23/23 09:02 03/23/23 08:00 Temperature Pulse Rate 98 100 94 Respiratory Rate Blood Pressure Pulse Oximetry Oxygen Delivery 03/23/23 12:00 03/23/23 14:00 Temperature 98.1 F Pulse Rate 96 91 Respiratory Rate 16 Blood Pressure 106/54 L Pulse Oximetry 100 Oxygen Delivery Intake/Output Intake/Output: Intake & Output 03/20/23 03/21/23 03/22/23 03/23/23 23:59 23:59 23:59 23:59 Intake Total 3030 1260 860 390 Output Total 1725 1550 950 Balance 6910 -465 -690 -560 Meds/Results Medications: Active Medications Generic Name Dose Route Start Last Admin Trade Name Freq PRN Reason Stop Dose Admin Acetaminophen 500 mg 03/19/23 21:38 03/23/23 10:19 Acetaminophen 500 Mg Tablet PO 500 mg Q6H PRN Administration Pain (Scale Score 1-3) Aspirin 81 mg 03/20/23 09:00 03/23/23 09:07 Aspirin 81 Mg Chewable Tablet PO 81 mg DAILY TAMARA Administration Fish Oil 1 gm 03/20/23 09:00 03/23/23 09:06 [place] 3 Polyunsat Fatty Acids 1 Gm Cap PO 1 gm DAILY TAMARA Administration Piperacillin Sod/Tazobactam Sod 2.25 gm in 50 mls @ 100 mls/hr 03/22/23 12:00 03/23/23 11:29 Zosyn 2.25 Gm/Ns 50 Ml IVPB Infused Q6HR TAMARA Infusion Sodium Chloride 1,000 mls @ 100 mls/hr 03/23/23 08:20 03/23/23 09:07 Normal Saline Iv IV CONT 03/23/23 18:19 100 mls/hr .Q10H ONE Administration Metoprolol Succinate 50 mg 03/20/23 09:00 03/23/23 09:02 Metoprolol Succinate Ext Rel 50 Mg Tabcr PO 50 mg DAILY TAMARA Administration Multivitamins Therapeutic 1 tablet 03/20/23 09:00 03/23/23 09:02 Multivitamins Therapeutic Tab (*Bkc) PO 1 tablet QAM TAMARA Administration Ondansetron HCl 4 mg 03/19/23 13:52 Ondansetron Inj 4 Mg/2 Ml Vial IV PUSH Q4H PRN Nausea Rosuvastatin Calcium 5 mg 03/20/23 09:00 03/23/23 09:02 Rosuvastatin 5 Mg Tablet PO 5 mg DAILY TAMARA Administration Vitamin B Complex 1 cap
[2023-03-24 05:29] VITALS: BP 129/74; PULSE 102; RESP 14; TEMP 36.1; O2SAT 95
[2023-03-24] MEDS: PIPERACILLIN/TAZ 2.25G/NS 50ML 2.25 GM/50 ML BAG IVPB (05:40)
[2023-03-24] MEDS: ASPIRIN 81 MG CHEWABLE TABLET PO (08:31)
[2023-03-24] MEDS: ROSUVASTATIN 5 MG TABLET PO (08:31)
[2023-03-24] MEDS: CHOLECALCIFEROL 1,000 UNITS TABLET 1000 UNITS PO (08:31)
[2023-03-24] MEDS: MULTIVITAMINS THERAPEUTIC TAB (*BKC) 1 TABLET PO (08:31)
[2023-03-24] MEDS: METOPROLOL SUCCINATE EXT REL 50 MG TABCR PO (08:31)
[2023-03-24] MEDS: VITAMIN B COMPLEX CAPSULE 1 CAP PO (08:31)
[2023-03-24] MEDS: OMEGA 3 POLYUNSAT FATTY ACIDS 1 GM CAP PO (08:32)
[2023-03-24 09:09] VITALS: O2SAT 94
--- NOTE | 2023-03-24 11:22 | PM.DS ---
DS: Admitting Diagnosis Discharge Date 03/24/2023 Admitting Diagnosis Urinary tract infection CKD stage 3 Tachycardia DS: Discharge Diagnosis Discharge Diagnosis (1) Urinary tract infection: Code(s): N39.0 - Urinary tract infection, site not specified Status: Acute (2) Chronic kidney disease, stage 3: Code(s): N18.30 - Chronic kidney disease, stage 3 unspecified Status: Chronic (3) Tachycardia: Code(s): R00.0 - Tachycardia, unspecified Status: Chronic DS: Summary Hospital Course Reason for hospitalization: This is an 82-year-old female patient who was admitted to the hospital with findings of urinary tract infection, tachycardia, fever and confusion. Hospital Course: Patient was admitted on IV antibiotics. Urinary culture showed E coli resistant only to Bactrim. Patient had been on ceftriaxone daily but not improving. Antibiotics were switched to Zosyn. Patient is still having some difficulty ambulating around that she attributes to generalized weakness. Her confusion improved this still remains somewhat present. She has a history of chronic tachycardia this never resolved. She does not have fever is tolerating a diet well. She was accepted to [facility] for SNF/rehab. Patient discharged with Augmentin prescription. Status at Discharge Cognitive/behavioral status at discharge: awake, alert, mostly oriented, very pleasant Functional status at discharge: uses cane/walker Overall status at discharge: patient is progressing back to baseline Time Spent with Patient Time attestation: Total time spent providing and/or coordinating discharge services: Time spent: Greater than 30 minutes Exam Narrative: GENERAL: Comfortable, no acute distress HENMT: moist mucous membranes EYES: EOM intact b/l RESPIRATORY: clear to auscultation CARDIO: borderline tachycardia, regular rhythm GI: soft, nontender, bowel sounds present SKIN: no rashes EXTREMITIES: no edema, redness or tenderness DS: Data Data Completed and Pending Completed studies during hospitalization: Chest x-ray, renal ultrasound, head CT Labs on day of discharge: Preliminary micro results at discharge 03/19/23 13:51 Blood Culture - Preliminary Blood 03/19/23 11:58 Blood Culture - Preliminary Blood Discharge Plan Discharge Attending physician on discharge: Alida Henderson Consulting providers: Romulo Burkett Discharging Clinician: Romulo Burkett Anticipated Discharge Date/Time: 03/24/23 16:00 Patient Disposition: SNF Activity: as tolerated Diet: regular Discharge Instructions: Activity--ambulate with walker, use bedside commode for now, may follow PT/OT recommendations as orders. PT/OT Eval/treat and make activity recommendations. Diet: Regular, recommend supplements as well Medications: per med rec which is home list with add Augmentin 875/125 BID for 10 doses starting night dose tonight. Patient Instructions: Aspirin (By mouth), Urinary Tract Infection in Older Adults (DC) Stand Alone Forms: General Discharge Information, Correction Discharge Follow-up/Referrals: Can Thomas MD [Primary Care Provider] - Call for Appointment (Hospital discharge follow up) Discharge Medications: New amoxicillin-pot clavulanate 875-125 mg tablet 1 tablet PO Q12H Qty: 10 0RF Continued acetaminophen 500 mg capsule 500 mg PO Q6H PRN (Reason: Pain (Scale Score 1-3)) rosuvastatin 5 mg tablet 5 mg PO DAILY Qty: 90 1RF metoprolol succinate 50 mg tablet extended release 24 hr 50 mg PO DAILY Qty: 90 1RF aspirin 81 mg Tablet,Chewable 81 mg PO DAILY omega 0-qwa-fal-fish oil [Fish Oil] 1,000 mg (120 mg-180 mg) Capsule 1 cap PO DAILY Centrum Silver Women 1 tablet PO DAILY cholecalciferol (vitamin D3) [Vitamin D3] 25 mcg (1,000 unit) Capsule 25 mcg PO DAILY vitamin B complex [B Complex-Vitamin B12] Tablet 1 tablet PO D
[2023-03-24] MEDS: AMOXICILLIN/CLAVULANATE K 875-125 MG TAB 1 TABLET PO (13:00)
[2023-03-24 13:41] VITALS: BP 121/63; PULSE 99; RESP 16; TEMP 36.9; O2SAT 100
[2023-03-24 16:08] LABS: SARS-CoV-2 RNA PCR Negative (Negative)
== END 2023-03-24 16:25 | DRG 690 ==
LOC: ANHED 14:04 → ANH3MEDSUR 15:16
PROVIDERS: Internal Medicine Critical Care Medicine; Admitting Provider Internal Medicine; Emergency Provider General Practice; PCP Family Medicine; Visit Provider Nurse Practitioner
DX: N39.0 Urinary tract infection, site not specified (principal); I12.9 Hypertensive chronic kidney disease with stage 1 through stage 4 chronic kidney disease, or unspecified chronic kidney disease; N18.32 Chronic kidney disease, stage 3b; I70.0 Atherosclerosis of aorta; I25.10 Atherosclerotic heart disease of native coronary artery without angina pectoris; I65.29 Occlusion and stenosis of unspecified carotid artery; I83.93 Asymptomatic varicose veins of bilateral lower extremities; J43.9 Emphysema, unspecified; K21.9 Gastro-esophageal reflux disease without esophagitis; E78.5 Hyperlipidemia, unspecified; R00.0 Tachycardia, unspecified; M81.0 Age-related osteoporosis without current pathological fracture; B96.20 Unspecified Escherichia coli [E. coli] as the cause of diseases classified elsewhere; I25.2 Old myocardial infarction; Z20.822 Contact with and (suspected) exposure to COVID-19; Z95.820 Peripheral vascular angioplasty status with implants and grafts; Z79.82 Long term (current) use of aspirin
CPT/HCPCS: 36415; 70450; 71045; 76775; 80053; 81001; 83605; 85025; 85610; 85730; 86140; 87040; 87077; 87086; 87186; 87635; 87636; 93005; 96361; 96375; 97110; 97116; 97161; 97165; 97530; 97535; 99285; A9270; G0378; J0696; J2543; J7030

== ENCOUNTER 2023-06-11 09:36 | Outpatient (CLI) | payer MEDICARE, MEDICAID, SELFPAY | END 2023-06-11 09:37 | disposition home or self-care (01) | LOC: ANHAUDIO 09:36 | PROVIDERS: PCP Family Medicine; Visit Provider Family Medicine | DX: H90.3 Sensorineural hearing loss, bilateral (principal) | CPT/HCPCS: 92557; 92567 ==

== ENCOUNTER 2023-07-06 07:00 | Emergency (ER) | payer MEDICARE, MEDICAID, SELFPAY ==
--- NOTE | ~2023-07-06 | CT_ITS ---
EXAMINATION: CT brain wo con INDICATION: Head injury COMPARISON: None TECHNIQUE: Standard unenhanced head CT. The dose-length product (DLP) was 605.33 mGy-cm. The mA was a djusted according to patient size. Iterative reconstruction technique was employed. FINDINGS: No acute intraparenchymal hemorrhage. No evidence of mass lesion. No evidence of acute infa rction. There is mild periventricular and subcortical hypodensity probably related to small vessel is chemic disease. There is mild prominence of the sulci and ventricles related to cerebral atrophy. Int racranial calcified cerebral atherosclerosis is noted. No extra-axial collections. No mass effect or midline shift. The orbits and soft tissues are unremarkable. The visualized sinuses and mastoid air c ells are well aerated. IMPRESSION: 1. No acute intracranial abnormality. 2. Age related findings. Reviewed, dictated and finalized at location A. [facility]
[2023-07-06 07:07] VITALS: BP 161/85; PULSE 95; RESP 16; TEMP 36.2; O2SAT 98
[2023-07-06 07:15] VITALS: BP 162/76; PULSE 83; RESP 19; O2SAT 99
--- NOTE | 2023-07-06 07:25 | ED.FALL ---
HPI - Fall General Chief Complaint: Fall Stated Complaint: fall Time Seen by Provider: 07/06/23 07:16 History of Present Illness HPI Narrative: 82-year-old female presenting to the emergency department for evaluation after having a fall from bed. Patient reports she had just gotten back into the bed after using the restroom when she was rolling around and trying to get comfortable and she was to come to the aid to bed causing her to roll off. Patient states she did strike her head on a bedside stool but denies any loss of consciousness. Patient reports that she did have some blurred vision but states that this lasted just a brief time and her vision is back to normal. Patient denies any other pain or injury. Patient denies any focal numbness or weakness. Related Data Home Medications Medication Instructions Recorded Confirmed Centrum Silver Women 1 tablet PO DAILY 01/03/20 04/23/23 aspirin 81 mg chewable tablet 81 mg PO DAILY 01/03/20 04/23/23 omega 9-gqz-usp-fish oil 1,000 mg 1 cap PO DAILY 01/03/20 04/23/23 (120 mg-180 mg) capsule (Fish Oil) vitamin B complex (B 1 tablet PO DAILY 09/06/20 04/23/23 Complex-Vitamin B12 tablet) acetaminophen 500 mg capsule 500 mg PO Q6H PRN Pain (Scale 10/02/22 04/23/23 Score 1-3) calcium carbonate 600 mg-vitamin 1 tablet PO DAILY 04/23/23 04/23/23 D3 10 mcg (400 unit) tablet (Calcium 600 + D(3)) Allergies Allergy/AdvReac Type Severity Reaction Status Date / Time rice Allergy Severe Swelling Verified 04/23/23 14:04 Review of Systems Review of Systems: All systems reviewed & are unremarkable except as noted in HPI and below [facility] Past Medical History Medical History (Updated 07/06/23 @ 08:29 by Julian Tatum MD) Age-related osteoporosis without current pathological fracture Atherosclerosis of aorta Atherosclerotic heart disease of [place] coronary artery without angina pectoris Bronchiectasis Carotid atherosclerosis Chronic kidney disease, stage 3 Emphysema, unspecified Gastroesophageal reflux disease Hemorrhoids Herpes zoster dermatitis (1993) Non-ST elevated myocardial infarction (non-STEMI) 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 History of appendectomy History of foot surgery (1990) Benign growth removed from left foot. History of right knee surgery (1971) History of tonsillectomy Family History Family History Father Acute myocardial infarction Sibling Heart disease Acute myocardial infarction Mother Hemochromatosis Cerebrovascular accident Leukemia Social History Social History (Updated 03/19/23 @ 21:25 by Anh Del Real PA-C) Social History: Surrogate medical decision maker: Althea Tapia, daughter. Code status: Full code. Smoking status: Never smoker Second hand tobacco smoke exposure: No Alcohol intake: never Substance use: never Substance use type: does not use Lack of Transportation: No Lack of Food: Never True Current Housing: I Have Housing Concerned About Future Housing: No Difficulty Paying Gas/Electric Bills: No Difficulty Paying for Meds: No Currently Unemployed: YES Education: Don't Know Difficulty w/ Childcare or Family Care: No Living arrangements: alone Additional living arrangements comments: Patient lives in her own home. Daughter lives next door. Occupation/Education: retired Spiritual care concerns: No Exam Narrative: APPEARANCE: Well appearing, no pain, no distress, well-nourished. HEAD: normocephalic, atraumatic. EYES: PERRLA/EOMI, conjunctivae clear. Visual albarran intact NOSE: Normal no drainage EARS:TMS clear with good light reflex. THROAT: Pharynx clear, no exudate. NECK: Supple. No adenopathy, no masses. RESPIRATORY:
[2023-07-06 07:31] VITALS: BP 144/78; PULSE 86; RESP 16; O2SAT 99
[2023-07-06 08:45] VITALS: BP 150/62; PULSE 74; RESP 16; O2SAT 98
[2023-07-06 09:21] VITALS: TEMP 36.8
== END 2023-07-06 09:35 | disposition home or self-care (01) ==
PROVIDERS: Emergency Provider Emergency Medicine; PCP Family Medicine
DX: S09.90XA Unspecified injury of head, initial encounter (principal); I70.0 Atherosclerosis of aorta; I25.10 Atherosclerotic heart disease of native coronary artery without angina pectoris; I25.2 Old myocardial infarction; N18.30 Chronic kidney disease, stage 3 unspecified; J43.9 Emphysema, unspecified; K21.9 Gastro-esophageal reflux disease without esophagitis; M81.0 Age-related osteoporosis without current pathological fracture; N39.490 Overflow incontinence; Z95.5 Presence of coronary angioplasty implant and graft; Z79.82 Long term (current) use of aspirin; W06.XXXA Fall from bed, initial encounter
CPT/HCPCS: 70450; 99284

== ENCOUNTER 2023-09-28 14:30 | Emergency (ER) | payer MEDICARE, SELFPAY ==
--- NOTE | ~2023-09-28 | XR_ITS ---
EXAMINATION: XR chest 1V portable Exam Date/Time: 09/28/2023 17:55 COMPENSATION VICE PRESIDENT HISTORY: cough, covid+ Comparison: 03/19/2023. RESULT: Lines, tubes, and devices: None. Lungs and pleura: Biapical pleural scarring. Stable right upper lobe nodular opacity. Senescent/emph ysematous changes. No focal consolidation, pneumothorax, or effusion. Cardiomediastinal silhouette: Stable. Other: No acute osseous or upper abdominal finding. IMPRESSION: No acute cardiopulmonary process. Reviewed, dictated and finalized at location K. ENSATION VICE PRESIDENT
[2023-09-28 14:43] VITALS: BP 130/63; PULSE 98; RESP 20; TEMP 36.3; O2SAT 97
[2023-09-28 15:32] LABS: Influenza A QL RT-PCR Negative (Negative); Influenza B QL RT-PCR Negative (Negative); RSV RNA, RT-PCR Negative (Negative); SARS-CoV-2 RNA PCR Positive (Negative)
--- NOTE | 2023-09-28 17:47 | ED.URI ---
HPI - URI/Sore Throat General Chief Complaint: Upper Respiratory Infection Stated Complaint: Fever, tired coughing Time Seen by Provider: 09/28/23 17:54 Source: patient Mode of arrival: ambulatory Limitations: no limitations History of Present Illness HPI Narrative: Patient is an 83 y/o female who presents to the ED with c/o URI sx's. Daughter at bedside field administrative assistant providing information. Daughter reports she tested positive for COVID-19 on 09/17. Patient then developed a dry cough over the last couple of days. Last night she reportedly had a fever up to 100.5 degree F. She was given Tylenol by her daughter at that time. Daughter then decided to bring her here for further evaluation. Patient is unsure if she is vaccinated for COVID. She denies any chest pain, shortness of breath, nausea, vomiting, abdominal pain, hemoptysis, lower extremity pain or swelling, dizziness, lightheadedness. States her cough is just bothersome. Related Data Home Medications Medication Instructions Recorded Confirmed Centrum Silver Women 1 tablet PO DAILY 01/03/20 07/16/23 aspirin 81 mg chewable tablet 81 mg PO DAILY 01/03/20 07/16/23 omega 5-oms-nux-fish oil 1,000 mg 1 cap PO DAILY 01/03/20 07/16/23 (120 mg-180 mg) capsule (Fish Oil) vitamin B complex (B 1 tablet PO DAILY 09/06/20 07/16/23 Complex-Vitamin B12 tablet) acetaminophen 500 mg capsule 500 mg PO Q6H PRN Pain (Scale 10/02/22 07/16/23 Score 1-3) calcium carbonate 600 mg-vitamin 1 tablet PO DAILY 04/23/23 07/16/23 D3 10 mcg (400 unit) tablet (Calcium 600 + D(3)) dextromethorphan HBr 15 mg/5 mL 30 mg PO QHS 07/16/23 07/16/23 oral liquid (Tussin Cough (DM only)) Allergies Allergy/AdvReac Type Severity Reaction Status Date / Time rice Allergy Severe Swelling Verified 07/16/23 13:50 Review of Systems Review of Systems: CONSTITUTIONAL: See HPI. CARDIOVASCULAR: Denies chest pain, palpitations, or edema. RESPIRATORY: See HPI. GASTROINTESTINAL: Denies abdominal pain, nausea, vomiting, or diarrhea. NEUROLOGIC: Denies headache, dizziness, numbness, or weakness. 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 History of appendectomy History of foot surgery (1990) Benign growth removed from left foot. History of right knee surgery (1971) History of tonsillectomy Family History Family History Father Acute myocardial infarction Sibling Heart disease Acute myocardial infarction Mother Hemochromatosis Cerebrovascular accident Leukemia Social History Social History Social History: Surrogate medical decision maker: Althea Tapia, daughter. Code status: Full code. Smoking status: Never smoker Second hand tobacco smoke exposure: No Alcohol intake: never Substance use: never Substance use type: does not use Lack of Transportation: No Lack of Food: Never True Current Housing: I Have Housing Concerned About Future Housing: No Difficulty Paying Gas/Electric Bills: No Difficulty Paying for Meds: No Currently Unemployed: YES Education: Don't Know Difficulty
[2023-09-28 17:50] VITALS: BP 144/90; PULSE 90; RESP 17; TEMP 36.6; O2SAT 97
[2023-09-28 17:51] VITALS: O2SAT 98
[2023-09-28 18:19] VITALS: BP 141/82; PULSE 85; RESP 18; TEMP 36.6; O2SAT 99
== END 2023-09-28 18:21 | disposition home or self-care (01) ==
PROVIDERS: Preventive Medicine Aerospace Medicine; Emergency Provider Physician Assistant; PCP Family Medicine
DX: U07.1 COVID-19 (principal); N18.30 Chronic kidney disease, stage 3 unspecified; J43.9 Emphysema, unspecified; I25.10 Atherosclerotic heart disease of native coronary artery without angina pectoris
CPT/HCPCS: 71045; 87637; 99283

== ENCOUNTER 2024-03-16 14:18 | Emergency (ER) | payer MEDICARE, SELFPAY ==
--- NOTE | ~2024-03-16 | XR_ITS ---
XR elbow RT min 3V Ordering provider: Lev Robledo MD History: . right elbow h/o fx to 2 yrs ago, today woke-up w/ pain . Comparison: December 29, 2021 FINDINGS: BONES: Chronic fracture in the lumbar area is seen with deformity and pseudoarthrosis. JOINT SPACES: Dislocation is seen with deformity. SOFT TISSUES: Bony protrusion under the skin seen in the lateral aspect. IMPRESSION: Chronic fracture with dislocation, deformity and pseudoarthrosis.. Reviewed, dictated and finalized at location A.
[2024-03-16 14:21] VITALS: BP 170/86; PULSE 117; RESP 18; TEMP 36.4; O2SAT 99
--- NOTE | 2024-03-16 14:44 | PC.NURSE ---
Patient denies any recent falls. She states that she fell two years ago and fractured the right elbow. Patient is afraid she fractured it again. Describes the pain as grinding bone on bone.
[2024-03-16] MEDS: IBUPROFEN 400 MG TABLET PO (15:28)
--- NOTE | 2024-03-16 16:41 | ED.GENADULT ---
HPI - General Adult General Chief complaint: Extremity Injury, Upper Stated complaint: R arm pain Time Seen by Provider: 03/16/24 14:28 History of Present Illness HPI narrative: This is an 83-year-old female presenting with acute on chronic right arm pain. Patient sustained a supracondylar right arm fracture 2 years ago. She opted to go non operatively and had a poor result. This was all managed slough. starting 3 weeks ago she has noticed instability of the joint and increased pain. Pain improves with Motrin Tylenol. No weakness in the arm. Patient follows at [facility] Orthopedics. Related Data Home Medications Medication Instructions Recorded Confirmed Centrum Silver Women 1 tablet PO DAILY 01/03/20 10/04/23 aspirin 81 mg chewable tablet 81 mg PO DAILY 01/03/20 10/04/23 omega 8-kuq-wvv-fish oil 1,000 mg 1 cap PO DAILY 01/03/20 10/04/23 (120 mg-180 mg) capsule (Fish Oil) vitamin B complex (B 1 tablet PO DAILY 09/06/20 10/04/23 Complex-Vitamin B12 tablet) acetaminophen 500 mg capsule 500 mg PO Q6H PRN Pain (Scale 10/02/22 10/04/23 Score 1-3) calcium carbonate 600 mg-vitamin 1 tablet PO DAILY 04/23/23 10/04/23 D3 10 mcg (400 unit) tablet (Calcium 600 + D(3)) Allergies Allergy/AdvReac Type Severity Reaction Status Date / Time rice Allergy Severe Swelling Verified 10/04/23 10:13 [facility] Past Medical History Medical History Age-related osteoporosis without current pathological fracture Atherosclerosis of aorta Atherosclerotic heart disease of [place] coronary artery without angina pectoris Bronchiectasis Carotid atherosclerosis Cerebral atherosclerosis Chronic kidney disease, stage 3 Emphysema, unspecified Gastroesophageal reflux disease Hemorrhoids Herpes zoster dermatitis (1993) Non-ST elevated myocardial infarction (non-STEMI) Overflow stress urinary incontinence in female Renal mass Tachycardia Surgical History Surgical History History of angioplasty of peripheral vessel With stents. History of appendectomy History of foot surgery (1990) Benign growth removed from left foot. History of right knee surgery (1971) History of tonsillectomy Family History Family History Father Acute myocardial infarction Sibling Heart disease Acute myocardial infarction Mother Hemochromatosis Cerebrovascular accident Leukemia Social History Social History (Updated 10/04/23 @ 10:16 by Jessica Mcclelland MA) Social History: Surrogate medical decision maker: Althea Tapia, daughter. Code status: Full code. Smoking status: Never smoker Second hand tobacco smoke exposure: No Alcohol intake: never Substance use: never Substance use type: does not use Do You Feel Safe in your Home?: Yes Lack of Transportation: No Lack of Food: Never True Current Housing: I Have Housing Concerned About Future Housing: No Difficulty Paying Gas/Electric Bills: No Difficulty Paying for Meds: No Currently Unemployed: YES Education: Don't Know Difficulty w/ Childcare or Family Care: No Living arrangements: alone Additional living arrangements comments: Patient lives in her own home. Daughter lives next door. Occupation/Education: retired Gender identity (if verbalized by the patient): Female Sexual Orientation (if Verbalized by the Patient): Straight or Heterosexual Spiritual care concerns: No Exam Narrative: APPEARANCE: No apparent distress. Head: atraumatic. EYES: EOMI, NOSE: Atraumatic NECK: Trachea midline RESPIRATORY: No increased rate of breathing CARDIOVASCULAR: RRR, ABDOMINAL: Non-distended MUSCULOSKELETAl: Focal exam of the elbow revealed deformity without evidence of acute injury such as bruising or swelling. Limited range of motion at the elbow due to flexion/extension. NEURO: Alert. Moving 4/4 extremities SKIN
== END 2024-03-16 17:00 | disposition home or self-care (01) ==
PROVIDERS: Emergency Provider Emergency Medicine; PCP Family Medicine
DX: S42.40 Unspecified fracture of lower end of humerus (principal); I25.10 Atherosclerotic heart disease of native coronary artery without angina pectoris; K21.9 Gastro-esophageal reflux disease without esophagitis; N18.30 Chronic kidney disease, stage 3 unspecified; I25.2 Old myocardial infarction; X58.XXXA Exposure to other specified factors, initial encounter
CPT/HCPCS: 73080; 99283; A9270

== ENCOUNTER 2024-10-26 01:26 | Day surgery (SDC) | payer MEDICARE, SELFPAY ==
[2024-10-18 14:54] VITALS: BMI 21.7
--- OUTSIDE RECORDS SUMMARY | 2024-10-26 01:29 | XMS_ITS | Clinical Summary ---
Author [place] [facility] [place] [address] Address [address] [place] [address] Care Team Prov[address] Care Road Patcher Name Role Phone Can Thomas MD Primary Care Provider [phone] Allergies No known active allergies Medications Brilinta 90 mg tablet Take 90 mg by mouth every 12 (twelve) hours 09/10/[address] (PROTONIX) 40 mg EC tablet Take 40 mg by mouth daily 08/28/2020 Active omega 5-qbu-siu-fish oil (Fish Oil) 100-160-1,000 mg capsule Take by mouth Active folic acid/multivit-mi n/lutein (CENTRUM SILVER ORAL) Take by mouth Active vitamin B complex (B COMPLEX 1 ORAL) Take by mouth Active echinacea 400 mg capsule Take by mouth 2 (two) times a day Active calcium carbonate (CALCIUM 500 ORAL) Take by mouth Active aspirin 81 mg enteric coated tablet Take 81 mg by mouth daily Active vitamin E (vitamin E) 400 unit capsule Take 400 Units by mouth daily Active alendronate (FOSAMAX) 70 mg tablet Take 70 mg by mouth every 7 days Active rosuvastatin (CRESTOR) 20 mg tabletIndication s:Coronary artery disease involving [place] coronary artery of [place] heart without angina pectoris Take 1 tablet (20 mg total) by mouth daily 90 tablet 3 08/04/2021 Active atenoloL (TENORMIN) 50 mg tabletIndication s:Coronary artery disease involving [place] coronary artery of [place] heart without angina pectoris Take 1 tablet (50 mg total) by mouth daily 90 tablet 3 08/04/2021 Active losartan (COZAAR) 50 mg tabletIndication s:Coronary artery disease involving [place] coronary artery of [place] heart without angina pectoris Take 1 tablet (50 mg total) by mouth daily 90 tablet 3 08/04/2021 Active Active Problems Problem Noted Date Diagnosed Date Coronary artery disease invo lving [place] coronary artery of [place] heart without angina pectoris 12/17/2020 Surgical History Surgery Date Site/Laterality Comments CORONARY ANGIOPLASTY APPENDECTOMY KNEE SURGERY Right Medical History Medical History Date Comments Heart attack (HCC) Wears dentures Pneumonia Asthma Arthritis Appendicitis Family History Relation Name Status Comments Father (Age 62) Mother (Age 71) Sister (Age 81) Social History Tobacco Use Types Packs/Day Years Used Date Smoking Tobacco: Never Smokeless Tobacco: Never Alcohol Use Standard Drinks/Week Comments Not Currently 0 (1 standard drink = 0.6 oz pur e alcohol) Personal Safety Answer Date Recorded Getting School Help Needed Not on file 10/02 Comments Unknown Sex and Gender Information Value Date Recorded Sex Assigned at Not on file Legal Sex Female 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 Gender Identity Not on file Sexual Orientation Not on file Obstetrics History Last Filed Vital Signs Vital Sign Reading Time Taken Comments Blood Pressure 140/86 08/04/2021 1:25 PM NATIONAL SALES REPRESENTATIVE Pulse 122 08/04/2021 1:25 PM NATIONAL SALES REPRESENTATIVE Temperature - - Respiratory Rate - - Oxygen Saturation 98% 08/04/2021 1:25 PM NATIONAL SALES REPRESENTATIVE Inhaled Oxygen Concentration - - Weight 49.6 kg (109 lb 6.4 oz) 08/04/2021 1:25 P M NATIONAL SALES REPRESENTATIVE Height 157.5 cm (5' 2 ) 08/04/2021 1:25 PM NATIONAL SALES REPRESENTATIVE Body Mass Index 20.01 08/04/2021 1:25 PM NATIONAL SALES REPRESENTATIVE Plan of Treatment Not on file Insurance [facility] MDCR HMO REF [facility] Address: [facility] [address] [place] [address] Patcher Relationship Specialty Start Date End Date Can Thomas MD [address] [place] [id number] PCP - General Family Medicine 09/07/20
--- OUTSIDE RECORDS SUMMARY | 2024-10-26 01:29 | XMS_ITS | Referral Summary ---
Author Organization [facility] [place] [address] Address [address] [place] [address] Care Team Providers Care Crystal Flat Grinder Name Role Phone Can Thomas MD Primary Care Provider [phone] Allergies No known active allergies Medications Brilinta 90 mg tablet Take 90 mg by mouth every 12 (twelve) hours 09/10/[address] (PROTONIX) 40 mg EC tablet Take 40 mg by mouth daily 08/28/2020 Active omega 1-gpn-nfd-fish oil (Fish Oil) 100-160-1,000 mg capsule Take [...] 20 mg tabletIndication s:Coronary artery disease involving [place] coronary artery of [place] heart without angina pectoris Take 1 tablet (20 mg total) by mouth daily 90 tablet 3 08/04/2021 Active atenoloL (TENORMIN) 50 mg tabletIndication s:Coronary artery disease involving [place] coronary artery of [place] heart without angina pectoris Take 1 tablet (50 mg total) by mouth daily 90 tablet 3 08/04/2021 Active losartan (COZAAR) 50 mg tabletIndication s:Coronary artery disease involving [place] coronary artery of [place] heart without angina pectoris Take 1 tablet (50 mg total) by mouth daily 90 tablet 3 08/04/2021 Active Active Problems Problem Noted Date Diagnosed Date Coronary artery disease invo lving [place] coronary artery of [place] heart without angina pectoris 12/17/2020 Social History Tobacco Use Types Packs/Day Years [...] on file Legal 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 Gender Identity Not on file Sexual Orientation Not on file Last Filed Vital Signs Vital Sign Reading Time Taken Comments Blood Pressure 140/86 08/04/2021 1:25 PM COMMISSIONED [employer]ICE OFFICER Pulse 122 08/04/2021 1:25 PM COMMISSIONED [employer]ICE OFFICER Temperature - - Respiratory Rate - - Oxygen Saturation 98% 08/04/2021 1:25 PM COMMISSIONED [employer]ICE OFFICER Inhaled Oxygen Concentration - - Weight 49.6 kg (109 lb 6.4 oz) 08/04/2021 1:25 P M COMM[employer] OFFICER Height 157.5 cm (5' 2 ) 08/04/2021 1:25 PM COMMISSIONED [employer]ICE OFFICER Body Mass Index 20.01 08/04/2021 1:25 PM COMMISSIONED [employer]ICE OFFICER Plan of Treatment Not on file Insurance [facility] MDCR HMO REF [facility] Address: [facility] [address] [place] [address] Care Teams Crystal Flat Grinder Relationship Specialty Start Date End Date Can Thomas MD [address] [place] [address] PCP - General Family Medicine 09/07/20
--- OUTSIDE RECORDS SUMMARY | 2024-10-26 01:29 | XMS_ITS | Clinical Summary ---
Author Organization [facility] Address [address] [place] [address] Care Team Providers Care Lead Pressman Name Role Phone Can Thomas MD Primary Care Provider Source Comments [email or web address],non-owned Affiliates and Associated Physician Practices is amultiple site organization consisting of ambulatory clinics and hospital sitesin [place], [place], [place] and [place]. This disclosure is being madepursuant to the Care Everywhere program and may not contain all information available regarding this patient. Last updated 18.[email or web address] Allergies No known active allergies Medications * Be aware that medications may not be up to date on this document. Alwaysverify current medications with the patient. Medication Sig Dispensed Refills Start Date End Date Status Calcium Carb-Cholecalciferol (CALCIUM 500 + D PO) Take by mouth A ctive Cobalamin Combinations (Vitamin K30-Uxpsa Acid) 500-400 MCG Take by mouth Acti ve aspirin EC (Ecotrin) 81 MG tablet Take 1 (one) tablet by mouth once daily Active metoprolol succinate XL 24hr (Toprol XL) 50 MG tablet Take 1 (one) tablet by mouth once daily 03/17/2024 Active rosuvastatin (Crestor) 20 MG tablet Take 1 (one) tablet by mouth once daily 03/27/2024 Active Hector-3 Fatty Acids (RA Fish Oil) 1000 MG Take by mouth Acti ve Vitamin E (Vitamin E/D-Alpha Natural) 268 MG (400 UNIT) capsule Take 1 (one) capsule by mouth once daily Active Active Problems Problem Noted Date Diagnosed Date Closed bicondylar fracture of distal end of righ t humerus 01/14/2022 Social History Tobacco Use Types Packs/Day Years Used Date Smoking Tobacco: Never Smokeless Tobacco: Never Alcohol Use Standard Drinks/Week Comments Never 0 (1 standard drink = 0.6 oz pur e alcohol) PHQ-2 Answer Date Recorded Patient Health Questionnaire-2 Score 1 05/10/2024 Sex and Gender Information Value Date Recorded Sex Assigned at Not on file Gender Identity Not on file Sexual Orientation Not on file Last Filed Vital Signs Vital Sign Reading Time Taken Comments Blood Pressure - - Pulse - - Temperature - - Respiratory Rate - - Oxygen Saturation - - Inhaled Oxygen Concentration - - Weight 53.5 kg (118 lb) 05/10/2024 1:12 PM CDT Height 158.8 cm (5' 2.5 ) 05/10/2024 1:12 PM CDT Body Mass Index 21.24 05/10/2024 1:12 PM CDT Plan of Treatment Health Maintenance Due Date Last Done Comments BONE DENSITY TESTING 1939 DTAP/TDAP/TD VACCINES (1 - Tdap) 1958 PNEUMOCOCCAL VACCINE 50+ (1 of 1 - PCV) 1989 ZOSTER VACCINE (1 of 2) 1989 Respiratory Syncytial Virus (RSV) Vaccine Pt: or over 60 yrs (1 - 1-dose 75+ series) 2014 COVID-19 VACCINE (2023-2 5 season) 2024 INFLUENZA VACCINE (#1) 2024 DEPRESSION SCREENING 08/02/2024 04/18/2024 MEDICARE AWV CALENDAR YEAR 2024 HEPATITIS B VACCINE Aged Out No longe r eligible based on patient's age to complete this topic HIB VACCINE Aged Out No longer eligi ble based on patient's age to complete this topic HPV VACCINE Aged Out No longer eligi ble based on patient's age to complete this topic MENINGOCOCCAL (Group B) VACC INE SHARED DECISION-MAKING Aged Out No longer eligibl e based on patient's age to complete this topic MENINGOCOCCAL GROUPS A/C/Y/W VACCINE Aged Out No longer eligible b ased on patient's age to complete this topic Care Teams Lead Pressman Relationship Specialty Start Date End Date Can Thomas MD [address] [place] [id number] PCP - General 01/14/22
[2024-10-26 09:32] VITALS: BP 156/67; PULSE 84; RESP 16; TEMP 36.1; O2SAT 98; BMI 21.9
[2024-10-26] MEDS: LACTATED RINGERS 1,000 ML 150 ML IV CONT (09:44)
--- NOTE | 2024-10-26 09:50 | P.PNAN_ITS ---
Anes - Initial Pre Proc Eval Procedure: Operation Date: 10/26/24 11:00 Proposed Procedures p Esophagogastroduodenoscopy - Arturo Garnica MD Date/Time: 10/26/24 09:50 Surgeon: Arturo Garnica MD Pre Op Diagnosis: dysphagia Patient Data Age: 84 Gender: F Height: 1.57 m Weight: 54.4 kg Last Vital Signs Temp 97 F L 10/26/24 09:32 Pulse 84 10/26/24 09:32 Resp 16 10/26/24 09:32 BP 156/67 H 10/26/24 09:32 Pulse Ox 98 10/26/24 09:32 O2 Del Method Room Air 10/26/24 09:32 Allergies Allergy/AdvReac Type Severity Reaction Status Date / Time rice Allergy Severe Swelling Verified 10/26/24 09:31 Home Medications ?Medication ?Instructions ?Recorded ?Confirmed ?Type Centrum Silver Women 1 tablet PO DAILY 01/03/20 10/26/24 History aspirin 81 mg chewable tablet 81 mg PO DAILY 01/03/20 10/26/24 History omega 5-lmf-kvc-fish oil 1,000 mg 1 cap PO DAILY 01/03/20 10/26/24 History (120 mg-180 mg) capsule (Fish Oil) vitamin B complex (B 1 tablet PO DAILY 09/06/20 10/26/24 History Complex-Vitamin B12 tablet) acetaminophen 500 mg capsule 500 mg PO Q6H PRN Pain (Scale 10/02/22 10/18/24 History Score 1-3) calcium 600 mg (as 1 tablet PO DAILY 04/23/23 10/26/24 History carbonate)-vitamin D3 10 mcg (400 unit) tablet (Calcium 600 + D(3)) ibuprofen 200 mg tablet (Motrin IB) 200 mg PO QHS 04/06/24 10/26/24 History losartan 25 mg tablet 25 mg PO DAILY #90 tabs 06/20/24 10/26/24 Rx metoprolol succinate 50 mg 50 mg PO DAILY #90 tabs 09/11/24 10/26/24 Rx tablet,extended release 24 hr rosuvastatin 20 mg tablet 20 mg PO DAILY #90 tabs 10/01/24 10/26/24 Rx inulin 2 gram chewable tablet 2 g PO DAILY 10/18/24 10/26/24 History (Fiber Delights) Patient hx anesthesia problems: none Family hx anesthesia problems: none Results Review: All pre-operative results and documents have been reviewed as part of the pre- operative evaluation. [facility] Past Medical History Medical History (Updated 06/20/24 @ 16:24 by Can Thomas MD) Stage 3b chronic kidney disease Tachycardia Gastroesophageal reflux disease Bronchiectasis Carotid atherosclerosis Atherosclerotic heart disease of [place] coronary artery without angina pectoris Cerebral atherosclerosis Emphysema, unspecified Atherosclerosis of aorta Age-related osteoporosis without current pathological fracture Chronic kidney disease, stage 3a Renal mass Overflow stress urinary incontinence in female Hemorrhoids Herpes zoster dermatitis (1993) Non-ST elevated myocardial infarction (non-STEMI) Surgical History Surgical History History of foot surgery (1990) Benign growth removed from left foot. History of angioplasty of peripheral vessel With stents. History of tonsillectomy History of appendectomy History of right knee surgery (1971) Family History Family History Father Acute myocardial infarction Sibling Heart disease Acute myocardial infarction Mother Hemochromatosis Cerebrovascular accident Leukemia Social History Social History Social History: Surrogate medical decision maker: Althea Tapia, daughter. Code status: Full code. Smoking status: Never smoker Second hand tobacco smoke exposure: No Alcohol intake: never Substance use: never Substance use type: does not use Do You Feel Safe in your Home?: Yes Lack of Transportation: No Lack of Food: Never True Current Housing: I Have Housing Concerned About Future Housing: No Difficulty Paying Gas/Electric Bills: No Difficulty Paying for Meds: No Currently Unemployed: YES Education: Don't Know Difficulty w/ Childcare or Family Care: No Living arrangements: alone Additional living arrangements comments: Patient lives in her own home. Daughter lives next door. Occupation/Education: retired Gender identity (if verbalized by the patient): Female Sexual Orientation (if Verbalized by the Patient): Straight or Heterosexual Spiritual care concerns: No Anes - Eval Final PreProcedure Day of Procedure 10/26/24 09:50 Patient weight: normal Heart: regular rate and rhythm Lungs: clear to auscultation Airway: Mallampati scale class III Neurological: alert and oriented Last oral intake: >/= 8 hours ASA classification: III Emergent: no Anesthetic plan: proceed Anesthesia type and monitoring: general GIVS and standard monitoring Results Review: All pre-operative results and documents have been reviewed as part of the pre- operative evaluation. Informed Consent: The patient's anesthetic plan and its attendant risks and benefits were discussed with the patient/family/POA. Questions were solicited and answers provided to the satisfaction of the patient/family/POA.
--- NOTE | 2024-10-26 10:05 | P.HP_ITS ---
History of Present Illness History of Present Illness Consent: Risks, benefits, and alternatives have been discussed and questions answered. Patient agrees to proceed with procedure. Chief complaint: dysphagia Narrative: Cora Lamar is a 84 year old female here for egd, last one many years ago, intermittent dysphagia. Daughter is here Review of Systems Review of Systems: All systems reviewed & are unremarkable except as noted in HPI and below PMFSH Past Medical History Medical History (Updated 10/26/24 @ 10:05 by Arturo Garnica MD) Dysphagia Stage 3b chronic kidney disease Tachycardia Gastroesophageal reflux disease Bronchiectasis Carotid atherosclerosis Atherosclerotic heart disease of [place] coronary artery without angina pectoris Cerebral atherosclerosis Emphysema, unspecified Atherosclerosis of aorta Age-related osteoporosis without current pathological fracture Chronic kidney disease, stage 3a Renal mass Overflow stress urinary incontinence in female Hemorrhoids Herpes zoster dermatitis (1993) Non-ST elevated myocardial infarction (non-STEMI) Surgical History Surgical History History of foot surgery (1990) Benign growth removed from left foot. History of angioplasty of peripheral vessel With stents. History of tonsillectomy History of appendectomy History of right knee surgery (1971) Family History Family History Father Acute myocardial infarction Sibling Heart disease Acute myocardial infarction Mother Hemochromatosis Cerebrovascular accident Leukemia Social History Social History Social History: Surrogate medical decision maker: Althea Tapia, daughter. Code status: Full code. Smoking status: Never smoker Second hand tobacco smoke exposure: No Alcohol intake: never Substance use: never Substance use type: does not use Do You Feel Safe in your Home?: Yes Lack of Transportation: No Lack of Food: Never True Current Housing: I Have Housing Concerned About Future Housing: No Difficulty Paying Gas/Electric Bills: No Difficulty Paying for Meds: No Currently Unemployed: YES Education: Don't Know Difficulty w/ Childcare or Family Care: No Living arrangements: alone Additional living arrangements comments: Patient lives in her own home. Daughter lives next door. Occupation/Education: retired Gender identity (if verbalized by the patient): Female Sexual Orientation (if Verbalized by the Patient): Straight or Heterosexual Spiritual care concerns: No Meds Home Medications and Allergies Home Medications ?Medication ?Instructions ?Recorded ?Confirmed ?Type Centrum Silver Women 1 tablet PO DAILY 01/03/20 10/26/24 History aspirin 81 mg chewable tablet 81 mg PO DAILY 01/03/20 10/26/24 History omega 2-xeh-dnb-fish oil 1,000 mg 1 cap PO DAILY 01/03/20 10/26/24 History (120 mg-180 mg) capsule (Fish Oil) vitamin B complex (B 1 tablet PO DAILY 09/06/20 10/26/24 History Complex-Vitamin B12 tablet) acetaminophen 500 mg capsule 500 mg PO Q6H PRN Pain (Scale 10/02/22 10/18/24 History Score 1-3) calcium 600 mg (as 1 tablet PO DAILY 04/23/23 10/26/24 History carbonate)-vitamin D3 10 mcg (400 unit) tablet (Calcium 600 + D(3)) ibuprofen 200 mg tablet (Motrin IB) 200 mg PO QHS 04/06/24 10/26/24 History losartan 25 mg tablet 25 mg PO DAILY #90 tabs 06/20/24 10/26/24 Rx metoprolol succinate 50 mg 50 mg PO DAILY #90 tabs 09/11/24 10/26/24 Rx tablet,extended release 24 hr rosuvastatin 20 mg tablet 20 mg PO DAILY #90 tabs 10/01/24 10/26/24 Rx inulin 2 gram chewable tablet 2 g PO DAILY 10/18/24 10/26/24 History (Fiber Delights) Allergies Allergy/AdvReac Type Severity Reaction Status Date / Time rice Allergy Severe Swelling Verified 10/26/24 09:31 Vital Signs Vital Signs - 24 hr 10/26/24 09:32 Temperature 97 F L Pulse Rate 84 Respiratory Rate 16 Blood Pressure 156/67 H Pulse Oximetry 98 Oxygen Delivery Room Air Exam Const: General: comfortable and no acute distress HENMT: Face/Nose/Sinus: Normal nares present Eyes: General: appearance normal, both eyes and all related structures Neck: Neck: no JVD Resp: Auscultation: clear to auscultation bilaterally Cardio: Rate: regular rate Rhythm: regular rhythm GI: Inspection: non-distended GI Palp: Yes Soft to palpation Skin: General skin exam: normal color Neuro: Speech: normal speech Extrem: General: normal to inspection Psych: Mental Status: mental status grossly normal Assessment and Plan Assessment and plan (1) Dysphagia: Code(s): R13.10 - Dysphagia, unspecified Status: Acute Assessment and Plan: egd
[2024-10-26 10:17] VITALS: BP 102/43; PULSE 79; RESP 21; O2SAT 100
[2024-10-26 10:27] VITALS: BP 114/52; PULSE 80; RESP 24; O2SAT 97
[2024-10-26 10:37] VITALS: BP 135/59; PULSE 77; RESP 19; O2SAT 99
== END 2024-10-26 10:55 | disposition home or self-care (01) ==
PROVIDERS: PCP Family Medicine; Referring Provider Family Medicine; Visit Provider Internal Medicine Gastroenterology
PROC: 0DJ08ZZ Inspection of Upper Intestinal Tract, Via Natural or Artificial Opening Endoscopic (ICD-10-PCS; CPT 43249; principal; 2024-10-26 11:00)
DX: K22.2 Esophageal obstruction (principal); K44.9 Diaphragmatic hernia without obstruction or gangrene; K21.9 Gastro-esophageal reflux disease without esophagitis; J43.9 Emphysema, unspecified; M81.0 Age-related osteoporosis without current pathological fracture; N18.32 Chronic kidney disease, stage 3b; R00.0 Tachycardia, unspecified; I67.2 Cerebral atherosclerosis; I70.0 Atherosclerosis of aorta; I25.2 Old myocardial infarction; Z79.82 Long term (current) use of aspirin; Z79.1 Long term (current) use of non-steroidal anti-inflammatories (NSAID); Z98.890 Other specified postprocedural states; Z95.820 Peripheral vascular angioplasty status with implants and grafts; Z80.6 Family history of leukemia; Z82.49 Family history of ischemic heart disease and other diseases of the circulatory system
CPT/HCPCS: 43249; C1726; J2003; J2704; J7120